=== PATIENT | female | born 1960 | race Caucasian/White ===

== ENCOUNTER 2019-07-09 08:21 | Inpatient (IN) ==
--- NOTE | 2019-07-09 09:32 | XRay Report ---
XR chest 2V routine CLINICAL HISTORY: continued cough/weakness COMPARISON STUDY: Chest radiograph July 02, 2019. FINDINGS: A right subclavian pacer is in place. There are median sternotomy wires. Moderate cardiomeg randy is unchanged. There is no pneumothorax or pleural effusion. Bilateral perihilar opacities have in creased since exam July 02, 2019. IMPRESSION: 1. Increase in bilateral perihilar opacities since chest radiograph of July 02, 2019. This patter n favors alveolar pulmonary edema however bilateral pneumonia could appear similar. Radiographic foll ow-up to ensure resolution is recommended. 2. Moderate cardiomegaly. Electronically signed by: Nick De La Rosa M.D. 07/09/2019 9:31 AM
[2019-07-09 09:54] LABS: Basophils # (auto) 0.14 K/uL (0-0.2); Basophils % (auto) 1.1 %; Eosinophils # (auto) 1.59 K/uL (0-0.5); Eosinophils % (auto) 12.2 %; Hemoglobin 8.5 g/dL (12.0-16.0); Immature Granulocytes # (auto) 0.11 K/uL (0.00-0.02); Immature Granulocytes % (auto) 0.8 %; Lymphocytes # (auto) 1.56 K/uL (1.2-3.4); Mean Corpuscular Hemoglobin 28.1 pg (25-34); Mean Corpuscular Hgb Conc 31.5 g/dL (32-36); Mean Corpuscular Volume 89.1 fL (80-100); Mean Platelet Volume 9.9 fL (7.4-10.4); Monocytes # (auto) 1.12 K/uL (0.11-0.59); Monocytes % (auto) 8.6 %; Neutrophils # (auto) 8.53 K/uL (1.4-6.5); Neutrophils % (auto) 65.3 %; Nucleated RBC # (auto) 0.02 K/uL (0-0); Nucleated RBC % (auto) 0.2 %; Platelet Count 338 K/uL (130-400); RDW Coefficient of Variation 15.7 % (11.5-14.5); RDW Standard Deviation 50.7 fL (36.4-46.3); Red Blood Count 3.03 M/uL (4.2-5.4); White Blood Count 13.05 K/uL (4.8-10.8)
--- NOTE | 2019-07-09 10:03 | Emergency Department Note ---
History of Present Illness General Chief complaint: Shortness of Breath/Dyspnea Stated complaint: SOB,COUGHING UP BLOOD Time Seen by Provider: 07/09/19 08:34 Source: patient and family Mode of arrival: ambulatory Limitations: no limitations History of Present Illness This 58-year-old white female presents with her family, for increasing shortness of breath and coughing up small amounts of blood. Patient has been seen in an ED twice previously in the last 3 weeks. She has also seen her PCP. She states she was initially placed on doxycycline but was not getting better. She was switched to Levaquin last week, and finished her last dose yesterday. She states she is not any better and is in fact feeling worse. She has nightly low- grade fevers that she states run at 100. Frequent sweats. No nausea, vomiting, or diarrhea. No dark stools. She was previously given an inhaler but has not been using it. Occasional productive cough. She denies any other cold symptoms. Her family accompanies her today. She states she does see a formstone fitter in [place], and was told that she likely has CHF. She was also diagnosed with pneumonia here last week. She notes that her INR has been rising. She just had her INR checked on but does not have the results. PCP is Dr. To. Home Medications Home Medications Medication Instructions Recorded Confirmed Type albuterol sulfate [ProAir HFA] 2 puff INHALATION Q6H PRN 07/02/19 07/09/19 History allopurinol 300 mg PO HS 07/02/19 07/09/19 History benzonatate 100 mg PO TID PRN 07/02/19 07/09/19 History calcium carbonate [Calcium 500] 500 mg PO BID 07/02/19 07/09/19 History carvedilol 12.5 mg PO BID 07/02/19 07/09/19 History cholecalciferol (vitamin D3) 5,000 unit PO ARNETT 07/02/19 07/09/19 History [Vitamin D3] cyanocobalamin (vitamin B-12) 1,000 mcg PO HS 07/02/19 07/09/19 History [Vitamin B-12] diclofenac sodium 40 drp TOPICAL QID 07/02/19 07/09/19 History doxycycline monohydrate 100 mg PO BID 07/02/19 07/09/19 History furosemide 40 mg PO QAM 07/02/19 07/09/19 History glucosamine sulfate [Glucosamine] 1,500 mg PO DAILY 07/02/19 07/09/19 History levothyroxine 175 mcg PO TH 07/02/19 07/09/19 History levothyroxine 200 mcg PO SUMOTUWEFRSA 07/02/19 07/09/19 History lisinopril 40 mg PO DAILY 07/02/19 07/09/19 History magnesium oxide 400 mg PO TID 07/02/19 07/09/19 History metformin 500 mg PO BIDM 07/02/19 07/09/19 History montelukast 10 mg PO QAM 07/02/19 07/09/19 History potassium chloride 10 meq PO QAM 07/02/19 07/09/19 History warfarin 2 mg PO TH 07/02/19 07/09/19 History warfarin 10 mg PO SUMOTUWEFRSA 07/02/19 07/09/19 History warfarin 10 mg PO TH 07/02/19 07/09/19 History Allergies Allergy/AdvReac Type Severity Reaction Status Date / Time azithromycin Allergy Intermediate Rash Unverified 07/09/19 09:11 [From Zithromax Z-Jhoan] Sulfa (Sulfonamide Allergy Intermediate Rash Unverified 07/09/19 09:11 Antibiotics) Past Med/Surg History Medical History Hemoptysis (Acute) Gout (Chronic) Anemia (Acute) Vitamin B12 deficiency (Chronic) Neuropathy (Chronic) Diabetes mellitus type 2, controlled (Chronic) Hypothyroidism (Chronic) Atrial fibrillation (Chronic) CHF (congestive heart failure) (Acute) Pneumonia (Acute) Pacemaker (Chronic) Status post tubal ligation (Chronic) Surgical History History of mitral valve replacement with mechanical valve (Chronic) Status post appendectomy (Chronic) Status post colonoscopy (Chronic) Status post placement of cardiac pacemaker (Chronic) Family History Father Heart disease Diabetes Brother Colorectal cancer Brother Heart disease Diabetes Mother Degenerative disease of basal ganglia Other No significant family history Social History (Reviewed 07/09/19 @ 16:22 by MIKE Flores Preferred Language: Korean Communication Ability: Effective Optics Engineer Required: No Beliefs That Will Affect Care: None marital status: Current Living Situation: Spouse and Family current occupational status: employed Other Information That Helps Us Care for You: No Feels Safe at Home: Yes Safety Concerns: Feels Safe At This Time Smoking Status: Former smoker Do You Dip or Chew Tobacco: No ; Second Hand Exposure: No ; Tobacco Cessation Education Requested by Patient: No Hx Alcohol Use: No Hx Substance Use: No Review of Systems A total of 10 systems reviewed and were otherwise negative Physical Exam Vital Signs Vital Signs - 24 hr 07/09/19 08:28 07/09/19 09:15 07/09/19 10:37 Temperature 36.6 C Temperature Source Oral Sepsis Recent Fever Within 48 Hours No Sepsis Action Taken by Nursing No Action Required Pulse Rate 71 Pulse Rate [Finger] 72 Respiratory Rate 20 18 Respiratory Effort / Characteristics Non-Labored Spontaneous Respiratory Depth Normal Normal Respiratory Pattern Regular Blood Pressure 118/57 L Blood Pressure [Right Arm] 125/59 L Blood Pressure Mean 77 Blood Pressure Mean [Right Arm] 81 Pulse Oximetry 92 87 L Oxygen Delivery Method Room Air Room Air Room Air General: Well-developed, well-nourished, middle-aged white female, in no acute distress. She does seem slightly short of breath. Sitting on the bed. Alert and oriented. Skin: Warm and dry with good turgor. No rashes or lesions. No ecchymosis or erythema. The patient is not diaphoretic. No abrasions. HEENT: Normocephalic atraumatic. Eyes PERRLA, EOMI. No conjunctiva or scleral injection. Ears TMs intact bilaterally with good light reflexes. No erythema or bulging. No hemotympanum. Canals are patent. Nares patent bilaterally without turbinate enlargement. No significant drainage. No epistaxis. Oropharynx without erythema or exudate. Uvula midline, oral mucosa moist. No lesions present. Fair dentition. Heart: Heart RRR. 2/6 systolic ejection murmur noted. No gallops or rubs. Peripheral pulses are 2+. Lungs: Lungs are clear to auscultation. No crackles rhonchi or wheezing. Good air movement. Prolonged exhalation. The patient is able to take a deep breath. Abdomen: Abdomen was inspected, auscultated, and palpated. Obese. Bowel sounds present x 4. Soft, nontender to palpation. No hepato-splenomegaly. No masses noted. No rebound. Musculoskeletal: Gross motor function of the upper and lower extremities is intact and unremarkable. Neurologic: Gross sensation is intact across the upper and lower extremities by soft touch. Course Administered Medications Allopurinol (Zyloprim) 300 mg PO HS JENELLE Stop: 08/08/19 20:59 Last Admin: 07/09/19 20:25 Dose: 300 mg Documented by: [id number] Carvedilol (Coreg) 12.5 mg PO BID [facility] Stop: 08/08/19 20:59 Last Admin: 07/10/19 08:26 Dose: 12.5 mg Documented by: [id number] Admin: 07/09/19 20:25 Dose: 12.5 mg Documented by: [id number] Insulin Aspart (Novolog Flexpen) 0 units SC ACHS [facility] Stop: 08/08/19 16:29 Last Admin: 07/10/19 17:15 Dose: 3 units Documented by: [id number] Cosigned by: [id number] Admin: 07/10/19 11:57 Dose: 1 units Documented by: [id number] Cosigned by: [id number] Admin: 07/10/19 08:21 Dose: 3 units Documented by: [id number] Cosigned by: [id number] Admin: 07/09/19 20:27 Dose: Not Given Documented by: [id number] Cosigned by: [id number] Admin: 07/09/19 17:30 Dose: Not Given Documented by: [id number] Cosigned by: [id number] Insulin Glargine (Lantus Solostar Pen) 0 - 15 units SC BID [facility]; Protocol Stop: 08/08/19 20:59 Last Admin: 07/10/19 08:21 Dose: Not Given Documented by: [id number] Cosigned by: [id number] Admin: 07/09/19 20:27 Dose: Not Given Documented by: [id number] Cosigned by: [id number] Levothyroxine Sodium (Synthroid) 200 mcg PO [email or web address] [facility] Stop: 08/08/19 13:29 Last Admin: 07/10/19 06:30 Dose: 200 mcg Documented by: [id number] Admin: 07/09/19 13:15 Dose: Not Given Documented by: [id number] Lisinopril (Zestril) 40 mg PO DAILY JENELLE Stop: 08/09/19 08:59 Last Admin: 07/10/19 08:27 Dose: 40 mg Documented by: [id number] Magnesium Oxide (Mag-Ox) 400 mg PO TID JENELLE Stop: 08/08/19 13:59 Last Admin: 07/10/19 14:30 Dose: 400 mg Documented by: [id number] Admin: 07/10/19 08:27 Dose: 400 mg Documented by: [id number] Admin: 07/09/19 20:26 Dose: 400 mg Documented by: [id number] Admin: 07/09/19 14:07 Dose: 400 mg Documented by: [id number] Montelukast Sodium (Singulair) 10 mg PO QAM JENELLE Stop: 08/09/19 08:59 Last Admin: 07/10/19 08:27 Dose: 10 mg Documented by: [id number] Medical Decision Making Differential Diagnosis Pneumonia, CHF, COPD, PE, pneumonitis, hemoptysis, GI bleed Medical Records Attestation: I reviewed the patient's medical records. Home Medications Current Medication List: was personally reviewed by me Laboratory Data Attestation: I reviewed the patient's lab results. CBC, chemistry panel, PT/INR, and BNP were obtained. CBC shows elevated WBCs at 13.0. Worsening anemia at hemoglobin 8.5 hematocrit 27.0. PT 58.6. INR 6.5. BUN 26 with creatinine 1.11. BNP normal at 178. Old records were reviewed. On June 24 WBCs were 11.5 with hemoglobin of 10.2 and hematocrit 32.1. June 24 INR was 4.0. BNP was 787 at that time. 3 days ago WBCs were 11.1 with an H&H of 9.1 and 29.3. INR at that time was 4.4. Result diagrams: 07/10/19 06:19 07/10/19 06:19 Lab Results 07/09/19 07/09/19 07/09/19 Range/Units 09:40 09:40 09:40 WBC 13.05 H (4.8-10.8) K/uL RBC 3.03 L (4.2-5.4) M/uL Hgb 8.5 L (12.0-16.0) g/dL Hct 27.0 L (37-47) % MCV 89.1 (80-100) fL MCH 28.1 (25-34) pg MCHC 31.5 L (32-36) g/dL RDW Std Deviation 50.7 H (36.4-46.3) fL RDW Coeff of Praveena 15.7 H (11.5-14.5) % Plt Count 338 (130-400) K/uL MPV 9.9 (7.4-10.4) fL Immature Gran % (Auto) 0.8 % Neut % (Auto) 65.3 % Lymph % (Auto) 12.0 % [place] % (Auto) 8.6 % Eos % (Auto) 12.2 % Baso % (Auto) 1.1 % Immature Gran # (Auto) 0.11 H (0.00-0.02) K/uL Neut # (Auto) 8.53 H (1.4-6.5) K/uL Lymph # (Auto) 1.56 (1.2-3.4) K/uL [place] # (Auto) 1.12 H (0.11-0.59) K/uL Eos # (Auto) 1.59 H (0-0.5) K/uL Baso # (Auto) 0.14 (0-0.2) K/uL Absolute Nucleated RBC 0.02 H (0-0) K/uL Nucleated RBC % (auto) 0.2 % PT 58.6 H (9.0-12.0) Seconds INR 6.5 H* (0.9-1.1) Sodium 138 (136-145) mmol/L Potassium 4.3 (3.5-5.1) mmol/L Chloride 107 (98-107) mmol/L Carbon Dioxide 26 (21-32) mmol/L Anion Gap 5.0 (3-11) BUN 26 H (7-18) mg/dl Creatinine 1.11 (0.6-1.2) mg/dl Est Cr Clr Drug Dosing 63.2 ml/min Est GFR ( Amer) 63.4 Est GFR (Non-Af Amer) 54.7 BUN/Creatinine Ratio 23.6 H (10-20) Glucose 103 H (70-99) mg/dl Calcium 9.1 (8.5-10.1) mg/dl Total Bilirubin 1.0 (0.2-1) mg/dl Direct Bilirubin 0.2 (0-0.2) mg/dl AST 23 (15-37) U/L ALT 17 (12-78) U/L Alkaline Phosphatase 96 (45-117) U/L NT-Pro-B Natriuret Pep 178 (0-900) pg/ml Total Protein 7.3 (6.4-8.2) gm/dl Albumin 3.3 L (3.4-5.0) gm/dl Globulin 4.0 (2.5-4.0) gm/dl Albumin/Globulin Ratio 0.8 L (0.9-2) Imaging Data Radiologist's Impression: Chest x-ray obtained today shows increase in bilateral perihilar opacities since chest radiograph of July 02, 2019. This pattern favors alveolar pulmonary edema however bilateral pneumonia could appear s imilar. Radiographic follow-up to ensure resolution is recommended. This was read by radiology and reviewed by me. Blood Pressure Blood Pressure Findings: Normal blood pressure MDM Narrative Patient was evaluated in B3. IV was established. Labs were obtained. She was initially hypoxic at 87% on room air. She was given oxygen 4 L by nasal cannula and saturation improved to mid 90s. Chest x-ray was obtained that suggested worsening pneumonia or pulmonary edema. WBCs are elevated and INR is supratherapeutic at 6.5. She is also anemic. Because of the multitude of her findings, I do think she would be better managed as an inpatient. Discussion was held with the family and they agree. Patient is in agreement. Hospitalist service was consulted. Please see that dictation for final management. Given her recent completion of 2 separate courses of oral antibiotics, no additional IV antibiotics were provided at this time. I will leave that to the hospitalist team. Patient remained stable while in the ED. Patient was seen in conjunction with Dr. Sams, who also evaluated the patient and concurred with today's diagnosis and treatment plan. Impression & Plan Anemia, Hemoptysis, Hypoxia, Abnormal chest xray Discharge Plan Visit Data *Final* Discharge Date/Time: 07/09/19 12:29 Chief Complaint: Shortness of Breath/Dyspnea Stated Complaint: SOB,COUGHING UP BLOOD ED Provider: Dany Sams ED Midlevel Provider: Danyel Elkins Discharge Problem: Anemia, Hemoptysis, Hypoxia, Abnormal chest xray Patient Disposition: Admitted As Inpatient Discharge Instructions Interventions: ED Discharge Assessment Last Done: 07/09/19 12:29
[2019-07-09 10:11] LABS: Albumin Level 3.3 gm/dl (3.4-5.0); BUN Creatinine Ratio 23.6 (10-20); Bilirubin Direct 0.2 mg/dl (0-0.2); Calcium 9.1 mg/dl (8.5-10.1); Creatinine Clr Calc Pharmacy 63.2 ml/min; Est GFR (African American) 63.4; Est GFR (Non-African American) 54.7; Potassium 4.3 mmol/L (3.5-5.1); Prothrombin Time 58.6 Seconds (9.0-12.0)
[2019-07-09 10:14] LABS: Albumin Globulin Ratio 0.8 (0.9-2); Total Protein 7.3 gm/dl (6.4-8.2)
[2019-07-09 10:35] LABS: INR 6.5 (0.9-1.1)
[2019-07-09] MEDS ORDERED: ALBUTEROL HFA 8 GM INHALER INH PRN (12:45)
--- NOTE | 2019-07-09 13:00 | History & Physical Report ---
Date of Service July 09, 2019 Assessment & Plan (1) Hypoxia: Patient presented to ED with progressive dyspnea. O2 saturation as low as 87% on RA. Hypoxia could be secondary to cardiac or pulmonary etiologies as discussed below. Continue supplemental O2. (2) Abnormal chest xray: Chest x-ray suggests pulmonary edema +/- bilat infiltrates. History of valvular heart disease; baseline LVEF not available at this time. Pro-BNP normal, argues against decompensated CHF. Could have noncardiac pulmonary edema. Doubt pulmonary embolism- very unlikely in light of supratherapeutic INR and normal D-dimer last week. Consider infectious etiologies. Consider vasculitis (e.g., GPA). Consider alveolar hemorrhage. Consider occupational exposure (cleaning supplies, pool chemicals). Check CT chest (very low clinical suspicion for PE, so will do without contrast). Check echo. Check procalcitonin, blood cultures, Legionella IgM, Mycoplasma IgM, ESR, c- reactive protein, ANCA screen, UA. Check sputum gram stain, routine culture, AFB. Check nasopharyngeal swab for influenza A/B and MRSA. Has received doxycycline and levofloxacin over past 2 weeks; will not start additional antibiotics unless pending data support need or clinical status changes. Consult Cardiology and Pulmonary Medicine. (3) Hemoptysis: As noted above. (4) Anemia: Hgb today 8.5, compared to 10 on 07/02/19. MCV 89. INR supratherapeutic. History of B12 deficiency on oral replacement. Patient experiencing hemoptysis, but relatively small volumes. She reports dark urine- UA pending. No apparent melena or hematochezia. Check Fe studies, B12, folate. Check stools for OB. Monitor H/H. Type and screen pRBC's. Transfuse as necessary per guidelines. Titrate warfarin to maintain INR in therapeutic range. (5) Atrial fibrillation: Chronic atrial fibrillation. Continue carvedilol and warfarin. (6) History of mitral valve replacement with mechanical valve: S/P MVR 18 years ago with mechanical valve. Details of underlying valvular pathology not available at this time. Continue warfarin. Check echo to assess valve structure / function. (7) Diabetes mellitus type 2, controlled: Well-controlled on metformin. Random glucose in ED 103. Check hemoglobin A1C. Hold metformin during hospital stay. Lantus / NovoLog per protocol. (8) Hypothyroidism: Patient reports that recent TSH was normal. Continue current dose of levothyroxine. (9) Gout: No recent flares. Continue allopurinol. (10) Neuropathy: Attributed to B12 deficiency. (11) Vitamin B12 deficiency: B12 deficiency on oral replacement. Check B12 level to ensure adequate absorption. (12) DVT prophylaxis: On warfarin for AF and mechanical MVR. INR supratherapeutic. Hold warfarin today. Check INR daily and titrate warfarin to maintain INR 2.5 - 3.5. (13) Discharge planning issues: Anticipated discharge to home. Primary care follow-up with Dr. To. Cardiology follow-up with Dr. Gallardo. INCOMPLETE DATA: Cardiology records from Dr. Gallardo's office requested. History of Present Illness Chief Complaint: shortness of breath, cough, hemoptysis Primary Care Provider: Brown To MD 58 YO female followed by Dr. To in [place] for primary care and Dr. Gallardo in [place] for Cardiology. History of congenital AV block since childhood and mitral valve disease. Mitral valve replacement with a mechanical valve and pacemaker performed at [facility] at the age of 40. Other medical problems include diabetes mellitus type 2, hypothyroidism, gout. She was in her usual state of health until about 3 weeks ago when she developed chills, malaise, wheezing, and a cough. Cough was productive of small blood clots. She takes warfarin for mechanical MVR + AF; INR's have recently been therapeutic / supratherapeutic. Seen in ED at [facility] around 06/24. [place] to have pneumonia and was prescribed a course of doxycycline. Came to the ED at [facility] 07/02/19 because of persistent hemoptysis and dyspnea. INR was 4.0. D-dimer was negative. Chest x-ray showed cardiomegaly, mild CHF, perihilar airspace opacities. Antibiotic therapy was changed from doxycycline to levofloxacin. She has not had any recent weight gain or edema. Pt not aware of being diagnosed with CHF in past. Last echo was about 1 year ago. Usually takes furosemide 40 mg daily. Instructed to increase furosemide dose to 80 mg daily for 4 days because of apparent CHF on chest x-ray. She diuresed and lost several pounds, but there was no significant improvement of her SOB. Returned to ED today with progressive malaise, cough, hemoptysis, dyspnea. Possible low grade temp at home. No chest pain. O2 sats in ED were as low as 87%. [place] less dyspneic after administration of O2. 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 Exposed to cleaning agents, but nothing that she identifies as caustic. 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 No travel history. No sick contacts. Allergies Allergy/AdvReac Type Severity Reaction Status Date / Time azithromycin Allergy Intermediate Rash Unverified 07/09/19 09:11 [From Zithromax Z-Jhoan] Sulfa (Sulfonamide Allergy Intermediate Rash Unverified 07/09/19 09:11 Antibiotics) Home Medications Home Medications Medication Instructions Recorded Confirmed Type albuterol sulfate [ProAir HFA] 2 puff INHALATION Q6H PRN 07/02/19 07/09/19 History allopurinol 300 mg PO HS 07/02/19 07/09/19 History benzonatate 100 mg PO TID PRN 07/02/19 07/09/19 History calcium carbonate [Calcium 500] 500 mg PO BID 07/02/19 07/09/19 History carvedilol 12.5 mg PO BID 07/02/19 07/09/19 History cholecalciferol (vitamin D3) 5,000 unit PO ARNETT 07/02/19 07/09/19 History [Vitamin D3] cyanocobalamin (vitamin B-12) 1,000 mcg PO HS 07/02/19 07/09/19 History [Vitamin B-12] diclofenac sodium 40 drp TOPICAL QID 07/02/19 07/09/19 History doxycycline monohydrate 100 mg PO BID 07/02/19 07/09/19 History furosemide 40 mg PO QAM 07/02/19 07/09/19 History glucosamine sulfate [Glucosamine] 1,500 mg PO DAILY 07/02/19 07/09/19 History levothyroxine 175 mcg PO TH 07/02/19 07/09/19 History levothyroxine 200 mcg PO SUMOTUWEFRSA 07/02/19 07/09/19 History lisinopril 40 mg PO DAILY 07/02/19 07/09/19 History magnesium oxide 400 mg PO TID 07/02/19 07/09/19 History metformin 500 mg PO BIDM 07/02/19 07/09/19 History montelukast 10 mg PO QAM 07/02/19 07/09/19 History potassium chloride 10 meq PO QAM 07/02/19 07/09/19 History warfarin 2 mg PO TH 07/02/19 07/09/19 History warfarin 10 mg PO SUMOTUWEFRSA 07/02/19 07/09/19 History warfarin 10 mg PO TH 07/02/19 07/09/19 History Past Med/Surg History Medical History Hemoptysis (Acute) Gout (Chronic) Anemia (Acute) Vitamin B12 deficiency (Chronic) Neuropathy (Chronic) Diabetes mellitus type 2, controlled (Chronic) Hypothyroidism (Chronic) Atrial fibrillation (Chronic) CHF (congestive heart failure) (Acute) Pneumonia (Acute) Pacemaker (Chronic) Status post tubal ligation (Chronic) Surgical History History of mitral valve replacement with mechanical valve (Chronic) Status post appendectomy (Chronic) Status post colonoscopy (Chronic) Status post placement of cardiac pacemaker (Chronic) Family History Father Heart disease Diabetes Brother Colorectal cancer Brother Heart disease Diabetes Mother Degenerative disease of basal ganglia Other No significant family history Social History Preferred Language: Sinhala Communication Ability: Effective Caul Fat Puller Required: No Beliefs That Will Affect Care: None marital status: Current Living Situation: Spouse and Family current occupational status: employed Other Information That Helps Us Care for You: No Feels Safe at Home: Yes Safety Concerns: Feels Safe At This Time Smoking Status: Former smoker Do You Dip or Chew Tobacco: No ; Second Hand Exposure: No ; Tobacco Cessation Education Requested by Patient: No Hx Alcohol Use: No Hx Substance Use: No Review of Systems Constitutional: + fever (? low grade), + malaise and + weight gain (wt fluctuates) Eyes: no diplopia and no worsening vision Ear, Nose, Mouth, Throat: no nasal congestion, no sinus pain/pressure and no sore throat Respiratory: as per Subjective / HPI Cardiovascular: as per Subjective / HPI Gastrointestinal: + diarrhea/loose stools (chronic, intermittent, attributed to magnesium supplement); no nausea, no vomiting, no constipation, no blood in stools and no melena Genitourinary: no dysuria and no hematuria Musculoskeletal: + joint pain Neurologic: no headache(s) neuropathy attributed to B12 deficiency Endocrine: no polydipsia and no polyuria blood sugars well controlled, usually in low-mid 100's Hematologic / Lymphatic: no lymphadenopathy Physical Exam Constitutional: WD/WN, vitals as above no acute distress Eyes: PERRL, conjunctivae normal, anicteric sclerae ENMT: external ear and nose normal, oropharynx normal Neck: trachea midline, no thyromegaly Respiratory: normal respiratory effort, lungs clear to auscultation Cardiovascular: Rate/Rhythm: regular rate Heart Sounds: + murmur (mechanical valve sounds in mitral position with II/ systolic murmur); no gallop and no cardiac rub Vessels: normal peripheral pulses and dorsalis pedis pulses present; no JVD Extremities: normal capillary refill and + edema (trace pretibial); no calf tenderness Gastrointestinal (Abdomen): normal bowel sounds, soft, nontender, no hepatosplenomegaly ((exam limited due to body habitus)) Musculoskeletal: Head/Neck/Chest: neck supple Extremities: strength 5/5 throughout; no cyanosis and no clubbing Skin: no rashes, warm and dry mild pretibial venous stasis changes Neurologic: PERRL, EOMI no facial palsy no dysarthria or aphasia patellar DTR's 1/2 bilat Psychiatric: Orientation: alert and oriented x 3 Affect: euthymic affect Lymphatic: no cervical lymphadenopathy Results & Data Vital Signs (Past 12 Hours) Vital Signs Temp Pulse Pulse Resp BP BP Pulse Ox 07/09/19 12:49 36.6 C 75 18 132/77 96 07/09/19 12:00 73 20 136/70 93 07/09/19 10:37 72 18 125/59 L 87 L 07/09/19 08:28 36.6 C 71 20 118/57 L 92 Laboratory Results Laboratory Results - last 24 hr 07/09/19 07/09/19 07/09/19 09:40 09:40 09:40 WBC 13.05 H RBC 3.03 L Hgb 8.5 L Hct 27.0 L MCV 89.1 MCH 28.1 MCHC 31.5 L RDW Std Deviation 50.7 H RDW Coeff of Praveena 15.7 H Plt Count 338 MPV 9.9 Immature Gran % (Auto) 0.8 Neut % (Auto) 65.3 Lymph % (Auto) 12.0 [place] % (Auto) 8.6 Eos % (Auto) 12.2 Baso % (Auto) 1.1 Immature Gran # (Auto) 0.11 H Neut # (Auto) 8.53 H Lymph # (Auto) 1.56 [place] # (Auto) 1.12 H Eos # (Auto) 1.59 H Baso # (Auto) 0.14 Absolute Nucleated RBC 0.02 H Nucleated RBC % (auto) 0.2 PT 58.6 H INR 6.5 H* Sodium 138 Potassium 4.3 Chloride 107 Carbon Dioxide 26 Anion Gap 5.0 BUN 26 H Creatinine 1.11 Est Cr Clr Drug Dosing 63.2 Est GFR ( Amer) 63.4 Est GFR (Non-Af Amer) 54.7 BUN/Creatinine Ratio 23.6 H Glucose 103 H Calcium 9.1 Total Bilirubin 1.0 Direct Bilirubin 0.2 AST 23 ALT 17 Alkaline Phosphatase 96 NT-Pro-B Natriuret Pep 178 Total Protein 7.3 Albumin 3.3 L Globulin 4.0 Albumin/Globulin Ratio 0.8 L Diagnostic Findings Chest x-ray reviewed by undersigned and formally interpreted by Radiology: FINDINGS: A right subclavian pacer is in place. There are median sternotomy wires. Moderate cardiomegaly is unchanged. There is no pneumothorax or pleural effusion. Bilateral perihilar opacities have increased since exam July 02, 2019. IMPRESSION: 1. Increase in bilateral perihilar opacities since chest radiograph of July 02, 2019. This pattern favors alveolar pulmonary edema however bilateral pneumonia could appear similar. Radiographic follow-up to ensure resolution is recommended. 2. Moderate cardiomegaly. Electronically signed by: Nick De La Rosa M.D. 07/09/2019 9:31 AM ECG Additional Comments: EKG performed 07/02/19 reviewed and demonstrated paced rhythm at 62/min, underlying AF. Code Status & VTE Plan VTE Prophylaxis Plan VTE Prophylaxis will be ordered: Yes
[2019-07-09] MEDS: LEVOTHYROXINE SODIUM 200 MCG TABLET PO SCH (13:15)
[2019-07-09] MEDS ORDERED: PNEUMOCOCCAL ADMINISTRATION CHARGE ONE (13:45)
[2019-07-09] MEDS ORDERED: PNEUMOCOCCAL POLYSACCHARIDES 25 MCG/0.5 ML VIAL/SYR IM ONE (13:45)
--- NOTE | 2019-07-09 13:59 | Cardiology Consultation ---
Date of Consultation July 09, 2019 Assessment & Plan (1) Hemoptysis: (2) Anemia: (3) Diabetes mellitus type 2, controlled: (4) Atrial fibrillation: (5) History of mitral valve replacement with mechanical valve: (6) Pacemaker: (7) Pneumonitis: I do not believe the patient's symptoms are necessarily due to heart failure. She does not examine like she is in heart failure. I believe that we are dealing with a pneumonitis of unknown etiology. Pulmonary consult is planned. I will obtain an echocardiogram to evaluate her mechanical mitral valve as well as systolic function. I would continue with her current medications however, I would hold her warfarin until her INR is more therapeutic. I do not believe any additional diuresis will make a clinical difference. The hemoptysis can certainly be related to the warfarin however, she has been on this medication for almost 20 years without previous bleeding. She is currently anemic most likely from chronic blood loss. We will follow along with you during her hospital stay. We will try to obtain records from [facility]. History of Present Illness Attending Physician: Homero Zarate MD History of Present Illness This is a 58-year-old female who has received the majority of her health care through [facility]. At age 3 she developed rheumatic fever. She also has a history of congenital heart block but required no immediate treatment. Then in 1999 she received a mechanical mitral valve with the surgery being completed at [facility] along with a permanent pacemaker. It is assumed, the surgery was completed due to mitral valve disease from rheumatic fever uncertain if that was mitral stenosis or mitral regurgitation. The patient has done well over the years. 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 This past summer was particularly difficult for her. There were several youth camps through the [facility]. Then in late May she began to develop increasing shortness of breath. She states that this is not necessarily unusual for her, at the end of each summer and into the fall she usually has some increased shortness of breath requiring an inhaler and some extra diuretics. But then on June 24 she developed hemoptysis. She was seen at [facility] and diagnosed with pneumonia. She was started on Biaxin. She continued to have hemoptysis and shortness of breath. When she had no improvement her wind site manager increased her Lasix to 80 mg daily for 3 days. She completed her course of Biaxin. She had no improvement in her symptoms with the increased Lasix. She was then given a course of Levaquin. She continued to have hemoptysis and no improvement in her symptoms of dyspnea. She states that she cannot walk across the room without becoming short of breath. She was to see 1 of our local windows mobile developer as an outpatient but when her symptoms did not improved she presented to the emergency department where she has been admitted. Of note in the emergency department she had an O2 sat of 84% on room air. She also had a chest x-ray which indicates bilateral pulmonary infiltrates either due to pulmonary edema, interstitial pneumonitis or bilateral pneumonia. The chest x-ray also shows cardiomegaly. She stopped smoking many years ago. She does not use either nicotine or cannabis vaporizer. About a year ago she was diagnosed with diabetes. No previous history of kidney disease or strokes. Allergies Allergy/AdvReac Type Severity Reaction Status Date / Time azithromycin Allergy Intermediate Rash Unverified 07/09/19 09:11 [From Zithromax Z-Jhoan] Sulfa (Sulfonamide Allergy Intermediate Rash Unverified 07/09/19 09:11 Antibiotics) Home Medications Home Medications Medication Instructions Recorded Confirmed Type albuterol sulfate [ProAir HFA] 2 puff INHALATION Q6H PRN 07/02/19 07/09/19 History allopurinol 300 mg PO HS 07/02/19 07/09/19 History benzonatate 100 mg PO TID PRN 07/02/19 07/09/19 History calcium carbonate [Calcium 500] 500 mg PO BID 07/02/19 07/09/19 History carvedilol 12.5 mg PO BID 07/02/19 07/09/19 History cholecalciferol (vitamin D3) 5,000 unit PO ARNETT 07/02/19 07/09/19 History [Vitamin D3] cyanocobalamin (vitamin B-12) 1,000 mcg PO HS 07/02/19 07/09/19 History [Vitamin B-12] diclofenac sodium 40 drp TOPICAL QID 07/02/19 07/09/19 History doxycycline monohydrate 100 mg PO BID 07/02/19 07/09/19 History furosemide 40 mg PO QAM 07/02/19 07/09/19 History glucosamine sulfate [Glucosamine] 1,500 mg PO DAILY 07/02/19 07/09/19 History levothyroxine 175 mcg PO TH 07/02/19 07/09/19 History levothyroxine 200 mcg PO SUMOTUWEFRSA 07/02/19 07/09/19 History lisinopril 40 mg PO DAILY 07/02/19 07/09/19 History magnesium oxide 400 mg PO TID 07/02/19 07/09/19 History metformin 500 mg PO BIDM 07/02/19 07/09/19 History montelukast 10 mg PO QAM 07/02/19 07/09/19 History potassium chloride 10 meq PO QAM 07/02/19 07/09/19 History warfarin 2 mg PO TH 07/02/19 07/09/19 History warfarin 10 mg PO SUMOTUWEFRSA 07/02/19 07/09/19 History warfarin 10 mg PO TH 07/02/19 07/09/19 History Patient History Medical History Hemoptysis (Acute) Gout (Chronic) Anemia (Acute) Vitamin B12 deficiency (Chronic) Neuropathy (Chronic) Diabetes mellitus type 2, controlled (Chronic) Hypothyroidism (Chronic) Atrial fibrillation (Chronic) CHF (congestive heart failure) (Acute) Pneumonia (Acute) Pacemaker (Chronic) Status post tubal ligation (Chronic) Surgical History History of mitral valve replacement with mechanical valve (Chronic) Status post appendectomy (Chronic) Status post colonoscopy (Chronic) Status post placement of cardiac pacemaker (Chronic) Family History Father Heart disease Diabetes Brother Colorectal cancer Brother Heart disease Diabetes Mother Degenerative disease of basal ganglia Other No significant family history Social History Preferred Language: Portuguese Communication Ability: Effective Crown Ironer Operator Required: No Beliefs That Will Affect Care: None marital status: Current Living Situation: Spouse and Family current occupational status: employed Other Information That Helps Us Care for You: No Feels Safe at Home: Yes Safety Concerns: Feels Safe At This Time Smoking Status: Former smoker Do You Dip or Chew Tobacco: No ; Second Hand Exposure: No ; Tobacco Cessation Education Requested by Patient: No Hx Alcohol Use: No Hx Substance Use: No Review of Systems Review of Systems: All systems reviewed & are unremarkable except as noted in HPI & below Nothing additional Physical Exam Physical Exam: General: no acute distress and stated age Head: normocephalic, no masses, lesions, tenderness or abnormalities Eyes: conjunctiva are pink and non-injected, sclera clear Neck: supple, no adenopathy, no bruits, normal jugular venous pulse, no hepatojugular reflux Chest: normal shape and normal respiratory effort Lungs: clear to auscultation and percussion Cardiac Exam: - regular rate & rhythm, no murmurs gallops or rubs - normal S1, mechanical S2 Pulses: 2(+) throughout Abdomen: abdomen soft, non-tender, no abnormal masses and no hepatosplenomegaly Musculoskeletal: no gait disturbance, no joint inflammation, no deforming arthritis Extremities: no edema and no cyanosis Neuro: grossly normal exam Results & Data Vital Signs (Past 12 Hours) Vital Signs Temp Pulse Pulse Resp BP BP Pulse Ox 07/09/19 12:49 36.6 C 75 18 132/77 96 07/09/19 12:00 73 20 136/70 93 07/09/19 10:37 72 18 125/59 L 87 L 07/09/19 08:28 36.6 C 71 20 118/57 L 92 Laboratory Results Laboratory Results - last 24 hr 07/09/19 07/09/19 07/09/19 09:40 09:40 09:40 WBC 13.05 H RBC 3.03 L Hgb 8.5 L Hct 27.0 L MCV 89.1 MCH 28.1 MCHC 31.5 L RDW Std Deviation 50.7 H RDW Coeff of Praveena 15.7 H Plt Count 338 MPV 9.9 Immature Gran % (Auto) 0.8 Neut % (Auto) 65.3 Lymph % (Auto) 12.0 [place] % (Auto) 8.6 Eos % (Auto) 12.2 Baso % (Auto) 1.1 Immature Gran # (Auto) 0.11 H Neut # (Auto) 8.53 H Lymph # (Auto) 1.56 [place] # (Auto) 1.12 H Eos # (Auto) 1.59 H Baso # (Auto) 0.14 Absolute Nucleated RBC 0.02 H Nucleated RBC % (auto) 0.2 PT 58.6 H INR 6.5 H* Sodium 138 Potassium 4.3 Chloride 107 Carbon Dioxide 26 Anion Gap 5.0 BUN 26 H Creatinine 1.11 Est Cr Clr Drug Dosing 63.2 Est GFR ( Amer) 63.4 Est GFR (Non-Af Amer) 54.7 BUN/Creatinine Ratio 23.6 H Glucose 103 H Calcium 9.1 Total Bilirubin 1.0 Direct Bilirubin 0.2 AST 23 ALT 17 Alkaline Phosphatase 96 NT-Pro-B Natriuret Pep 178 Total Protein 7.3 Albumin 3.3 L Globulin 4.0 Albumin/Globulin Ratio 0.8 L Nasal Screen MRSA (PCR) Influenza Type A (PCR) Influenza Type B (PCR) 07/09/19 07/09/19 Unknown Unknown WBC RBC Hgb Hct MCV MCH MCHC RDW Std Deviation RDW Coeff of Praveena Plt Count MPV Immature Gran % (Auto) Neut % (Auto) Lymph % (Auto) [place] % (Auto) Eos % (Auto) Baso % (Auto) Immature Gran # (Auto) Neut # (Auto) Lymph # (Auto) [place] # (Auto) Eos # (Auto) Baso # (Auto) Absolute Nucleated RBC Nucleated RBC % (auto) PT INR Sodium Potassium Chloride Carbon Dioxide Anion Gap BUN Creatinine Est Cr Clr Drug Dosing Est GFR ( Amer) Est GFR (Non-Af Amer) BUN/Creatinine Ratio Glucose Calcium Total Bilirubin Direct Bilirubin AST ALT Alkaline Phosphatase NT-Pro-B Natriuret Pep Total Protein Albumin Globulin Albumin/Globulin Ratio Nasal Screen MRSA (PCR) Pending Influenza Type A (PCR) Pending Influenza Type B (PCR) Pending Medications Administered Current Inpatient Medications Acetaminophen (Tylenol) 650 mg PO Q4H PRN PRN Reason: Pain or Fever Stop: 08/08/19 12:44 Albuterol (Ventolin Hfa) 2 puffs INH Q6H PRN PRN Reason: Shortness Of Breath Or Wheezin Allopurinol (Zyloprim) 300 mg PO HS JENELLE Stop: 08/08/19 20:59 Carvedilol (Coreg) 12.5 mg PO BID JENELLE Stop: 08/08/19 20:59 Levothyroxine Sodium (Synthroid) 175 mcg PO Th@0630 JENELLE Stop: 08/12/19 06:29 Levothyroxine Sodium (Synthroid) 200 mcg PO [id number] [facility] Stop: 08/08/19 13:29 Last Admin: 07/09/19 13:15 Dose: Not Given Documented by: Lisinopril (Zestril) 40 mg PO DAILY [facility] Stop: 08/09/19 08:59 Magnesium Oxide (Mag-Ox) 400 mg PO TID [facility] Stop: 08/08/19 13:59 Montelukast Sodium (Singulair) 10 mg PO QAM [facility] Stop: 08/09/19 08:59
[2019-07-09] MEDS: MAGNESIUM OXIDE 400 MG TAB PO SCH ×2 (14:07→20:26)
[2019-07-09 14:31] LABS: Influenza A virus by PCR Neg for Influ A (Neg); Influenza B virus by PCR Neg for Influ B (Neg)
[2019-07-09] MEDS ORDERED: GLUCOSE 40% GEL 15 GM TUBE PO PRN (14:45)
[2019-07-09] MEDS ORDERED: GLUCAGON FOR INJ 1 MG VIAL IM PRN (14:45)
[2019-07-09] MEDS ORDERED: CARBOHYDRATES FOR HYPOGLYCEMIA PO PRN (14:45)
[2019-07-09] MEDS ORDERED: GLUCOSE 10 TABS/TUBE PO PRN (14:45)
[2019-07-09] MEDS ORDERED: DEXTROSE 50% 50 ML SYRINGE IV PRN (14:45)
[2019-07-09 16:09] LABS: Appearance Urine Clear (Clear); Bacteria Urine Automated Negative (Negative); Bilirubin Urine Negative (Negative); Blood Urine 2+ (Negative); Cast Urine Automated 0 /lpf (0-5); Color Urine Yellow; Epithelial Cell Urine Auto 20-30 /lpf (0-5); Glucose Urine UA Negative (Negative); Ketones Urine Negative (Negative); Leukocyte Esterase Urine Negative (Negative); Nitrite Urine Negative (Negative); Protein Urine Negative (Negative); Specific Gravity Urine 1.015 (1.000-1.030); Urobilinogen Urine Negative (Negative); WBC Urine Automated 0 /hpf (0-5)
--- NOTE | 2019-07-09 16:29 | CT Scan Report ---
CT OF THE CHEST WITHOUT IV CONTRAST CLINICAL HISTORY: Abnormal chest radiograph. Shortness of breath. COMPARISON STUDY: Chest radiograph performed earlier today. CT DOSE: 656.39 mGy.cm TECHNIQUE: Axial images of the chest were obtained without IV contrast. Images were reviewed in the axial, sagittal, and coronal planes. IV contrast was not administered for this examination. Automat ed exposure control was utilized for the study. A dose lowering technique was utilized adhering to t he principles of ALARA. FINDINGS: A right subclavian pacer is in place. There are median sternotomy wires. Prosthetic mitral valve is noted. Moderate cardiomegaly is noted. There is no pericardial effusion. Mildly enlarged pr ecarinal and subcarinal lymph nodes are noted. No pneumothorax or pleural effusion is noted. Extensiv e bilateral airspace opacities are noted within the lungs. No cavitation is identified. The central a irways are patent. Moderate dilatation of the main pulmonary artery is noted. Bony thorax is unremark able. Gallstones are noted within the gallbladder. IMPRESSION: 1. Extensive bilateral airspace opacities within the lungs. The appearance is nonspecific and differe ntial considerations include pulmonary edema, pneumonia and pulmonary hemorrhage. 2. Moderate cardiomegaly. Moderate dilatation of the main pulmonary artery which raises the possibili ty of pulmonary arterial hypertension. 3. A few mildly enlarged mediastinal lymph nodes which are probably reactive. 4. Cholelithiasis. Electronically signed by: Nick De La Rosa M.D. 07/09/2019 4:28 PM
[2019-07-09 16:56] LABS: C Reactive Protein 3.07 mg/dl (0-0.29); Magnesium 1.9 mg/dl (1.8-2.4)
--- NOTE | 2019-07-09 17:22 | Pulmonary Consultation ---
Date of Consultation July 09, 2019 Assessment & Plan (1) Acute hypoxemic respiratory failure: Impression: 58-year-old female with history of mitral valve replacement presenting now with diffuse pulmonary infiltrates, hypoxemic respiratory failure, and hemoptysis. Etiologies are diverse and well delineated in the hospitalist service. Alveolar hemorrhage would be highly likely although the etiology of the hemorrhage is unclear but certainly could be attributable just to having a supratherapeutic INR. ANCA have been ordered and are pending. She does have an elevated ESR and CRP raising the possibility of a inflammatory process which could potentially drive and alveolar hemorrhage. Procalcitonin is currently pending but she is completed 2 course of antibiotics without signific ant improvement in her symptoms making infection less likely. Urinalysis does demonstrate microscopic hematuria. Recommendations: 1. We will follow-up with serologies. Will discuss with lab and try to add anti-GBM to her panel. Would hold steroids for now. 2. I think the patient would benefit from bronchoscopy with BAL however we will have to hold until her INR is down below 1.5-1.7. Given her heart valve would not recommend reversal agents at the current time but rather would allow it to drift slowly down. 3. Hold antibiotics pending procalcitonin. If her procalcitonin becomes kirill edly elevated Consideration for antibiotics in the form of Rocephin and azithromycin may be appropriate. 4. Await formal echocardiogram read. Certainly valvular dysfunction may contribute to pulmonary hemorrhage and diffuse pulmonary opacities however her history is not entirely consistent with this diagnosis. Thanks for the opportunity to participate in the care, of this patient. We will continue to follow her with you. (2) Abnormal CT scan of lung: (3) Hemoptysis: History of Present Illness Attending Physician: Homero Zarate MD History of Present Illness Asked by Dr. Zarate to evaluate patient with hemoptysis and an abnormal CT scan. History is obtained from discussion with the referring physician as well as review the electronic medical record and interview the patient at the bedside. The patient is a 58-year-old male who is status post mitral valve replacement with a caged ball valve back in 1999. She is followed by a critical care physician assistant in [place] and gets a yearly echocardiogram. Her last echo was apparently performed in July but those results are not available to review. A repeat echo has been performed and is currently pending. The patient reports that she is chronically anticoagulated with a target INR between 3-1/2 and 4 as she has had TIAs and has a caged ball of mitral valve replacement. She states the end of May she developed an increase in shortness of breath. This is not uncommon for her as she states she typically tends to develop some shortness of breath in the early fall late summer. She does not report wheezing. She does have a history of tobacco abuse but quit smoking over 20 years ago. She has an about a [id number] history. 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 She does not have any occupational or environmental exposures. [place] have horses as well as dogs. She does not participate in the care of these animals. She did have parakeet several years ago but these have been removed from the house for quite a extended period of time. The patient did develop low-grade fevers at the end of May and was seen at an emergency room states that she was diagnosed with either heart failure or pneumonia and treated with a course of antibiotics. The antibiotics did little to improve her symptoms and she continued to have episodic hemoptysis. She describes her hemoptysis as scant and blood-streaked phlegm. Most of the blood is been dark but she has had occasional episodes of a faint amount of bright red blood. Due to the persistence of her symptoms that she sought care in the emergency room. She was evaluated and admitted to the hospitalist service. Cardiology consultation has been obtained. She was placed on oxygen and admitted. Antibiotics were not continued as she completed a course of levofloxacin and doxycycline in the outpatient setting. The admitting hospitalist has ordered Legionella serologies, ESR, ANCA, and urinalysis which are currently pending. She has no history of dc hematuria or purpura or ecchymoses. Allergies Allergy/AdvReac Type Severity Reaction Status Date / Time azithromycin Allergy Intermediate Rash Unverified 07/09/19 09:11 [From Zithromax Z-Jhoan] Sulfa (Sulfonamide Allergy Intermediate Rash Unverified 07/09/19 09:11 Antibiotics) Home Medications Home Medications Medication Instructions Recorded Confirmed Type albuterol sulfate [ProAir HFA] 2 puff INHALATION Q6H PRN 07/02/19 07/09/19 History allopurinol 300 mg PO HS 07/02/19 07/09/19 History benzonatate 100 mg PO TID PRN 07/02/19 07/09/19 History calcium carbonate [Calcium 500] 500 mg PO BID 07/02/19 07/09/19 History carvedilol 12.5 mg PO BID 07/02/19 07/09/19 History cholecalciferol (vitamin D3) 5,000 unit PO ARNETT 07/02/19 07/09/19 History [Vitamin D3] cyanocobalamin (vitamin B-12) 1,000 mcg PO HS 07/02/19 07/09/19 History [Vitamin B-12] diclofenac sodium 40 drp TOPICAL QID 07/02/19 07/09/19 History doxycycline monohydrate 100 mg PO BID 07/02/19 07/09/19 History furosemide 40 mg PO QAM 07/02/19 07/09/19 History glucosamine sulfate [Glucosamine] 1,500 mg PO DAILY 07/02/19 07/09/19 History levothyroxine 175 mcg PO TH 07/02/19 07/09/19 History levothyroxine 200 mcg PO SUMOTUWEFRSA 07/02/19 07/09/19 History lisinopril 40 mg PO DAILY 07/02/19 07/09/19 History magnesium oxide 400 mg PO TID 07/02/19 07/09/19 History metformin 500 mg PO BIDM 07/02/19 07/09/19 History montelukast 10 mg PO QAM 07/02/19 07/09/19 History potassium chloride 10 meq PO QAM 07/02/19 07/09/19 History warfarin 2 mg PO TH 07/02/19 07/09/19 History warfarin 10 mg PO SUMOTUWEFRSA 07/02/19 07/09/19 History warfarin 10 mg PO TH 07/02/19 07/09/19 History Patient History Medical History Hemoptysis (Acute) Gout (Chronic) Anemia (Acute) Vitamin B12 deficiency (Chronic) Neuropathy (Chronic) Diabetes mellitus type 2, controlled (Chronic) Hypothyroidism (Chronic) Atrial fibrillation (Chronic) CHF (congestive heart failure) (Acute) Pneumonia (Acute) Pacemaker (Chronic) Status post tubal ligation (Chronic) Surgical History History of mitral valve replacement with mechanical valve (Chronic) Status post appendectomy (Chronic) Status post colonoscopy (Chronic) Status post placement of cardiac pacemaker (Chronic) Family History Father Heart disease Diabetes Brother Colorectal cancer Brother Heart disease Diabetes Mother Degenerative disease of basal ganglia Other No significant family history Social History Preferred Language: Bengali Communication 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: 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 Beliefs That Will Affect Care: None marital status: Current Living Situation: Spouse and Family current occupational status: employed Other Information That Helps Us Care for You: No Feels Safe at Home: Yes Safety Concerns: Feels Safe At This Time Smoking Status: Former smoker Do You Dip or Chew Tobacco: No ; Second Hand Exposure: No ; Tobacco Cessation Education Requested by Patient: No Hx Alcohol Use: No Hx Substance Use: No Review of Systems Review of Systems: 12 point review of systems is completed with the patient and negative except as noted above in HPI Physical Exam Constitutional: WD/WN, vitals as above Neck: trachea midline, no thyromegaly Respiratory: Bilateral crackles. No wheezing Cardiovascular: S1 and S2 present. Mechanical systolic murmur Gastrointestinal (Abdomen): normal bowel sounds, soft, nontender, no hepatosplenomegaly Skin: no rashes, warm and dry Results & Data Vital Signs (Past 12 Hours) Vital Signs Temp Pulse Pulse Resp BP BP Pulse Ox 07/09/19 15:40 36.9 C 74 18 136/78 97 07/09/19 12:49 36.6 C 75 18 132/77 96 07/09/19 12:00 73 20 136/70 93 07/09/19 10:37 72 18 125/59 L 87 L 07/09/19 08:28 36.6 C 71 20 118/57 L 92 Laboratory Results 07/09/19 09:40 07/09/19 09:40 Diagnostic Findings Imaging studies independently reviewed. Chest x-ray from today demonstrated diffuse bilateral parenchymal opacities. CT of the chest from today independently reviewed. It demonstrated diffuse ihsan undglass opacities with subpleural/peripheral sparing. PG Care Time/CCT Total # of Minutes Spent Total Time Spent: 50 Total Time Spent with Patient: Total time spent is greater than 50% in coordination of care (as documented) at patient's floor/unit and/or counseling patient:
[2019-07-09] MEDS: INSULIN ASPART 100 UNITS/ML 3 ML PEN SC SCH ×2 (17:30→20:27)
[2019-07-09] MEDS: carvediloL 12.5 MG TAB PO SCH (20:25)
[2019-07-09] MEDS: allopurinoL 300 MG TAB PO SCH (20:25)
[2019-07-09] MEDS: INSULIN GLARGINE SOLOSTAR 100 UNITS/ML 3 ML PEN SC SCH (20:27)
[2019-07-10] MEDS: LEVOTHYROXINE SODIUM 200 MCG TABLET PO SCH (06:30)
[2019-07-10 06:34] LABS: Hematocrit (blood only) 26.7 % (37-47); Hemoglobin 8.2 g/dL (12.0-16.0); Mean Corpuscular Hemoglobin 27.2 pg (25-34); Mean Corpuscular Hgb Conc 30.7 g/dL (32-36); Mean Corpuscular Volume 88.4 fL (80-100); Mean Platelet Volume 9.4 fL (7.4-10.4); Platelet Count 318 K/uL (130-400); RDW Coefficient of Variation 15.9 % (11.5-14.5); RDW Standard Deviation 50.8 fL (36.4-46.3); Red Blood Count 3.02 M/uL (4.2-5.4); White Blood Count 10.88 K/uL (4.8-10.8)
[2019-07-10 06:52] LABS: INR 3.7 (0.9-1.1); Prothrombin Time 34.2 Seconds (9.0-12.0)
[2019-07-10 07:02] LABS: BUN Creatinine Ratio 24.2 (10-20); Calcium 8.5 mg/dl (8.5-10.1); Creatinine Clr Calc Pharmacy 73.6 ml/min; Est GFR (African American) 76.5; Potassium 4.2 mmol/L (3.5-5.1)
[2019-07-10 07:07] LABS: Ferritin 305.2 ng/ml (8-388)
--- NOTE | 2019-07-10 07:58 | XRay Report ---
XR chest 1V portable CLINICAL HISTORY: 58 years-old Female presenting with hypoxia. TECHNIQUE: Portable upright AP view of the chest was obtained. COMPARISON: 07/09/2019. FINDINGS: Right subclavian pacer with single lead to the right ventricular apex. An epicardial pacing wire is a lso suggested. Median sternotomy wires remain in place with breakage of several wires. Atherosclerosi s of the aortic arch. Cardiac silhouette moderately enlarged. Redemonstration of dense central predom inant opacities in the lungs, right greater than left. No large effusion or pneumothorax. Osseous str uctures normal. Upper abdomen normal. IMPRESSION: 1. No significant change in bilateral central predominant pulmonary infiltrates, right greater than left. This may represent slight asymmetric edema or multifocal pneumonia. 2. Cardiomegaly. Electronically signed by: Brady Meek M.D. 07/10/2019 7:56 AM
[2019-07-10 08:21] LABS: Estimated Average Glucose 108 mg/dl; Hemoglobin A1C 5.4 % (4.5-5.6)
[2019-07-10] MEDS: INSULIN ASPART 100 UNITS/ML 3 ML PEN SC SCH ×4 (08:21→21:01)
[2019-07-10] MEDS: INSULIN GLARGINE SOLOSTAR 100 UNITS/ML 3 ML PEN SC SCH ×2 (08:21→21:01)
[2019-07-10] MEDS: carvediloL 12.5 MG TAB PO SCH ×2 (08:26→20:01)
[2019-07-10] MEDS: MONTELUKAST SODIUM 10 MG TABLET PO SCH (08:27)
[2019-07-10] MEDS: lisinopriL 40 MG TAB PO SCH (08:27)
[2019-07-10] MEDS: MAGNESIUM OXIDE 400 MG TAB PO SCH ×3 (08:27→20:01)
[2019-07-10 08:37] LABS: Folate (Folic Acid) 13.93 ng/ml (>5.38)
--- NOTE | 2019-07-10 08:39 | Pulmonology Progress Note ---
Date of Service July 10, 2019 Assessment & Plan (1) Acute hypoxemic respiratory failure: Impression: 58-year-old female with history of mitral valve replacement presenting now with diffuse pulmonary infiltrates, hypoxemic respiratory failure, and hemoptysis. Etiologies are diverse and well delineated in the hospitalist note. Alveolar hemorrhage would be highly likely although the etiology of the hemorrhage is unclear but certainly could be attributable just to having a supratherapeutic INR. Multiple serologies pending. She does have an elevated ESR and CRP raising the possibility of a inflammatory process which could potentially drive an alveolar hemorrhage. Procalcitonin is negative and she has completed 2 course of antibiotics without significant improvement in her symptoms making infection less likely. Urinalysis does demonstrate microscopic hematuria. She has improved clinically and radiographically with holding her anticoagulation. Recommendations: 1. Await serologies. Would hold steroids for now. 2. I think the patient would benefit from bronchoscopy with BAL however we will have to hold until her INR is down below 1.5-1.7. Given her heart valve would not recommend reversal agents at the current time but rather would allow it to drift slowly down. If anticoagulation is required once the INR drops below 3, initiation of a heparin drip would be appropriate as long as it can be held for the bronchoscopy. We will make her n.p.o. after midnight in case her INR is acceptable. Will reassess in the morning 3. Hold antibiotics given the negative procalcitonin. 4. Await formal echocardiogram read. Certainly valvular dysfunction may contribute to pulmonary hemorrhage and diffuse pulmonary opacities however her history is not entirely consistent with this diagnosis. Management may be somewhat complicated given the need for long-term anticoagulation with her mitral valve replacement and potential complications associated with supratherapeutic INR We will continue to follow her with you. (2) Abnormal CT scan of lung: (3) Hemoptysis: Subjective Patient seen and examined. She states her hemoptysis is decreasing with holding her Coumadin. She is not really ambulating so cannot comment on shortness of breath. She does not report any subjective fevers or chills. Her x-ray today demonstrates partial clearing of the parenchymal opacities noted yesterday. Her oxygen requirement remains stable. She has not had any changes to her medical history or review of systems since I saw her last Review of Systems Review of Systems: 12 point review of systems is completed with the patient and negative except as noted above in HPI Physical Exam Constitutional: WD/WN, vitals as above Neck: trachea midline, no thyromegaly Respiratory: Few scant bilateral rales auscultated. No wheezing Gastrointestinal (Abdomen): normal bowel sounds, soft, nontender, no hepatosplenomegaly Skin: no rashes, warm and dry Results & Data Vital Signs (Past 12 Hours) Vital Signs Temp Pulse Resp BP Pulse Ox 07/10/19 07:15 36.4 C L 67 16 115/68 93 07/10/19 03:00 36.8 C 81 18 112/68 90 07/09/19 23:34 36.8 C 73 19 106/63 92 PG Care Time/CCT Total # of Minutes Spent Total Time Spent with Patient: Total time spent is greater than 50% in coordination of care (as documented) at patient's floor/unit and/or counseling patient:
--- NOTE | 2019-07-10 08:49 | Cardiology Progress Note ---
Date of Service July 10, 2019 Assessment & Plan (1) Hemoptysis: (2) Anemia: (3) Diabetes mellitus type 2, controlled: (4) Atrial fibrillation: (5) History of mitral valve replacement with mechanical valve: (6) Pacemaker: (7) Pneumonitis: Patient is currently clinically stable. Pulmonary consult appreciated. When the patient's INR is appropriate then bronchoscopy will proceed. I will review the echocardiogram. Subjective The patient had an uneventful night. Pulmonary consult is appreciated. The echocardiogram has been completed and I will review it. Review of Systems Review of Systems: All systems reviewed & are unremarkable except as noted in HPI & below Nothing additional to add. Physical Exam Physical Exam: General: no acute distress and stated age Head: normocephalic, no masses, lesions, tenderness or abnormalities Eyes: conjunctiva are pink and non-injected, sclera clear Neck: supple, no adenopathy, no bruits, normal jugular venous pulse, no hepatojugular reflux Chest: normal shape and normal respiratory effort Lungs: clear to auscultation and percussion Cardiac Exam: - regular rate & rhythm, no murmurs gallops or rubs - normal S1, mechanical S2 S2 Pulses: 2(+) throughout Abdomen: abdomen soft, non-tender, no abnormal masses and no hepatosplenomegaly Musculoskeletal: no gait disturbance, no joint inflammation, no deforming arthritis Extremities: no edema and no cyanosis Neuro: grossly normal exam Results & Data Vital Signs (Past 12 Hours) Vital Signs Temp Pulse Resp BP Pulse Ox 07/10/19 07:15 36.4 C L 67 16 115/68 93 07/10/19 03:00 36.8 C 81 18 112/68 90 07/09/19 23:34 36.8 C 73 19 106/63 92 Laboratory Results Laboratory Results - last 24 hr 07/09/19 07/09/19 07/09/19 09:40 09:40 09:40 WBC 13.05 H RBC 3.03 L Hgb 8.5 L Hct 27.0 L MCV 89.1 MCH 28.1 MCHC 31.5 L RDW Std Deviation 50.7 H RDW Coeff of Praveena 15.7 H Plt Count 338 MPV 9.9 Immature Gran % (Auto) 0.8 Neut % (Auto) 65.3 Lymph % (Auto) 12.0 White % (Auto) 8.6 Eos % (Auto) 12.2 Baso % (Auto) 1.1 Immature Gran # (Auto) 0.11 H Neut # (Auto) 8.53 H Lymph # (Auto) 1.56 White # (Auto) 1.12 H Eos # (Auto) 1.59 H Baso # (Auto) 0.14 Absolute Nucleated RBC 0.02 H Nucleated RBC % (auto) 0.2 ESR PT 58.6 H INR 6.5 H* Sodium 138 Potassium 4.3 Chloride 107 Carbon Dioxide 26 Anion Gap 5.0 BUN 26 H Creatinine 1.11 Est Cr Clr Drug Dosing 63.2 Est GFR ( Amer) 63.4 Est GFR (Non-Af Amer) 54.7 BUN/Creatinine Ratio 23.6 H Glucose 103 H POC Glucose Estimat Average Glucose Hemoglobin A1c Calcium 9.1 Magnesium Iron Transferrin Transferrin % Sat Ferritin Total Bilirubin 1.0 Direct Bilirubin 0.2 AST 23 ALT 17 Alkaline Phosphatase 96 C-Reactive Protein NT-Pro-B Natriuret Pep 178 Total Protein 7.3 Albumin 3.3 L Globulin 4.0 Albumin/Globulin Ratio 0.8 L Vitamin B12 Folate Procalcitonin Urine Color Urine Appearance Urine pH Ur Specific [place] Urine Protein Urine Glucose (UA) Urine Ketones Urine Blood Urine Nitrite Urine Bilirubin Urine Urobilinogen Ur Leukocyte Esterase Urine WBC (Auto) Urine RBC (Auto) U Hyaline Cast (Auto) U Epithel Cells (Auto) Urine Bacteria (Auto) Nasal Screen MRSA (PCR) Stool Occult Bld Scrn Rheumatoid Factor ANJUM Screen Anti-Proteinase 3 Anti-Myeloperoxidase ANCA Glomerular Base Memb Ab Influenza Type A (PCR) Influenza Type B (PCR) L.pneumophila IgM Ab Mycoplasma pneumon IgM Blood Type Antibody Screen 07/09/19 07/09/19 07/09/19 15:43 16:10 16:13 WBC RBC Hgb Hct MCV MCH MCHC RDW Std Deviation RDW Coeff of [place] Plt Count MPV Immature Gran % (Auto) Neut % (Auto) Lymph % (Auto) White % (Auto) Eos % (Auto) Baso % (Auto) Immature Gran # (Auto) Neut # (Auto) Lymph # (Auto) White # (Auto) Eos # (Auto) Baso # (Auto) Absolute Nucleated RBC Nucleated RBC % (auto) ESR PT INR Sodium Potassium Chloride Carbon Dioxide Anion Gap BUN Creatinine Est Cr Clr Drug Dosing Est GFR ( Amer) Est GFR (Non-Af Amer) BUN/Creatinine Ratio Glucose POC Glucose 99 Estimat Average Glucose Hemoglobin A1c Calcium Magnesium 1.9 Iron Transferrin Transferrin % Sat Ferritin Total Bilirubin Direct Bilirubin AST ALT Alkaline Phosphatase C-Reactive Protein 3.07 H NT-Pro-B Natriuret Pep Total Protein Albumin Globulin Albumin/Globulin Ratio Vitamin B12 Folate Procalcitonin Urine Color Yellow Urine Appearance Clear Urine pH 6.0 Ur Specific [place] 1.015 Urine Protein Negative Urine Glucose (UA) Negative Urine Ketones Negative Urine Blood 2+ H Urine Nitrite Negative Urine Bilirubin Negative Urine Urobilinogen Negative Ur Leukocyte Esterase Negative Urine WBC (Auto) 0 Urine RBC (Auto) 10-30 H U Hyaline Cast (Auto) 0 U Epithel Cells (Auto) 20-30 H Urine Bacteria (Auto) Negative Nasal Screen MRSA (PCR) Stool Occult Bld Scrn Rheumatoid Factor ANJUM Screen Anti-Proteinase 3 Anti-Myeloperoxidase ANCA Glomerular Base Memb Ab Influenza Type A (PCR) Influenza Type B (PCR) L.pneumophila IgM Ab Mycoplasma pneumon IgM Blood Type Antibody Screen 07/09/19 07/09/19 07/09/19 16:13 16:13 16:13 WBC RBC Hgb Hct MCV MCH MCHC RDW Std Deviation RDW Coeff of [place] Plt Count MPV Immature Gran % (Auto) Neut % (Auto) Lymph % (Auto) White % (Auto) Eos % (Auto) Baso % (Auto) Immature Gran # (Auto) Neut # (Auto) Lymph # (Auto) White # (Auto) Eos # (Auto) Baso # (Auto) Absolute Nucleated RBC Nucleated RBC % (auto) ESR 45 H PT INR Sodium Potassium Chloride Carbon Dioxide Anion Gap BUN Creatinine Est Cr Clr Drug Dosing Est GFR ( Amer) Est GFR (Non-Af Amer) BUN/Creatinine Ratio Glucose POC Glucose Estimat Average Glucose Hemoglobin A1c Calcium Magnesium Iron Transferrin Transferrin % Sat Ferritin Total Bilirubin Direct Bilirubin AST ALT Alkaline Phosphatase C-Reactive Protein NT-Pro-B Natriuret Pep Total Protein Albumin Globulin Albumin/Globulin Ratio Vitamin B12 Folate Procalcitonin < 0.05 Urine Color Urine Appearance Urine pH Ur Specific [place] Urine Protein Urine Glucose (UA) Urine Ketones Urine Blood Urine Nitrite Urine Bilirubin Urine Urobilinogen Ur Leukocyte Esterase Urine WBC (Auto) Urine RBC (Auto) U Hyaline Cast (Auto) U Epithel Cells (Auto) Urine Bacteria (Auto) Nasal Screen MRSA (PCR) Stool Occult Bld Scrn Rheumatoid Factor ANJUM Screen Anti-Proteinase 3 Anti-Myeloperoxidase ANCA Glomerular Base Memb Ab Influenza Type A (PCR) Influenza Type B (PCR) L.pneumophila IgM Ab Pending Mycoplasma pneumon IgM Pending Blood Type Antibody Screen 07/09/19 07/09/19 07/09/19 16:13 16:13 16:13 WBC RBC Hgb Hct MCV MCH MCHC RDW Std Deviation RDW Coeff of [place] Plt Count MPV Immature Gran % (Auto) Neut % (Auto) Lymph % (Auto) White % (Auto) Eos % (Auto) Baso % (Auto) Immature Gran # (Auto) Neut # (Auto) Lymph # (Auto) White # (Auto) Eos # (Auto) Baso # (Auto) Absolute Nucleated RBC Nucleated RBC % (auto) ESR PT INR Sodium Potassium Chloride Carbon Dioxide Anion Gap BUN Creatinine Est Cr Clr Drug Dosing Est GFR ( Amer) Est GFR (Non-Af Amer) BUN/Creatinine Ratio Glucose POC Glucose Estimat Average Glucose Hemoglobin A1c Calcium Magnesium Iron Transferrin Transferrin % Sat Ferritin Total Bilirubin Direct Bilirubin AST ALT Alkaline Phosphatase C-Reactive Protein NT-Pro-B Natriuret Pep Total Protein Albumin Globulin Albumin/Globulin Ratio Vitamin B12 Folate Procalcitonin Urine Color Urine Appearance Urine pH Ur Specific [place] Urine Protein Urine Glucose (UA) Urine Ketones Urine Blood Urine Nitrite Urine Bilirubin Urine Urobilinogen Ur Leukocyte Esterase Urine WBC (Auto) Urine RBC (Auto) U Hyaline Cast (Auto) U Epithel Cells (Auto) Urine Bacteria (Auto) Nasal Screen MRSA (PCR) Stool Occult Bld Scrn Rheumatoid Factor Pending ANJUM Screen Pending Anti-Proteinase 3 Pending Anti-Myeloperoxidase Pending ANCA Pending Glomerular Base Memb Ab Pending Influenza Type A (PCR) Influenza Type B (PCR) L.pneumophila IgM Ab Mycoplasma pneumon IgM Blood Type O Positive Antibody Screen NEGATIVE 07/09/19 07/09/19 07/09/19 20:11 Unknown Unknown WBC RBC Hgb Hct MCV MCH MCHC RDW Std Deviation RDW Coeff of [place] Plt Count MPV Immature Gran % (Auto) Neut % (Auto) Lymph % (Auto) White % (Auto) Eos % (Auto) Baso % (Auto) Immature Gran # (Auto) Neut # (Auto) Lymph # (Auto) White # (Auto) Eos # (Auto) Baso # (Auto) Absolute Nucleated RBC Nucleated RBC % (auto) ESR PT INR Sodium Potassium Chloride Carbon Dioxide Anion Gap BUN Creatinine Est Cr Clr Drug Dosing Est GFR ( Amer) Est GFR (Non-Af Amer) BUN/Creatinine Ratio Glucose POC Glucose 110 H Estimat Average Glucose Hemoglobin A1c Calcium Magnesium Iron Transferrin Transferrin % Sat Ferritin Total Bilirubin Direct Bilirubin AST ALT Alkaline Phosphatase C-Reactive Protein NT-Pro-B Natriuret Pep Total Protein Albumin Globulin Albumin/Globulin Ratio Vitamin B12 Folate Procalcitonin Urine Color Urine Appearance Urine pH Ur Specific [place] Urine Protein Urine Glucose (UA) Urine Ketones Urine Blood Urine Nitrite Urine Bilirubin Urine Urobilinogen Ur Leukocyte Esterase Urine WBC (Auto) Urine RBC (Auto) U Hyaline Cast (Auto) U Epithel Cells (Auto) Urine Bacteria (Auto) Nasal Screen MRSA (PCR) Negative Stool Occult Bld Scrn Rheumatoid Factor ANJUM Screen Anti-Proteinase 3 Anti-Myeloperoxidase ANCA Glomerular Base Memb Ab Influenza Type A (PCR) Neg for Influ A Influenza Type B (PCR) Neg for Influ B L.pneumophila IgM Ab Mycoplasma pneumon IgM Blood Type Antibody Screen 07/10/19 07/10/19 07/10/19 03:52 06:19 06:19 WBC RBC Hgb Hct MCV MCH MCHC RDW Std Deviation RDW Coeff of [place] Plt Count MPV Immature Gran % (Auto) Neut % (Auto) Lymph % (Auto) White % (Auto) Eos % (Auto) Baso % (Auto) Immature Gran # (Auto) Neut # (Auto) Lymph # (Auto) White # (Auto) Eos # (Auto) Baso # (Auto) Absolute Nucleated RBC Nucleated RBC % (auto) ESR PT INR Sodium Potassium Chloride Carbon Dioxide Anion Gap BUN Creatinine Est Cr Clr Drug Dosing Est GFR ( Amer) Est GFR (Non-Af Amer) BUN/Creatinine Ratio Glucose POC Glucose Estimat Average Glucose 108 Hemoglobin A1c 5.4 Calcium Magnesium Iron Transferrin Transferrin % Sat Ferritin Total Bilirubin Direct Bilirubin AST ALT Alkaline Phosphatase C-Reactive Protein NT-Pro-B Natriuret Pep Total Protein Albumin Globulin Albumin/Globulin Ratio Vitamin B12 1627 H Folate 13.93 Procalcitonin Urine Color Urine Appearance Urine pH Ur Specific [place] Urine Protein Urine Glucose (UA) Urine Ketones Urine Blood Urine Nitrite Urine Bilirubin Urine Urobilinogen Ur Leukocyte Esterase Urine WBC (Auto) Urine RBC (Auto) U Hyaline Cast (Auto) U Epithel Cells (Auto) Urine Bacteria (Auto) Nasal Screen MRSA (PCR) Stool Occult Bld Scrn Negative Rheumatoid Factor ANJUM Screen Anti-Proteinase 3 Anti-Myeloperoxidase ANCA Glomerular Base Memb Ab Influenza Type A (PCR) Influenza Type B (PCR) L.pneumophila IgM Ab Mycoplasma pneumon IgM Blood Type Antibody Screen 07/10/19 07/10/19 07/10/19 06:19 06:19 06:19 WBC 10.88 H RBC 3.02 L Hgb 8.2 L Hct 26.7 L MCV 88.4 MCH 27.2 MCHC 30.7 L RDW Std Deviation 50.8 H RDW Coeff of [place] 15.9 H Plt Count 318 MPV 9.4 Immature Gran % (Auto) Neut % (Auto) Lymph % (Auto) White % (Auto) Eos % (Auto) Baso % (Auto) Immature Gran # (Auto) Neut # (Auto) Lymph # (Auto) White # (Auto) Eos # (Auto) Baso # (Auto) Absolute Nucleated RBC Nucleated RBC % (auto) ESR PT 34.2 H INR 3.7 H Sodium 139 Potassium 4.2 Chloride 106 Carbon Dioxide 29 Anion Gap 4.0 BUN 23 H Creatinine 0.95 Est Cr Clr Drug Dosing 73.6 Est GFR ( Amer) 76.5 Est GFR (Non-Af Amer) 66.0 BUN/Creatinine Ratio 24.2 H Glucose 103 H POC Glucose Estimat Average Glucose Hemoglobin A1c Calcium 8.5 Magnesium Iron 37 Transferrin 264 Transferrin % Sat 10 L Ferritin 305.2 Total Bilirubin Direct Bilirubin AST ALT Alkaline Phosphatase C-Reactive Protein NT-Pro-B Natriuret Pep Total Protein Albumin Globulin Albumin/Globulin Ratio Vitamin B12 Folate Procalcitonin Urine Color Urine Appearance Urine pH Ur Specific [place] Urine Protein Urine Glucose (UA) Urine Ketones Urine Blood Urine Nitrite Urine Bilirubin Urine Urobilinogen Ur Leukocyte Esterase Urine WBC (Auto) Urine RBC (Auto) U Hyaline Cast (Auto) U Epithel Cells (Auto) Urine Bacteria (Auto) Nasal Screen MRSA (PCR) Stool Occult Bld Scrn Rheumatoid Factor ANJUM Screen Anti-Proteinase 3 Anti-Myeloperoxidase ANCA Glomerular Base Memb Ab Influenza Type A (PCR) Influenza Type B (PCR) L.pneumophila IgM Ab Mycoplasma pneumon IgM Blood Type Antibody Screen 07/10/19 07:33 WBC RBC Hgb Hct MCV MCH MCHC RDW Std Deviation RDW Coeff of [place] Plt Count MPV Immature Gran % (Auto) Neut % (Auto) Lymph % (Auto) White % (Auto) Eos % (Auto) Baso % (Auto) Immature Gran # (Auto) Neut # (Auto) Lymph # (Auto) White # (Auto) Eos # (Auto) Baso # (Auto) Absolute Nucleated RBC Nucleated RBC % (auto) ESR PT INR Sodium Potassium Chloride Carbon Dioxide Anion Gap BUN Creatinine Est Cr Clr Drug Dosing Est GFR ( Amer) Est GFR (Non-Af Amer) BUN/Creatinine Ratio Glucose POC Glucose 102 H Estimat Average Glucose Hemoglobin A1c Calcium Magnesium Iron Transferrin Transferrin % Sat Ferritin Total Bilirubin Direct Bilirubin AST ALT Alkaline Phosphatase C-Reactive Protein NT-Pro-B Natriuret Pep Total Protein Albumin Globulin Albumin/Globulin Ratio Vitamin B12 Folate Procalcitonin Urine Color Urine Appearance Urine pH Ur Specific [place] Urine Protein Urine Glucose (UA) Urine Ketones Urine Blood Urine Nitrite Urine Bilirubin Urine Urobilinogen Ur Leukocyte Esterase Urine WBC (Auto) Urine RBC (Auto) U Hyaline Cast (Auto) U Epithel Cells (Auto) Urine Bacteria (Auto) Nasal Screen MRSA (PCR) Stool Occult Bld Scrn Rheumatoid Factor ANJUM Screen Anti-Proteinase 3 Anti-Myeloperoxidase ANCA Glomerular Base Memb Ab Influenza Type A (PCR) Influenza Type B (PCR) L.pneumophila IgM Ab Mycoplasma pneumon IgM Blood Type Antibody Screen Medications Administered Laboratory Results - last 24 hr 07/09/19 07/09/19 07/09/19 09:40 09:40 09:40 WBC 13.05 H RBC 3.03 L Hgb 8.5 L Hct 27.0 L MCV 89.1 MCH 28.1 MCHC 31.5 L RDW Std Deviation 50.7 H RDW Coeff of [place] 15.7 H Plt Count 338 MPV 9.9 Immature Gran % (Auto) 0.8 Neut % (Auto) 65.3 Lymph % (Auto) 12.0 White % (Auto) 8.6 Eos % (Auto) 12.2 Baso % (Auto) 1.1 Immature Gran # (Auto) 0.11 H Neut # (Auto) 8.53 H Lymph # (Auto) 1.56 White # (Auto) 1.12 H Eos # (Auto) 1.59 H Baso # (Auto) 0.14 Absolute Nucleated RBC 0.02 H Nucleated RBC % (auto) 0.2 ESR PT 58.6 H INR 6.5 H* Sodium 138 Potassium 4.3 Chloride 107 Carbon Dioxide 26 Anion Gap 5.0 BUN 26 H Creatinine 1.11 Est Cr Clr Drug Dosing 63.2 Est GFR ( Amer) 63.4 Est GFR (Non-Af Amer) 54.7 BUN/Creatinine Ratio 23.6 H Glucose 103 H POC Glucose Estimat Average Glucose Hemoglobin A1c Calcium 9.1 Magnesium Iron Transferrin Transferrin % Sat Ferritin Total Bilirubin 1.0 Direct Bilirubin 0.2 AST 23 ALT 17 Alkaline Phosphatase 96 C-Reactive Protein NT-Pro-B Natriuret Pep 178 Total Protein 7.3 Albumin 3.3 L Globulin 4.0 Albumin/Globulin Ratio 0.8 L Vitamin B12 Folate Procalcitonin Urine Color Urine Appearance Urine pH Ur Specific [place] Urine Protein Urine Glucose (UA) Urine Ketones Urine Blood Urine Nitrite Urine Bilirubin Urine Urobilinogen Ur Leukocyte Esterase Urine WBC (Auto) Urine RBC (Auto) U Hyaline Cast (Auto) U Epithel Cells (Auto) Urine Bacteria (Auto) Nasal Screen MRSA (PCR) Stool Occult Bld Scrn Rheumatoid Factor ANJUM Screen Anti-Proteinase 3 Anti-Myeloperoxidase ANCA Glomerular Base Memb Ab Influenza Type A (PCR) Influenza Type B (PCR) L.pneumophila IgM Ab Mycoplasma pneumon IgM Blood Type Antibody Screen 07/09/19 07/09/19 07/09/19 15:43 16:10 16:13 WBC RBC Hgb Hct MCV MCH MCHC RDW Std Deviation RDW Coeff of [place] Plt Count MPV Immature Gran % (Auto) Neut % (Auto) Lymph % (Auto) White % (Auto) Eos % (Auto) Baso % (Auto) Immature Gran # (Auto) Neut # (Auto) Lymph # (Auto) White # (Auto) Eos # (Auto) Baso # (Auto) Absolute Nucleated RBC Nucleated RBC % (auto) ESR PT INR Sodium Potassium Chloride Carbon Dioxide Anion Gap BUN Creatinine Est Cr Clr Drug Dosing Est GFR ( Amer) Est GFR (Non-Af Amer) BUN/Creatinine Ratio Glucose POC Glucose 99 Estimat Average Glucose Hemoglobin A1c Calcium Magnesium 1.9 Iron Transferrin Transferrin % Sat Ferritin Total Bilirubin Direct Bilirubin AST ALT Alkaline Phosphatase C-Reactive Protein 3.07 H NT-Pro-B Natriuret Pep Total Protein Albumin Globulin Albumin/Globulin Ratio Vitamin B12 Folate Procalcitonin Urine Color Yellow Urine Appearance Clear Urine pH 6.0 Ur Specific [place] 1.015 Urine Protein Negative Urine Glucose (UA) Negative Urine Ketones Negative Urine Blood 2+ H Urine Nitrite Negative Urine Bilirubin Negative Urine Urobilinogen Negative Ur Leukocyte Esterase Negative Urine WBC (Auto) 0 Urine RBC (Auto) 10-30 H U Hyaline Cast (Auto) 0 U Epithel Cells (Auto) 20-30 H Urine Bacteria (Auto) Negative Nasal Screen MRSA (PCR) Stool Occult Bld Scrn Rheumatoid Factor ANJUM Screen Anti-Proteinase 3 Anti-Myeloperoxidase ANCA Glomerular Base Memb Ab Influenza Type A (PCR) Influenza Type B (PCR) L.pneumophila IgM Ab Mycoplasma pneumon IgM Blood Type Antibody Screen 07/09/19 07/09/19 07/09/19 16:13 16:13 16:13 WBC RBC Hgb Hct MCV MCH MCHC RDW Std Deviation RDW Coeff of [place] Plt Count MPV Immature Gran % (Auto) Neut % (Auto) Lymph % (Auto) White % (Auto) Eos % (Auto) Baso % (Auto) Immature Gran # (Auto) Neut # (Auto) Lymph # (Auto) White # (Auto) Eos # (Auto) Baso # (Auto) Absolute Nucleated RBC Nucleated RBC % (auto) ESR 45 H PT INR Sodium Potassium Chloride Carbon Dioxide Anion Gap BUN Creatinine Est Cr Clr Drug Dosing Est GFR ( Amer) Est GFR (Non-Af Amer) BUN/Creatinine Ratio Glucose POC Glucose Estimat Average Glucose Hemoglobin A1c Calcium Magnesium Iron Transferrin Transferrin % Sat Ferritin Total Bilirubin Direct Bilirubin AST ALT Alkaline Phosphatase C-Reactive Protein NT-Pro-B Natriuret Pep Total Protein Albumin Globulin Albumin/Globulin Ratio Vitamin B12 Folate Procalcitonin < 0.05 Urine Color Urine Appearance Urine pH Ur Specific [place] Urine Protein Urine Glucose (UA) Urine Ketones Urine Blood Urine Nitrite Urine Bilirubin Urine Urobilinogen Ur Leukocyte Esterase Urine WBC (Auto) Urine RBC (Auto) U Hyaline Cast (Auto) U Epithel Cells (Auto) Urine Bacteria (Auto) Nasal Screen MRSA (PCR) Stool Occult Bld Scrn Rheumatoid Factor ANJUM Screen Anti-Proteinase 3 Anti-Myeloperoxidase ANCA Glomerular Base Memb Ab Influenza Type A (PCR) Influenza Type B (PCR) L.pneumophila IgM Ab Pending Mycoplasma pneumon IgM Pending Blood Type Antibody Screen 07/09/19 07/09/19 07/09/19 16:13 16:13 16:13 WBC RBC Hgb Hct MCV MCH MCHC RDW Std Deviation RDW Coeff of [place] Plt Count MPV Immature Gran % (Auto) Neut % (Auto) Lymph % (Auto) White % (Auto) Eos % (Auto) Baso % (Auto) Immature Gran # (Auto) Neut # (Auto) Lymph # (Auto) White # (Auto) Eos # (Auto) Baso # (Auto) Absolute Nucleated RBC Nucleated RBC % (auto) ESR PT INR Sodium Potassium Chloride Carbon Dioxide Anion Gap BUN Creatinine Est Cr Clr Drug Dosing Est GFR ( Amer) Est GFR (Non-Af Amer) BUN/Creatinine Ratio Glucose POC Glucose Estimat Average Glucose Hemoglobin A1c Calcium Magnesium Iron Transferrin Transferrin % Sat Ferritin Total Bilirubin Direct Bilirubin AST ALT Alkaline Phosphatase C-Reactive Protein NT-Pro-B Natriuret Pep Total Protein Albumin Globulin Albumin/Globulin Ratio Vitamin B12 Folate Procalcitonin Urine Color Urine Appearance Urine pH Ur Specific [place] Urine Protein Urine Glucose (UA) Urine Ketones Urine Blood Urine Nitrite Urine Bilirubin Urine Urobilinogen Ur Leukocyte Esterase Urine WBC (Auto) Urine RBC (Auto) U Hyaline Cast (Auto) U Epithel Cells (Auto) Urine Bacteria (Auto) Nasal Screen MRSA (PCR) Stool Occult Bld Scrn Rheumatoid Factor Pending ANJUM Screen Pending Anti-Proteinase 3 Pending Anti-Myeloperoxidase Pending ANCA Pending Glomerular Base Memb Ab Pending Influenza Type A (PCR) Influenza Type B (PCR) L.pneumophila IgM Ab Mycoplasma pneumon IgM Blood Type O Positive Antibody Screen NEGATIVE 07/09/19 07/09/19 07/09/19 20:11 Unknown Unknown WBC RBC Hgb Hct MCV MCH MCHC RDW Std Deviation RDW Coeff of [place] Plt Count MPV Immature Gran % (Auto) Neut % (Auto) Lymph % (Auto) White % (Auto) Eos % (Auto) Baso % (Auto) Immature Gran # (Auto) Neut # (Auto) Lymph # (Auto) White # (Auto) Eos # (Auto) Baso # (Auto) Absolute Nucleated RBC Nucleated RBC % (auto) ESR PT INR Sodium Potassium Chloride Carbon Dioxide Anion Gap BUN Creatinine Est Cr Clr Drug Dosing Est GFR ( Amer) Est GFR (Non-Af Amer) BUN/Creatinine Ratio Glucose POC Glucose 110 H Estimat Average Glucose Hemoglobin A1c Calcium Magnesium Iron Transferrin Transferrin % Sat Ferritin Total Bilirubin Direct Bilirubin AST ALT Alkaline Phosphatase C-Reactive Protein NT-Pro-B Natriuret Pep Total Protein Albumin Globulin Albumin/Globulin Ratio Vitamin B12 Folate Procalcitonin Urine Color Urine Appearance Urine pH Ur Specific [place] Urine Protein Urine Glucose (UA) Urine Ketones Urine Blood Urine Nitrite Urine Bilirubin Urine Urobilinogen Ur Leukocyte Esterase Urine WBC (Auto) Urine RBC (Auto) U Hyaline Cast (Auto) U Epithel Cells (Auto) Urine Bacteria (Auto) Nasal Screen MRSA (PCR) Negative Stool Occult Bld Scrn Rheumatoid Factor ANJUM Screen Anti-Proteinase 3 Anti-Myeloperoxidase ANCA Glomerular Base Memb Ab Influenza Type A (PCR) Neg for Influ A Influenza Type B (PCR) Neg for Influ B L.pneumophila IgM Ab Mycoplasma pneumon IgM Blood Type Antibody Screen 07/10/19 07/10/19 07/10/19 03:52 06:19 06:19 WBC RBC Hgb Hct MCV MCH MCHC RDW Std Deviation RDW Coeff of [place] Plt Count MPV Immature Gran % (Auto) Neut % (Auto) Lymph % (Auto) White % (Auto) Eos % (Auto) Baso % (Auto) Immature Gran # (Auto) Neut # (Auto) Lymph # (Auto) White # (Auto) Eos # (Auto) Baso # (Auto) Absolute Nucleated RBC Nucleated RBC % (auto) ESR PT INR Sodium Potassium Chloride Carbon Dioxide Anion Gap BUN Creatinine Est Cr Clr Drug Dosing Est GFR ( Amer) Est GFR (Non-Af Amer) BUN/Creatinine Ratio Glucose POC Glucose Estimat Average Glucose 108 Hemoglobin A1c 5.4 Calcium Magnesium Iron Transferrin Transferrin % Sat Ferritin Total Bilirubin Direct Bilirubin AST ALT Alkaline Phosphatase C-Reactive Protein NT-Pro-B Natriuret Pep Total Protein Albumin Globulin Albumin/Globulin Ratio Vitamin B12 1627 H Folate 13.93 Procalcitonin Urine Color Urine Appearance Urine pH Ur Specific [place] Urine Protein Urine Glucose (UA) Urine Ketones Urine Blood Urine Nitrite Urine Bilirubin Urine Urobilinogen Ur Leukocyte Esterase Urine WBC (Auto) Urine RBC (Auto) U Hyaline Cast (Auto) U Epithel Cells (Auto) Urine Bacteria (Auto) Nasal Screen MRSA (PCR) Stool Occult Bld Scrn Negative Rheumatoid Factor ANJUM Screen Anti-Proteinase 3 Anti-Myeloperoxidase ANCA Glomerular Base Memb Ab Influenza Type A (PCR) Influenza Type B (PCR) L.pneumophila IgM Ab Mycoplasma pneumon IgM Blood Type Antibody Screen 07/10/19 07/10/19 07/10/19 06:19 06:19 06:19 WBC 10.88 H RBC 3.02 L Hgb 8.2 L Hct 26.7 L MCV 88.4 MCH 27.2 MCHC 30.7 L RDW Std Deviation 50.8 H RDW Coeff of [place] 15.9 H Plt Count 318 MPV 9.4 Immature Gran % (Auto) Neut % (Auto) Lymph % (Auto) White % (Auto) Eos % (Auto) Baso % (Auto) Immature Gran # (Auto) Neut # (Auto) Lymph # (Auto) White # (Auto) Eos # (Auto) Baso # (Auto) Absolute Nucleated RBC Nucleated RBC % (auto) ESR PT 34.2 H INR 3.7 H Sodium 139 Potassium 4.2 Chloride 106 Carbon Dioxide 29 Anion Gap 4.0 BUN 23 H Creatinine 0.95 Est Cr Clr Drug Dosing 73.6 Est GFR ( Amer) 76.5 Est GFR (Non-Af Amer) 66.0 BUN/Creatinine Ratio 24.2 H Glucose 103 H POC Glucose Estimat Average Glucose Hemoglobin A1c Calcium 8.5 Magnesium Iron 37 Transferrin 264 Transferrin % Sat 10 L Ferritin 305.2 Total Bilirubin Direct Bilirubin AST ALT Alkaline Phosphatase C-Reactive Protein NT-Pro-B Natriuret Pep Total Protein Albumin Globulin Albumin/Globulin Ratio Vitamin B12 Folate Procalcitonin Urine Color Urine Appearance Urine pH Ur Specific [place] Urine Protein Urine Glucose (UA) Urine Ketones Urine Blood Urine Nitrite Urine Bilirubin Urine Urobilinogen Ur Leukocyte Esterase Urine WBC (Auto) Urine RBC (Auto) U Hyaline Cast (Auto) U Epithel Cells (Auto) Urine Bacteria (Auto) Nasal Screen MRSA (PCR) Stool Occult Bld Scrn Rheumatoid Factor ANJUM Screen Anti-Proteinase 3 Anti-Myeloperoxidase ANCA Glomerular Base Memb Ab Influenza Type A (PCR) Influenza Type B (PCR) L.pneumophila IgM Ab Mycoplasma pneumon IgM Blood Type Antibody Screen 07/10/19 07:33 WBC RBC Hgb Hct MCV MCH MCHC RDW Std Deviation RDW Coeff of Praveena Plt Count MPV Immature Gran % (Auto) Neut % (Auto) Lymph % (Auto) White % (Auto) Eos % (Auto) Baso % (Auto) Immature Gran # (Auto) Neut # (Auto) Lymph # (Auto) White # (Auto) Eos # (Auto) Baso # (Auto) Absolute Nucleated RBC Nucleated RBC % (auto) ESR PT INR Sodium Potassium Chloride Carbon Dioxide Anion Gap BUN Creatinine Est Cr Clr Drug Dosing Est GFR ( Amer) Est GFR (Non-Af Amer) BUN/Creatinine Ratio Glucose POC Glucose 102 H Estimat Average Glucose Hemoglobin A1c Calcium Magnesium Iron Transferrin Transferrin % Sat Ferritin Total Bilirubin Direct Bilirubin AST ALT Alkaline Phosphatase C-Reactive Protein NT-Pro-B Natriuret Pep Total Protein Albumin Globulin Albumin/Globulin Ratio Vitamin B12 Folate Procalcitonin Urine Color Urine Appearance Urine pH Ur Specific [place] Urine Protein Urine Glucose (UA) Urine Ketones Urine Blood Urine Nitrite Urine Bilirubin Urine Urobilinogen Ur Leukocyte Esterase Urine WBC (Auto) Urine RBC (Auto) U Hyaline Cast (Auto) U Epithel Cells (Auto) Urine Bacteria (Auto) Nasal Screen MRSA (PCR) Stool Occult Bld Scrn Rheumatoid Factor ANJUM Screen Anti-Proteinase 3 Anti-Myeloperoxidase ANCA Glomerular Base Memb Ab Influenza Type A (PCR) Influenza Type B (PCR) L.pneumophila IgM Ab Mycoplasma pneumon IgM Blood Type Antibody Screen Current Inpatient Medications Acetaminophen (Tylenol) 650 mg PO Q4H PRN PRN Reason: Pain or Fever Stop: 08/08/19 12:44 Albuterol (Ventolin Hfa) 2 puffs INH Q6H PRN PRN Reason: Shortness Of Breath Or Wheezin Allopurinol (Zyloprim) 300 mg PO HS JENELLE Stop: 08/08/19 20:59 Last Admin: 07/09/19 20:25 Dose: 300 mg Documented by: Carvedilol (Coreg) 12.5 mg PO BID JENELLE Stop: 08/08/19 20:59 Last Admin: 07/10/19 08:26 Dose: 12.5 mg Documented by: Dextrose (Dextrose 50%) 25 - 50 ml IV UD PRN; Protocol PRN Reason: Hypoglycemia Protocol Stop: 08/08/19 14:44 Glucagon (Glucagen) 1 mg IM UD PRN; Protocol PRN Reason: Hypoglycemia Protocol Stop: 08/08/19 14:44 Glucose (Glucose 40%) 15 - 30 gm PO UD PRN; Protocol PRN Reason: Hypoglycemia Protocol Stop: 08/08/19 14:44 Glucose (Dex4 Glucose) 4 - 8 tabs PO UD PRN; Protocol PRN Reason: Hypoglycemia Protocol Stop: 08/08/19 14:44 Insulin Aspart (Novolog Flexpen) 0 units SC ACHS JENELLE Stop: 08/08/19 16:29 Last Admin: 07/10/19 08:21 Dose: 3 units Documented by: Insulin Glargine (Lantus Solostar Pen) 0 - 15 units SC BID [facility]; Protocol Stop: 08/08/19 20:59 Last Admin: 07/10/19 08:21 Dose: Not Given Documented by: Levothyroxine Sodium (Synthroid) 175 mcg PO Th@0630 [facility] Stop: 08/12/19 06:29 Levothyroxine Sodium (Synthroid) 200 mcg PO SuMoTuWeFrSa@0630 [facility] Stop: 08/08/19 13:29 Last Admin: 07/10/19 06:30 Dose: 200 mcg Documented by: Lisinopril (Zestril) 40 mg PO DAILY [facility] Stop: 08/09/19 08:59 Last Admin: 07/10/19 08:27 Dose: 40 mg Documented by: Magnesium Oxide (Mag-Ox) 400 mg PO TID [facility] Stop: 08/08/19 13:59 Last Admin: 07/10/19 08:27 Dose: 400 mg Documented by: Miscellaneous (Carbohydrates For Hypoglycemia) 15 - 30 gm PO UD PRN PRN Reason: Hypoglycemia Treatment Stop: 08/08/19 14:44 Montelukast Sodium (Singulair) 10 mg PO QAM [facility] Stop: 08/09/19 08:59 Last Admin: 07/10/19 08:27 Dose: 10 mg Documented by:
--- NOTE | 2019-07-10 15:10 | Hospitalist Progress Note ---
Date of Service July 10, 2019 Assessment & Plan (1) Hypoxia: Presented on admission with worsening SOB with O2 saturation as low as 87% on RA. CT chest showed extensive bilateral airspace opacities within the lungs. CXR showed no significant change in bilateral central predominant pulmonary infiltrates, right greater than left. ProBNP and procalcitonin, Influenza PCR negative ECHO done showed no wall motion abnormality. EF 55 to 60 % Cardiology on board does not think that this is cardiac related Continue oxygen supplement (2) Abnormal chest xray: Chest x-ray suggests pulmonary edema +/- bilat infiltrates. No sign of fluid overload Elevated ESR and C-reactive Inflammatory marker pending (ANCA, RF..) Will hold on any additional course of abx since pt completed 2 course of abx recently Pulmonary on board Plan to bronch once INR below 1.5-1.7 (3) Hemoptysis: On Coumadin with INR on admission above 6 No Vit K given due to her history of mechanical valve Clinically improves significantly (4) Anemia: Hgb on 07/02 was 10 Hgb on admission 8.5, slightly dropped to 8.2 today Negative FOBT Continue monitor H/H, will transfuse if Hgb drops below 8 Continue to hold heparin (5) Atrial fibrillation: Rate control Continue carvedilol and warfarin. Coumadin on hold due to elevated INR and hemmoptysis Will monitor INR (6) History of mitral valve replacement with mechanical valve: S/P MVR 18 years ago with mechanical valve. Coumadin on hold for now, INR 3.7 today Will start on heparin drip if INR drops below 3 Monitor PT/INR (7) Diabetes mellitus type 2, controlled: Hba1c 5.4 Metformin on hold during hospital stay Continue Lantus and insulin sliding scale Monitor BS (8) Hypothyroidism: Continue current dose of levothyroxine. TSH normal (9) Gout: No recent flares. Continue allopurinol. (10) Vitamin B12 deficiency: B12 elevated On B12 supplement (11) DVT prophylaxis: Coumadin on hold due to INR supratherapeutic INR goal 2.5 - 3.5. (12) Discharge planning issues: Primary care follow-up with Dr. To. Cardiology follow-up with Dr. Gallardo. Subjective Pt was seen and examined. Lying in bed with no distress Pt said that her cough seems to improves because she has not coughed any blood She said that she does have SOB with little exertion Denies any chest pain, palpitation, dizziness and fever Physical Exam Physical Exam: General- No acute distress Head- atraumatic Eyes- PERRL, EOMI, ENT- oropharynx clear Neck- supple, no JVD Lungs- clear to auscultation Heart- regular rhythm; +murmur Abdomen- normal bowel sounds, soft, nontender Extremities- no calf tenderness Neuro- alert, oriented x 3; PERRL, EOMI; no facial palsy; no dysarthria Skin- warm & dry Results & Data Vital Signs (Past 12 Hours) Vital Signs Temp Pulse Pulse Resp BP Pulse Ox 07/10/19 11:35 36.8 C 66 18 102/58 L 90 07/10/19 07:35 62 07/10/19 07:15 36.4 C L 67 16 115/68 93 07/10/19 03:00 36.8 C 81 18 112/68 90
[2019-07-10] MEDS: allopurinoL 300 MG TAB PO SCH (20:01)
[2019-07-11] MEDS: LEVOTHYROXINE SODIUM 200 MCG TABLET PO SCH (06:20)
[2019-07-11] MEDS: INSULIN GLARGINE SOLOSTAR 100 UNITS/ML 3 ML PEN SC SCH ×2 (07:39→20:10)
[2019-07-11] MEDS: INSULIN ASPART 100 UNITS/ML 3 ML PEN SC SCH ×4 (07:39→20:11)
[2019-07-11] MEDS: carvediloL 12.5 MG TAB PO SCH ×2 (08:22→21:03)
[2019-07-11] MEDS: MAGNESIUM OXIDE 400 MG TAB PO SCH ×3 (08:22→21:03)
[2019-07-11] MEDS: MONTELUKAST SODIUM 10 MG TABLET PO SCH (08:23)
[2019-07-11] MEDS: lisinopriL 40 MG TAB PO SCH (08:23)
--- NOTE | 2019-07-11 11:10 | Cardiology Progress Note ---
Date of Service July 11, 2019 Assessment & Plan (1) Hemoptysis: (2) Anemia: (3) Diabetes mellitus type 2, controlled: (4) Atrial fibrillation: (5) History of mitral valve replacement with mechanical valve: (6) Pacemaker: (7) Pneumonitis: Echocardiogram results on chart. No additional recommendations at this time except that when her INR is less than 2 then she can be started on IV heparin without a bolus. Bronchoscopy is pending. The patient is currently hemodynamically stable. Subjective The patient had an uneventful night. No additional hemoptysis. Waiting for her bronchoscopy when ever her INR has declined. Review of Systems Review of Systems: All systems reviewed & are unremarkable except as noted in HPI & below Nothing additional to add. Physical Exam Physical Exam: General: no acute distress and stated age Head: normocephalic, no masses, lesions, tenderness or abnormalities Eyes: conjunctiva are pink and non-injected, sclera clear Neck: supple, no adenopathy, no bruits, normal jugular venous pulse, no hepatojugular reflux Chest: normal shape and normal respiratory effort Lungs: clear to auscultation and percussion Cardiac Exam: - regular rate & rhythm, no murmurs gallops or rubs -mechanical S1, normal S2 Pulses: 2(+) throughout Abdomen: abdomen soft, non-tender, no abnormal masses and no hepatosplenomegaly Musculoskeletal: no gait disturbance, no joint inflammation, no deforming arthritis Extremities: no edema and no cyanosis Neuro: grossly normal exam Results & Data Vital Signs (Past 12 Hours) Vital Signs Temp Pulse Pulse Resp BP Pulse Ox 07/11/19 08:21 84 116/73 07/11/19 07:15 68 07/11/19 07:02 36.5 C 61 18 99/60 L 92 07/11/19 04:24 36.6 C 69 22 146/81 H 90 07/11/19 00:02 36.5 C 65 20 105/65 92 Laboratory Results Laboratory Results - last 24 hr 07/10/19 07/10/19 07/10/19 11:33 16:14 20:31 PT INR POC Glucose 85 109 H 115 H 07/11/19 07/11/19 06:34 06:40 PT Pending INR Pending POC Glucose 107 H Medications Administered Current Inpatient Medications Acetaminophen (Tylenol) 650 mg PO Q4H PRN PRN Reason: Pain or Fever Stop: 08/08/19 12:44 Albuterol (Ventolin Hfa) 2 puffs INH Q6H PRN PRN Reason: Shortness Of Breath Or Wheezin Allopurinol (Zyloprim) 300 mg PO HS [facility] Stop: 08/08/19 20:59 Last Admin: 07/10/19 20:01 Dose: 300 mg Documented by: Carvedilol (Coreg) 12.5 mg PO BID [facility] Stop: 08/08/19 20:59 Last Admin: 07/11/19 08:22 Dose: 12.5 mg Documented by: Dextrose (Dextrose 50%) 25 - 50 ml IV UD PRN; Protocol PRN Reason: Hypoglycemia Protocol Stop: 08/08/19 14:44 Glucagon (Glucagen) 1 mg IM UD PRN; Protocol PRN Reason: Hypoglycemia Protocol Stop: 08/08/19 14:44 Glucose (Glucose 40%) 15 - 30 gm PO UD PRN; Protocol PRN Reason: Hypoglycemia Protocol Stop: 08/08/19 14:44 Glucose (Dex4 Glucose) 4 - 8 tabs PO UD PRN; Protocol PRN Reason: Hypoglycemia Protocol Stop: 08/08/19 14:44 Insulin Aspart (Novolog Flexpen) 0 units SC ACHS [facility] Stop: 08/08/19 16:29 Last Admin: 07/11/19 07:39 Dose: Not Given Documented by: Insulin Glargine (Lantus Solostar Pen) 0 - 15 units SC BID [facility]; Protocol Stop: 08/08/19 20:59 Last Admin: 07/11/19 07:39 Dose: Not Given Documented by: Levothyroxine Sodium (Synthroid) 175 mcg PO Th@0630 [facility] Stop: 08/12/19 06:29 Levothyroxine Sodium (Synthroid) 200 mcg PO [id number]@0630 [facility] Stop: 08/08/19 13:29 Last Admin: 07/11/19 06:20 Dose: 200 mcg Documented by: Lisinopril (Zestril) 40 mg PO DAILY [facility] Stop: 08/09/19 08:59 Last Admin: 07/11/19 08:23 Dose: 40 mg Documented by: Magnesium Oxide (Mag-Ox) 400 mg PO TID [facility] Stop: 08/08/19 13:59 Last Admin: 07/11/19 08:22 Dose: 400 mg Documented by: Miscellaneous (Carbohydrates For Hypoglycemia) 15 - 30 gm PO UD PRN PRN Reason: Hypoglycemia Treatment Stop: 08/08/19 14:44 Montelukast Sodium ([facility]ulair) [facility] [place] Stop: 08/09/19 08:59 Last Admin: 07/11/19 08:23 Dose: 10 mg Documented by: (1) Anemia Anemia type: unspecified type Qualified Code(s): D64.9 - Anemia, unspecified
[2019-07-11 11:44] LABS: INR 1.8 (0.9-1.1); Prothrombin Time 17.5 Seconds (9.0-12.0)
[2019-07-11] MEDS ORDERED: HEPARIN SODIUM/DEXTROSE 25,000 UNITS/500 ML BAG IV SCH (12:15)
[2019-07-11 12:39] LABS: Partial Thromboplastin Ratio 1.6; Partial Thromboplastin Time 42.6 Seconds (21.0-31.0)
[2019-07-11 13:04] LABS: Basophils # (auto) 0.14 K/uL (0-0.2); Basophils % (auto) 1.2 %; Eosinophils # (auto) 1.52 K/uL (0-0.5); Eosinophils % (auto) 12.7 %; Hematocrit (blood only) 25.7 % (37-47); Hemoglobin 8.1 g/dL (12.0-16.0); Immature Granulocytes # (auto) 0.11 K/uL (0.00-0.02); Immature Granulocytes % (auto) 0.9 %; Lymphocytes % (auto) 14.2 %; Mean Corpuscular Volume 88.9 fL (80-100); Mean Platelet Volume 10.5 fL (7.4-10.4); Monocytes # (auto) 1.03 K/uL (0.11-0.59); Monocytes % (auto) 8.6 %; Neutrophils # (auto) 7.43 K/uL (1.4-6.5); Neutrophils % (auto) 62.4 %; Nucleated RBC # (auto) 0.02 K/uL (0-0); Nucleated RBC % (auto) 0.1 %; Platelet Count 354 K/uL (130-400); RDW Coefficient of Variation 15.9 % (11.5-14.5); RDW Standard Deviation 51.1 fL (36.4-46.3); Red Blood Count 2.89 M/uL (4.2-5.4); White Blood Count 11.93 K/uL (4.8-10.8)
[2019-07-11 13:06] LABS: Mean Corpuscular Hgb Conc 31.5 g/dL (32-36)
[2019-07-11] MEDS: Heparin IV Standard *NO* Bolus IV SCH (13:12)
[2019-07-11] MEDS ORDERED: Heparin Adult STANDARD Wt-Based Dextrose 5% 25,000 units/500 mL IV SCH (13:15)
--- NOTE | 2019-07-11 15:32 | Pulmonology Progress Note ---
Date of Service July 11, 2019 Assessment & Plan (1) Acute hypoxemic respiratory failure: Elevated ESR and CRP suggestive of possible inflammatory process Hypoxia could be secondary to significant hemoptysis Now on room air with no significant hemoptysis Patient completed 2 courses of antibiotics. Procalcitonin is negative Echocardiogram completed yesterday and shows ejection fraction 55 to 60%. There is no evidence of pulmonary hypertension. Significant mitral regurg is absent. No significant aortic stenosis or regurgitation Patient tolerating use of home CPAP: 13 cm/H2O Influenza type A and type B are negative Other serologies pending Immunology studies including RF, ANJUM, anti-proteinase, ANCA, GBM, anti- myeloperoxidase are pending (2) Hemoptysis: Unclear etiology Anticipated bronchoscopy to evaluate for alveolar hemorrhage Supratherapeutic on warfarin with elevated INR * INR now 1.8 * Check repeat INR in the morning As INR is improved patient now only has blood-streaked sputum occasionally Will discuss utility of bronchoscopy with Dr. Mckee Thank you for including us in the care of this patient. We will continue to follow along with you. Please refer to Dr. Mckee's addendum for further recommendations. Supervising Physician Co-Signing Physician Notes Anupam Duran PA-C. I agree with his assessment and plan except for any additions or exceptions that I have noted: Will go ahead and perform a bronchoscopy with sequential aliquots tomorrow. We will send the BAL fluid for cultures as well. Likely her presentation is con sistent with a bland diffuse alveolar hemorrhage related to her recent pneumonia and an elevated INR. Hold her heparin starting at 4 AM tomorrow. Continue to hold her Coumadin. N.p.o. after midnight. Autoimmune studies are pending. ESR and CRP are elevated but are very nonspecific. Subjective Attending: Dr. Mckee Is a 58-year-old female admitted for hypoxemic respiratory failure and hemoptysis. She has mitral valve replacement and is on warfarin with elevated INR. She describes hemoptysis as being severe over the first several days with large clots every time she coughed. INR is now 1.8 and patient reports that she just has some minimal streaking in her sputum. She denies any chest pain or tightness. She has no pleuritic type pain. She has no hypoxia. She has no other acute complaints. Review of Systems Review of Systems: All systems reviewed & are unremarkable except as noted in HPI & below Physical Exam Physical Exam: GENERAL : No acute distress EYES: No icterus, gaze conjugate NOSE: No evidence of epistaxis MOUTH: No lesions or candidiasis NECK: Supple LUNGS: CTA B/L, no wheezes, rales or rhonchi HEART: Regular, rate controlled ABDOMEN: Soft, NT, ND, BS Present EXTREMITIES: No LE edema, pedal pulses intact NEURO: A&OX3 Results & Data Vital Signs (Past 12 Hours) Vital Signs Temp Pulse Pulse Resp BP Pulse Ox 07/11/19 11:15 36.5 C 70 18 104/66 93 07/11/19 08:21 84 116/73 07/11/19 07:15 68 07/11/19 07:02 36.5 C 61 18 99/60 L 92 07/11/19 04:24 36.6 C 69 22 146/81 H 90 Laboratory Results 07/11/19 06:45 07/10/19 06:19 Laboratory Tests 07/09/19 07/10/19 07/11/19 09:40 06:19 06:40 INR 6.5 H* 3.7 H 1.8 H Diagnostic Findings XR chest 1V portable CLINICAL HISTORY: 58 years-old Female presenting with hypoxia. TECHNIQUE: Portable upright AP view of the chest was obtained. COMPARISON: 07/09/2019. FINDINGS: Right subclavian pacer with single lead to the right ventricular apex. An epicardial pacing wire is also suggested. Median sternotomy wires remain in place with breakage of several wires. Atherosclerosis of the aortic arch. Cardiac silhouette moderately enlarged. Redemonstration of dense central predominant opacities in the lungs, right greater than left. No large effusion or pneumothorax. Osseous structures normal. Upper abdomen normal. IMPRESSION: 1. No significant change in bilateral central predominant pulmonary infiltrates, right greater than left. This may represent slight asymmetric edema or multifocal pneumonia. 2. Cardiomegaly. Electronically signed by: Brady Meek M.D. 07/10/2019 7:56 AM PG Care Time/CCT Total # of Minutes Spent Total Time Spent with Patient: Total time spent is greater than 50% in coordination of care (as documented) at patient's floor/unit and/or counseling patient:
[2019-07-11] MEDS ORDERED: Nursing to Pharmacy Communication ONE (15:52)
--- NOTE | 2019-07-11 19:24 | Hospitalist Progress Note ---
Date of Service July 11, 2019 Assessment & Plan (1) Hypoxia: Presented on admission with worsening SOB with O2 saturation as low as 87% on RA. CT chest showed extensive bilateral airspace opacities within the lungs. CXR showed no significant change in bilateral central predominant pulmonary infiltrates, right greater than left. ProBNP and procalcitonin, Influenza PCR negative ECHO done showed no wall motion abnormality. EF 55 to 60 % Cardiology on board does not think that this is cardiac related Continue oxygen supplement (2) Abnormal chest xray: Chest x-ray suggests pulmonary edema +/- bilat infiltrates. No sign of fluid overload Elevated ESR and C-reactive Immunology studies including RF, ANJUM, anti-proteinase, ANCA, GBM, anti- myeloperoxidase are pending Will hold on any additional course of abx since pt completed 2 course of abx recently Pulmonary on board Plan to bronch tomorrow if INR below 1.5-1.7 (3) Hemoptysis: On Coumadin with INR on admission above 6 No Vit K given due to her history of mechanical valve Clinically improves significantly Will monitor closely while on heparin drip since INR 1.8 with hx of Afib and mechaniccal valve (4) Anemia: Hgb on 07/02 was 10 Hgb on admission 8.5, slightly dropped to 8.1 today Negative FOBT Continue monitor H/H, will transfuse if Hgb drops below 8 Monitor H/H while on heparin drip (5) Atrial fibrillation: Rate control Continue carvedilol and warfarin. Coumadin on hold due hemoptysis Starting on heparin drip Will hold heparin drip in am for Bronch Check PT/INR (6) History of mitral valve replacement with mechanical valve: S/P MVR 18 years ago with mechanical valve. Coumadin on hold for now, INR 3.7 today Starting on heparin drip since INR 1.8 today Continue to hold coumadin Monitor PT/INR (7) Diabetes mellitus type 2, controlled: Hba1c 5.4 Metformin on hold during hospital stay Continue Lantus and insulin sliding scale Monitor BS (8) Hypothyroidism: Continue current dose of levothyroxine. TSH normal (9) Gout: No recent flares. Continue allopurinol. (10) Vitamin B12 deficiency: B12 elevated On B12 supplement (11) DVT prophylaxis: Coumadin on hold due to INR On Heparin drip (12) Discharge planning issues: Primary care follow-up with Dr. To. Cardiology follow-up with Dr. Gallardo. Subjective Pt was seen and examined Lying in bed with no distress Pt said that her cough improves She said that she feels a little better Denies any chest pain, palpitation, dizziness and SOB Physical Exam Physical Exam: General- No acute distress Head- atraumatic Eyes- PERRL, EOMI, ENT- oropharynx clear Neck- supple, no JVD Lungs- clear to auscultation Heart- regular rhythm; +murmur Abdomen- normal bowel sounds, soft, nontender Extremities- no calf tenderness Neuro- alert, oriented x 3; PERRL, EOMI; no facial palsy; no dysarthria Skin- warm & dry Results & Data Vital Signs (Past 12 Hours) Vital Signs Temp Pulse Pulse Resp BP Pulse Ox 07/11/19 15:42 36.5 C 65 19 93/59 L 94 07/11/19 14:20 69 07/11/19 11:15 36.5 C 70 18 104/66 93 07/11/19 08:21 84 116/73 (1) Anemia Anemia type: unspecified type Qualified Code(s): D64.9 - Anemia, unspecified
--- NOTE | 2019-07-11 20:31 | Communication Note ---
Date of Service: July 11, 2019 Bronchoscopy anticipated Thursday 07/12. Pulmonary Medicine requested that IV heparin be held at 04:00 for the procedure. Order to stop heparin entered. IV heparin should be resumed after bronchoscopy if possible and continued until INR in target range.
[2019-07-11 20:45] LABS: Partial Thromboplastin Ratio 2.2
[2019-07-11 20:53] LABS: Partial Thromboplastin Time 59.8 Seconds (21.0-31.0)
[2019-07-11] MEDS: allopurinoL 300 MG TAB PO SCH (21:05)
[2019-07-12] MEDS: LEVOTHYROXINE SODIUM 200 MCG TABLET PO SCH (05:48)
[2019-07-12] MEDS: OXYMETAZOLINE 0.05% 30 ML BTL NAE SCH (05:48)
[2019-07-12 06:50] LABS: Hematocrit (blood only) 22.1 % (37-47); Hemoglobin 6.8 g/dL (12.0-16.0); Mean Corpuscular Hemoglobin 27.1 pg (25-34); Mean Corpuscular Hgb Conc 30.8 g/dL (32-36); Mean Platelet Volume 9.1 fL (7.4-10.4); Platelet Count 286 K/uL (130-400); RDW Coefficient of Variation 15.9 % (11.5-14.5); RDW Standard Deviation 50.7 fL (36.4-46.3); Red Blood Count 2.51 M/uL (4.2-5.4); White Blood Count 10.14 K/uL (4.8-10.8)
[2019-07-12 06:55] LABS: INR 1.5 (0.9-1.1); Prothrombin Time 15.3 Seconds (9.0-12.0)
[2019-07-12] MEDS ORDERED: SODIUM CHLORIDE 0.9% 250 ML IV PRN (07:10)
[2019-07-12] MEDS: INSULIN ASPART 100 UNITS/ML 3 ML PEN SC SCH ×4 (07:48→21:22)
[2019-07-12] MEDS: INSULIN GLARGINE SOLOSTAR 100 UNITS/ML 3 ML PEN SC SCH ×2 (07:49→21:22)
[2019-07-12 08:01] LABS: BUN Creatinine Ratio 34.4 (10-20); Calcium 8.4 mg/dl (8.5-10.1); Creatinine Clr Calc Pharmacy 73.7 ml/min; Est GFR (African American) 76.5; Potassium 4.3 mmol/L (3.5-5.1)
[2019-07-12 08:03] LABS: Hematocrit (blood only) 23.9 % (37-47); Hemoglobin 7.4 g/dL (12.0-16.0)
[2019-07-12 08:10] LABS: Partial Thromboplastin Ratio 1.3; Partial Thromboplastin Time 35.4 Seconds (21.0-31.0)
--- NOTE | 2019-07-12 08:28 | History & Physical Bridge Note ---
Date of Service July 12, 2019 History & Physical Bridge Note I have examined the patient, reviewed the History & Physical and in the interval since the performance of the History & Physical I have noted the following changes of clinical significance: no changes noted
--- NOTE | 2019-07-12 08:29 | Pre Anesthesia Assessment ---
Date of Service July 12, 2019 Pre Sedation Assessment Vital Signs Temp Pulse Pulse Pulse Resp BP BP 07/12/19 07:37 97.5 F L 60 18 98/61 L 07/12/19 07:15 61 07/12/19 03:07 97.9 F 64 18 98/62 L 07/11/19 23:17 98.2 F 62 18 88/50 L 07/11/19 19:20 98.6 F 73 18 96/58 L 07/11/19 15:42 97.7 F 65 19 93/59 L 07/11/19 14:20 69 07/11/19 11:15 97.7 F 70 18 104/66 Pulse Ox 07/12/19 07:37 95 07/12/19 07:15 07/12/19 03:07 91 07/11/19 23:17 94 07/11/19 19:20 91 07/11/19 15:42 94 07/11/19 14:20 07/11/19 11:15 93 Pre-Sedation Airway Assessment Smoking Status: Former smoker Notes The planned sedation has been discussed with the patient. Informed Consent was obtained. I have identified the patient, determined the appropriateness of sedation and have assessed the patient immediately prior to the procedure. All medicine(s) and interventions are by my order.
[2019-07-12] MEDS: SODIUM CHLORIDE 0.9% 1000ML 500 ML IV ONE ×2 (09:15→14:06)
--- NOTE | 2019-07-12 09:17 | Procedure Note ---
Procedure Note Date of Service July 12, 2019 PREOPERATIVE DIAGNOSIS: Alveolar hemorrhage POSTOPERATIVE DIAGNOSIS: Alveolar hemorrhage PROCEDURE PERFORMED: Flexible fiberoptic bronchoscopy with BAL from the right middle lobe COMPLICATIONS: None. INDICATION: Rule out alveolar hemorrhage and other etiologies. PROCEDURE: After obtaining an informed consent, the patient was brought to the Bronchoscopy Suite. The patient had appropriate oxygen, blood pressure, heart rate, and respiratory rate monitoring applied and monitored continuously throughout the procedure. Supplemental oxygen via nasal cannula as per nursing records was applied to the nasopharynx with adequate saturations achieved. Topical anesthesia with nebulized 1% lidocaine was achieved. Subsequent to this, the patient was premedicated with 3 mg of midazolam and 75 Mcg of fentanyl. The oropharynx and larynx were well visualized and no abnormalities were seen. There was normal vocal cord motion without masses or lesions. Additional topical anesthesia with 1% lidocaine was applied to the trachea and marilu. The trachea appeared normal but there was appearance of bloody secretions throughout the trachea.The bronchoscope was then advanced through the marilu, which was sharp. The scope was then advanced into the right main stem and each segment, subsegem ent in the right upper lobe, right middle lobe and right lower lobe was visualized. There was small amounts of bloody secretions noted. There were no other findings including evidence or anatomic distortion. The bronchoscope was subsequently withdrawn and advanced into the left mainstem. Again, each segment and subsegment was well visualized. No specific masses or other lesions were identified throughout the tracheobronchial tree on the left. There was a small amounts of bloody secretions noted. The bronchoscope was then wedged in the right middle lobe and bronchoalveolar lavage samples were obtained. 120 ml of saline was instilled and 54 ml of fluid was aspirated back.The bronchoscope was withdrawn and the area was suctioned clear. The bronchoscope was then withdrawn. The patient tolerated the procedure well without evidence of desaturation or complications. Bronchoalveolar lavage samples were sent for cell count, Gram stain and bacterial culture, AFB culture and smear, fungal culture and smear, [ and cytology. Recommendations: 4 sequential aliquots were performed of the right middle lobe. There was evidence of worsening bloody secretions aspirated on each aliquot. This is co nsistent with an alveolar hemorrhage. Follow-up serologies to work-up autoimmune causes. I think likely this is just a bland hemorrhage from supratherapeutic INR. Coding CPT Codes Sedation/Anesthesia - Sedation/Anesthesia: Mod Sedation by the same physician;Init15 Min Child Age 5 & Up ([id number]) Sedation/Anesthesia - Sedation/Anesthesia: Mod Sedation by the same physician;Init15 Min Child Age 5 & Up ([id number]) Pulmonary/Thoracic - Pulmonary and Thoracic: Dx bronchoscopy/BAL ([id number])
[2019-07-12] MEDS ORDERED: fentaNYL citrate 100 MCG/2 ML VIAL IV ONE (09:18)
[2019-07-12] MEDS ORDERED: LIDOCAINE HCL VISCOUS SOLN 2% 15 ML UDC TOP ONE (09:18)
[2019-07-12] MEDS ORDERED: LIDOCAINE 4% INH SOLN 4 ML BTL NAE ONE (09:18)
[2019-07-12] MEDS ORDERED: LIDOCAINE HCL 2% (LOCAL) INJ 50 ML VIAL INSTIL ONE (09:18)
[2019-07-12] MEDS ORDERED: OXYMETAZOLINE 0.05% 30 ML BTL ONE (09:18)
[2019-07-12] MEDS ORDERED: MIDAZOLAM HCL 1 MG/ML 2ML VIAL IV ONE (09:21)
--- NOTE | 2019-07-12 09:43 | Post Anesthesia Assessment ---
Date of Service July 12, 2019 Post Sedation Assessment Vital Signs Temp Pulse Pulse Pulse Resp BP BP 07/12/19 09:25 61 22 92/50 L 07/12/19 09:20 61 22 98/52 L 07/12/19 09:15 61 22 101/53 L 07/12/19 09:10 60 22 98/48 L 07/12/19 09:05 60 14 104/60 07/12/19 09:00 60 16 124/60 07/12/19 08:55 62 18 106/46 L 07/12/19 08:50 62 18 122/54 L 07/12/19 08:35 62 18 110/58 L 07/12/19 07:37 97.5 F L 60 18 98/61 L 07/12/19 07:15 61 07/12/19 03:07 97.9 F 64 18 98/62 L 07/11/19 23:17 98.2 F 62 18 88/50 L 07/11/19 19:20 98.6 F 73 18 96/58 L 07/11/19 15:42 97.7 F 65 19 93/59 L 07/11/19 14:20 69 07/11/19 11:15 97.7 F 70 18 104/66 Pulse Ox 07/12/19 09:25 93 07/12/19 09:20 93 07/12/19 09:15 95 07/12/19 09:10 95 07/12/19 09:05 93 07/12/19 09:00 94 07/12/19 08:55 94 07/12/19 08:50 94 07/12/19 08:35 94 07/12/19 07:37 95 07/12/19 07:15 07/12/19 03:07 91 07/11/19 23:17 94 07/11/19 19:20 91 07/11/19 15:42 94 07/11/19 14:20 07/11/19 11:15 93 Recovery Score Activity: Moves 4 extremities Respiration: Deep Breath/Cough Circulation: +/-20% PreAnes Value Consciousness: Fully Awake Oxygen Saturation: O2 needed for >90% Post Anesthesia Score: 9 Post Sedation Plan On clinical assessment, the patient appears to have tolerated the sedation without complications. Patient is recovering as anticipated. Patient will continue to be monitored by nursing and may be discharged when sedation discharge criteria are met per below protocol. Upon Completions of procedure and additional 15 minutes continue every 5 minute vital signs and the P.A.R. score; then discharge to a Phase I or Fast Track to Phase II per the following guidelines: * Discharge Patient to appropriate Phase II area if PAR is 8 or greater or return to pre- procedure baseline. The post - procedure orders will be as directed. * If PAR score is less than 8 or not return to pre-procedure baseline then patient will follow Phase I monitoring till PAR is reached for Phase II. The Phase I may be done in procedure room or may call to secure a Phase I area. * If naloxone or flumazenil are used for reversal, hold in Phase I for continued monitoring from when last reversal dose was given for a minimum of 60 minutes or longer pending the nurse and/or physician discretion of patient condition before discharge to Phase II. Please call the Sedation Physician to re-evaluate and complete post-note for discharge to Phase II area. Do NOT discharge from procedure sedation or Phase 1 until post- sedation evaluation note is complete by procedure /sedation MD Sedation Discharge Instructions to be given to the patient at discharge to home.
--- NOTE | 2019-07-12 10:38 | Cardiology Progress Note ---
Date of Service July 12, 2019 Assessment & Plan (1) Hemoptysis: (2) Anemia: (3) Diabetes mellitus type 2, controlled: (4) Atrial fibrillation: (5) History of mitral valve replacement with mechanical valve: (6) Pacemaker: (7) Pneumonitis: The patient is clinically stable. Lab as well as results of the bronchoscopy are still pending. For now we will continue to hold warfarin. Subjective The patient just had her bronchoscopy completed. She is still lethargic but clinically stable. Review of Systems Review of Systems: All systems reviewed & are unremarkable except as noted in HPI & below Nothing additional to add. Physical Exam Physical Exam: General: no acute distress and stated age Head: normocephalic, no masses, lesions, tenderness or abnormalities Eyes: conjunctiva are pink and non-injected, sclera clear Neck: supple, no adenopathy, no bruits, normal jugular venous pulse, no hepatojugular reflux Chest: normal shape and normal respiratory effort Lungs: clear to auscultation and percussion Cardiac Exam: - regular rate & rhythm, no murmurs gallops or rubs -mechanical S1, normal S2 Pulses: 2(+) throughout Abdomen: abdomen soft, non-tender, no abnormal masses and no hepatosplenomegaly Musculoskeletal: no gait disturbance, no joint inflammation, no deforming arthritis Extremities: no edema and no cyanosis Neuro: grossly normal exam Results & Data Vital Signs (Past 12 Hours) Vital Signs Temp Pulse Pulse Pulse Resp BP BP 07/12/19 10:33 77 18 92/56 L 07/12/19 09:47 70 20 101/65 07/12/19 09:25 61 22 92/50 L 07/12/19 09:20 61 22 98/52 L 07/12/19 09:15 61 22 101/53 L 07/12/19 09:10 60 22 98/48 L 07/12/19 09:05 60 14 104/60 07/12/19 09:00 60 16 124/60 07/12/19 08:55 62 18 106/46 L 07/12/19 08:50 62 18 122/54 L 07/12/19 08:35 62 18 110/58 L 07/12/19 07:37 36.4 C L 60 18 98/61 L 07/12/19 07:15 61 07/12/19 03:07 36.6 C 64 18 98/62 L 07/11/19 23:17 36.8 C 62 18 88/50 L Pulse Ox 07/12/19 10:33 97 07/12/19 09:47 92 07/12/19 09:25 93 07/12/19 09:20 93 07/12/19 09:15 95 07/12/19 09:10 95 07/12/19 09:05 93 07/12/19 09:00 94 07/12/19 08:55 94 07/12/19 08:50 94 07/12/19 08:35 94 07/12/19 07:37 95 07/12/19 07:15 07/12/19 03:07 91 07/11/19 23:17 94 Laboratory Results Laboratory Results - last 24 hr 07/11/19 07/11/19 07/11/19 06:40 06:40 06:45 WBC 11.93 H RBC 2.89 L Hgb 8.1 L Hct 25.7 L MCV 88.9 MCH 28.0 MCHC 31.5 L RDW Std Deviation 51.1 H RDW Coeff of Praveena 15.9 H Plt Count 354 MPV 10.5 H Immature Gran % (Auto) 0.9 Neut % (Auto) 62.4 Lymph % (Auto) 14.2 [place] % (Auto) 8.6 Eos % (Auto) 12.7 Baso % (Auto) 1.2 Immature Gran # (Auto) 0.11 H Neut # (Auto) 7.43 H Lymph # (Auto) 1.70 [place] # (Auto) 1.03 H Eos # (Auto) 1.52 H Baso # (Auto) 0.14 Absolute Nucleated RBC 0.02 H Nucleated RBC % (auto) 0.1 PT 17.5 H INR 1.8 H APTT 42.6 H PTT Ratio 1.6 Sodium Potassium Chloride Carbon Dioxide Anion Gap BUN Creatinine Est Cr Clr Drug Dosing Est GFR ( Amer) Est GFR (Non-Af Amer) BUN/Creatinine Ratio Glucose POC Glucose Calcium Fluid Neutrophils % Fluid Lymphocytes % Fl Monocyt/Macrophag % CMV Specimen Source CMV Qnt PCR IU/mL CMV Qnt PCR log IU/mL Herpes Virus Source HSV I DNA PCR HSV II DNA PCR Blood Type Antibody Screen Crossmatch 07/11/19 07/11/19 07/11/19 11:20 16:27 20:08 WBC RBC Hgb Hct MCV MCH MCHC RDW Std Deviation RDW Coeff of Praveena Plt Count MPV Immature Gran % (Auto) Neut % (Auto) Lymph % (Auto) [place] % (Auto) Eos % (Auto) Baso % (Auto) Immature Gran # (Auto) Neut # (Auto) Lymph # (Auto) [place] # (Auto) Eos # (Auto) Baso # (Auto) Absolute Nucleated RBC Nucleated RBC % (auto) PT INR APTT PTT Ratio Sodium Potassium Chloride Carbon Dioxide Anion Gap BUN Creatinine Est Cr Clr Drug Dosing Est GFR ( Amer) Est GFR (Non-Af Amer) BUN/Creatinine Ratio Glucose POC Glucose 104 H 139 H 117 H Calcium Fluid Neutrophils % Fluid Lymphocytes % Fl Monocyt/Macrophag % CMV Specimen Source CMV Qnt PCR IU/mL CMV Qnt PCR log IU/mL Herpes Virus Source HSV I DNA PCR HSV II DNA PCR Blood Type Antibody Screen Crossmatch 07/11/19 07/12/19 07/12/19 20:09 06:33 06:33 WBC 10.14 RBC 2.51 L Hgb 6.8 L* Hct 22.1 L MCV 88.0 MCH 27.1 MCHC 30.8 L RDW Std Deviation 50.7 H RDW Coeff of Praveena 15.9 H Plt Count 286 MPV 9.1 Immature Gran % (Auto) Neut % (Auto) Lymph % (Auto) [place] % (Auto) Eos % (Auto) Baso % (Auto) Immature Gran # (Auto) Neut # (Auto) Lymph # (Auto) [place] # (Auto) Eos # (Auto) Baso # (Auto) Absolute Nucleated RBC Nucleated RBC % (auto) PT 15.3 H INR 1.5 H APTT 59.8 H* PTT Ratio 2.2 Sodium Potassium Chloride Carbon Dioxide Anion Gap BUN Creatinine Est Cr Clr Drug Dosing Est GFR ( Amer) Est GFR (Non-Af Amer) BUN/Creatinine Ratio Glucose POC Glucose Calcium Fluid Neutrophils % Fluid Lymphocytes % Fl Monocyt/Macrophag % CMV Specimen Source CMV Qnt PCR IU/mL CMV Qnt PCR log IU/mL Herpes Virus Source HSV I DNA PCR HSV II DNA PCR Blood Type Antibody Screen Crossmatch 07/12/19 07/12/19 07/12/19 06:33 06:36 07:29 WBC RBC Hgb Hct MCV MCH MCHC RDW Std Deviation RDW Coeff of Praveena Plt Count MPV Immature Gran % (Auto) Neut % (Auto) Lymph % (Auto) [place] % (Auto) Eos % (Auto) Baso % (Auto) Immature Gran # (Auto) Neut # (Auto) Lymph # (Auto) [place] # (Auto) Eos # (Auto) Baso # (Auto) Absolute Nucleated RBC Nucleated RBC % (auto) PT INR APTT 35.4 H PTT Ratio 1.3 Sodium 139 Potassium 4.3 Chloride 108 H Carbon Dioxide 25 Anion Gap 6.0 BUN 33 H Creatinine 0.95 Est Cr Clr Drug Dosing 73.7 Est GFR ( Amer) 76.5 Est GFR (Non-Af Amer) 66.0 BUN/Creatinine Ratio 34.4 H Glucose 101 H POC Glucose Calcium 8.4 L Fluid Neutrophils % Fluid Lymphocytes % Fl Monocyt/Macrophag % CMV Specimen Source CMV Qnt PCR IU/mL CMV Qnt PCR log IU/mL Herpes Virus Source HSV I DNA PCR HSV II DNA PCR Blood Type O Positive Antibody Screen NEGATIVE Crossmatch See Detail 07/12/19 07/12/19 07/12/19 07:36 07:53 Unknown WBC RBC Hgb 7.4 L Hct 23.9 L MCV MCH MCHC RDW Std Deviation RDW Coeff of Praveena Plt Count MPV Immature Gran % (Auto) Neut % (Auto) Lymph % (Auto) [place] % (Auto) Eos % (Auto) Baso % (Auto) Immature Gran # (Auto) Neut # (Auto) Lymph # (Auto) [place] # (Auto) Eos # (Auto) Baso # (Auto) Absolute Nucleated RBC Nucleated RBC % (auto) PT INR APTT PTT Ratio Sodium Potassium Chloride Carbon Dioxide Anion Gap BUN Creatinine Est Cr Clr Drug Dosing Est GFR ( Amer) Est GFR (Non-Af Amer) BUN/Creatinine Ratio Glucose POC Glucose 120 H Calcium Fluid Neutrophils % Pending Fluid Lymphocytes % Pending Fl Monocyt/Macrophag % Pending CMV Specimen Source CMV Qnt PCR IU/mL CMV Qnt PCR log IU/mL Herpes Virus Source HSV I DNA PCR HSV II DNA PCR Blood Type Antibody Screen Crossmatch 07/12/19 07/12/19 Unknown Unknown WBC RBC Hgb Hct MCV MCH MCHC RDW Std Deviation RDW Coeff of Praveena Plt Count MPV Immature Gran % (Auto) Neut % (Auto) Lymph % (Auto) [place] % (Auto) Eos % (Auto) Baso % (Auto) Immature Gran # (Auto) Neut # (Auto) Lymph # (Auto) [place] # (Auto) Eos # (Auto) Baso # (Auto) Absolute Nucleated RBC Nucleated RBC % (auto) PT INR APTT PTT Ratio Sodium Potassium Chloride Carbon Dioxide Anion Gap BUN Creatinine Est Cr Clr Drug Dosing Est GFR ( Amer) Est GFR (Non-Af Amer) BUN/Creatinine Ratio Glucose POC Glucose Calcium Fluid Neutrophils % Fluid Lymphocytes % Fl Monocyt/Macrophag % CMV Specimen Source Pending CMV Qnt PCR IU/mL Pending CMV Qnt PCR log IU/mL Pending Herpes Virus Source Pending HSV I DNA PCR Pending HSV II DNA PCR Pending Blood Type Antibody Screen Crossmatch Medications Administered Current Inpatient Medications Acetaminophen (Tylenol) 650 mg PO Q4H PRN PRN Reason: Pain or Fever Stop: 08/08/19 12:44 Albuterol (Ventolin Hfa) 2 puffs INH Q6H PRN PRN Reason: Shortness Of Breath Or Wheezin Allopurinol (Zyloprim) 300 mg PO HS JENELLE Stop: 08/08/19 20:59 Last Admin: 07/11/19 21:05 Dose: 300 mg Documented by: Carvedilol (Coreg) 12.5 mg PO BID JENELLE Stop: 08/08/19 20:59 Last Admin: 07/11/19 21:03 Dose: 12.5 mg Documented by: Dextrose (Dextrose 50%) 25 - 50 ml IV UD PRN; Protocol PRN Reason: Hypoglycemia Protocol Stop: 08/08/19 14:44 Glucagon (Glucagen) 1 mg IM UD PRN; Protocol PRN Reason: Hypoglycemia Protocol Stop: 08/08/19 14:44 Glucose (Glucose 40%) 15 - 30 gm PO UD PRN; Protocol PRN Reason: Hypoglycemia Protocol Stop: 08/08/19 14:44 Glucose (Dex4 Glucose) 4 - 8 tabs PO UD PRN; Protocol PRN Reason: Hypoglycemia Protocol Stop: 08/08/19 14:44 Sodium Chloride (Nss) 250 mls @ 15 mls/hr IV .[id number] PRN PRN Reason: For Transfusion Stop: 07/12/19 23:59 Insulin Aspart (Novolog Flexpen) 0 units SC ACHS JENELLE Stop: 08/08/19 16:29 Last Admin: 07/12/19 07:48 Dose: Not Given Documented by: Insulin Glargine (Lantus Solostar Pen) 0 - 15 units SC BID [facility]; Protocol Stop: 08/08/19 20:59 Last Admin: 07/12/19 07:49 Dose: Not Given Documented by: Levothyroxine Sodium (Synthroid) 175 mcg PO Th@0630 [facility] Stop: 08/12/19 06:29 Levothyroxine Sodium (Synthroid) 200 mcg PO SuMoTuWeFrSa@0630 [facility] Stop: 08/08/19 13:29 Last Admin: 07/12/19 05:48 Dose: 200 mcg Documented by: Lisinopril (Zestril) 40 mg PO DAILY [facility] Stop: 08/09/19 08:59 Last Admin: 07/11/19 08:23 Dose: 40 mg Documented by: Magnesium Oxide (Mag-Ox) 400 mg PO TID [facility] Stop: 08/08/19 13:59 Last Admin: 07/11/19 21:03 Dose: 400 mg Documented by: Miscellaneous (Carbohydrates For Hypoglycemia) 15 - 30 gm PO UD PRN PRN Reason: Hypoglycemia Treatment Stop: 08/08/19 14:44 Montelukast Sodium (Singulair) 10 mg PO QAM [facility] Stop: 08/09/19 08:59 Last Admin: 07/11/19 08:23 Dose: 10 mg Documented by: Oxymetazoline HCl (Afrin 0.05%) 2 sprays CALVIN PREOP [facility] Last Admin: 07/12/19 05:48 Dose: 2 sprays Documented by: (1) Anemia Anemia type: unspecified type Qualified Code(s): D64.9 - Anemia, unspecified
[2019-07-12] MEDS ORDERED: Heparin IV Standard *NO* Bolus IV ONE (10:39)
[2019-07-12] MEDS: carvediloL 12.5 MG TAB PO SCH ×2 (11:24→20:57)
[2019-07-12 11:28] LABS: Eosinophil Body Fluid Man 5 %; Fluid Mono/Macrophage 70 %; Lymphocyte Body Fluid Man 7 %; Neutrophil Body Fluid Man 18 %
[2019-07-12] MEDS: HEPARIN SODIUM/DEXTROSE 25,000 UNITS/500 ML BAG IV SCH (11:32)
[2019-07-12] MEDS: MAGNESIUM OXIDE 400 MG TAB PO SCH ×3 (11:41→20:57)
[2019-07-12] MEDS: MONTELUKAST SODIUM 10 MG TABLET PO SCH (11:42)
[2019-07-12] MEDS: lisinopriL 40 MG TAB PO SCH (11:42)
--- NOTE | 2019-07-12 13:35 | Pulmonology Progress Note ---
Date of Service July 12, 2019 Assessment & Plan (1) Acute hypoxemic respiratory failure: Elevated ESR and CRP suggestive of possible inflammatory process Hypoxia could be secondary to significant hemoptysis Now on room air with no significant hemoptysis Patient completed 2 courses of antibiotics. Procalcitonin is negative Echocardiogram completed with ejection fraction 55 to 60%. There is no evidence of pulmonary hypertension. Significant mitral regurgitation is absent. No sig nificant aortic stenosis or regurgitation Patient tolerating use of home CPAP: 13 cm/H2O Influenza type A and type B are negative Other serologies pending Immunology studies including RF, AJNUM, anti-proteinase, ANCA, GBM, anti- myeloperoxidase are pending (2) Hemoptysis: Unclear etiology Anticipated bronchoscopy to evaluate for alveolar hemorrhage Supratherapeutic on warfarin with elevated INR * INR now 1.[address] Mckee this morning (3) Anemia: Patient had a hemoglobin this morning of 6.8. She has been running in the low eights as rule. She denies any melena, hematochezia, bright red blood per rectum, hematemesis, or other active bleeding. Repeat labs were performed and hemoglobin was 7.4. MCV is low normal at 88 The patient has remained relatively hemodynamically stable. She has no abdominal pain. Patient is currently scheduled for bronchoscopy to evaluate for hemoptysis Follow serial labs Thank you for including us in the care of this patient. We will continue to follow along with you. Please refer to Dr. Mceke's addendum for further recommendations. Anemia type: unspecified type Qualified Code(s): D64.9 - Anemia, unspecified Supervising Physician Co-Signing Physician Notes Patient seen and examined with Anupam Duran PA-C. I agree with note signed for any additions/exceptions noted: There is clear evidence of alveolar hemorrhage on the bronchoscopy. There is no clearing of the BAL fluid on sequential aliquots. We have sent this for cultures and cytology. I think this is likely a bland hemorrhage related to her elevated INR. Recommend reduced INR goals if feasible. There is no specific intervention for a bland diffuse alveolar hemorrhage other than allowing for the blood to reabsorb on its own and minimizing anticoagulant usage. Subjective Attending: Dr. Mckee Patient reports that she had a good night last night. Cough seems to be improved. There is no further significant hemoptysis. Very scant bloody streaks in sputum. No chest pain or tightness tightness. No pleuritic pain. No shortness of breath. Patient did have a drop in hemoglobin of 1.4 g as reflected in morning labs. H&H was repeated. Patient denies any melena hematochezia or bright red blood per rectum. She denies any hematemesis. She has no abdominal pain or flank pain. She has no abdominal distention. She has no rectal pain or tenesmus. Review of Systems Review of Systems: All systems reviewed & are unremarkable except as noted in HPI & below Physical Exam Physical Exam: GENERAL : No acute distress EYES: No icterus, gaze conjugate NOSE: No evidence of epistaxis MOUTH: No lesions or candidiasis NECK: Supple LUNGS: CTA B/L, no wheezes, rales or rhonchi HEART: Regular, rate controlled ABDOMEN: Soft, NT, ND, BS Present EXTREMITIES: No LE edema, pedal pulses intact NEURO: A&OX3 Results & Data Vital Signs (Past 12 Hours) Vital Signs Temp Pulse Pulse Pulse Resp BP BP 07/12/19 11:13 36.7 C 68 20 94/61 L 07/12/19 10:33 77 18 92/56 L 07/12/19 09:47 70 20 101/65 07/12/19 09:25 61 22 92/50 L 07/12/19 09:20 61 22 98/52 L 07/12/19 09:15 61 22 101/53 L 07/12/19 09:10 60 22 98/48 L 07/12/19 09:05 60 14 104/60 07/12/19 09:00 60 16 124/60 07/12/19 08:55 62 18 106/46 L 07/12/19 08:50 62 18 122/54 L 07/12/19 08:35 62 18 110/58 L 07/12/19 07:37 36.4 C L 60 18 98/61 L 07/12/19 07:15 61 07/12/19 03:07 36.6 C 64 18 98/62 L Pulse Ox 07/12/19 11:13 96 07/12/19 10:33 97 07/12/19 09:47 92 07/12/19 09:25 93 07/12/19 09:20 93 07/12/19 09:15 95 07/12/19 09:10 95 07/12/19 09:05 93 07/12/19 09:00 94 07/12/19 08:55 94 07/12/19 08:50 94 07/12/19 08:35 94 07/12/19 07:37 95 07/12/19 07:15 07/12/19 03:07 91 Laboratory Results 07/12/19 07:53 07/12/19 06:36 Laboratory Tests 07/09/19 07/10/19 07/11/19 09:40 06:19 06:40 INR 6.5 H* 3.7 H 1.8 H 07/12/19 06:33 INR 1.5 H Diagnostic Findings No further diagnostic imaging since 07/10/19 PG Care Time/CCT Total # of Minutes Spent Total Time Spent with Patient: Total time spent is greater than 50% in coordination of care (as documented) at patient's floor/unit and/or counseling patient: 30
[2019-07-12] MEDS ORDERED: BENZONATATE 100 MG CAPSULE PO PRN (14:07)
[2019-07-12] MEDS ORDERED: GLUCOSAMINE SULFATE 1500 MG PO SCH (14:15)
--- NOTE | 2019-07-12 15:31 | Hospitalist Progress Note ---
Date of Service July 12, 2019 Assessment & Plan (1) Hypoxia: Presented on admission with worsening SOB with O2 saturation as low as 87% on RA. Secondary to extensive bilateral airspace opacities :CT chest showed extensive bilateral airspace opacities within the lungs. CXR showed no significant change in bilateral central predominant pulmonary infiltrates, right greater than left. ProBNP and procalcitonin, Influenza PCR negative ECHO done showed no wall motion abnormality. EF 55 to 60 % Clinically better this morning (2) Abnormal chest xray: As above Chest x-ray suggests pulmonary edema +/- bilat infiltrates. No sign of fluid overload Elevated ESR and C-reactive Immunology studies including RF, ANJUM, anti-proteinase, ANCA, GBM, anti- myeloperoxidase are pending To rule out any hematological condition causing this inflammatory lung disease Appreciate pulmonary input and recommendation Status post bronchoscopy today 07/12 (3) Hemoptysis: On Coumadin with INR on admission above 6 No Vit K given due to her history of mechanical valve Pulmonary consult INR went down to 1.5 today and she has had bronchoscopy Did show possible alveolar hemorrhage with normal bronchial tree as well as the endoscope allowed No more hemoptysis since last Heparin and Coumadin has been restarted (4) Anemia: Hgb on 07/02 was 10 Hemoglobin dropped to 6.8 today and repeat check showed 7.4 Likely has chronic anemia and is complicated by episode of alveolar hemorrhage Iron studies is suggestive of iron, vitamin B12 and folate level and TSH within normal range Has been started on oral iron (5) Atrial fibrillation: Rate control Continue carvedilol and warfarin. Coumadin on hold due hemoptysis Starting on heparin drip Will hold heparin drip in am for Bronch Check PT/INR Heparin and Coumadin the study (6) History of mitral valve replacement with mechanical valve: S/P MVR 18 years ago with mechanical valve. Heparin and Coumadin have been restarted (7) Diabetes mellitus type 2, controlled: Hba1c 5.4 Metformin on hold during hospital stay Continue Lantus and insulin sliding scale Monitor BS (8) Hypothyroidism: Continue current dose of levothyroxine. TSH normal (9) Gout: No recent flares. Continue allopurinol. (10) Vitamin B12 deficiency: B12 elevated On B12 supplement (11) DVT prophylaxis: Coumadin on hold due to INR On Heparin drip (12) Discharge planning issues: Primary care follow-up with Dr. Minor. Cardiology follow-up with Dr. Gallardo. Subjective 07/12 The patient was seen and examined in telemetry unit He is a status post bronchoscopy Has been feeling much better following bronchoscopic evaluation Denies any hemoptysis since last night Denies any chest pain and/or palpitation or any shortness of breath Review of Systems Review of Systems: All systems reviewed and unremarkable except as noted below Respiratory: + cough; no dyspnea Cardiovascular: no chest pain Neurologic: + generalized weakness Physical Exam Physical Exam: Sitting at the bed without any acute symptoms Constitutional: well developed, well nourished and + obese; no acute distress and not ill appearing Eyes: PERRL, conjunctivae normal, anicteric sclerae ENMT: external ear and nose normal, oropharynx normal Neck: trachea midline, no thyromegaly Respiratory: normal respiratory effort; no respiratory distress Auscultation: + diminished lung sounds and + crackles (Minimal crackles bilaterally) Cardiovascular: Rate/Rhythm: regular rate Heart Sounds: + murmur (mechanical valve sounds in mitral position with II/ systolic murmur); no gallop and no cardiac rub Vessels: normal peripheral pulses and dorsalis pedis pulses present; no JVD Extremities: normal capillary refill and + edema (trace pretibial); no calf tenderness Gastrointestinal (Abdomen): Inspection/Auscultation: abdomen normal to inspection and normal bowel sounds Percussion/Palpation: abdomen soft Musculoskeletal: Head/Neck/Chest: neck supple Extremities: strength 5/5 throughout; no cyanosis and no clubbing Skin: no rashes, warm and dry Neurologic: moves all extremities; no focal motor deficits Psychiatric: Orientation: alert and oriented x 3 Affect: euthymic affect Lymphatic: no cervical lymphadenopathy Results & Data Vital Signs (Past 12 Hours) Vital Signs Temp Pulse Pulse Resp BP BP Pulse Ox 07/12/19 11:13 36.7 C 68 20 94/61 L 96 07/12/19 10:33 77 18 92/56 L 97 07/12/19 09:47 70 20 101/65 92 07/12/19 09:25 61 22 92/50 L 93 07/12/19 09:20 61 22 98/52 L 93 07/12/19 09:15 61 22 101/53 L 95 07/12/19 09:10 60 22 98/48 L 95 07/12/19 09:05 60 14 104/60 93 07/12/19 09:00 60 16 124/60 94 07/12/19 08:55 62 18 106/46 L 94 07/12/19 08:50 62 18 122/54 L 94 07/12/19 08:35 62 18 110/58 L 94 07/12/19 07:37 36.4 C L 60 18 98/61 L 95 07/12/19 07:15 61 Laboratory Results Short CBC 07/12/19 07/12/19 Range/Units 06:33 07:53 WBC 10.14 (4.8-10.8) K/uL Hgb 6.8 L* 7.4 L (12.0-16.0) g/dL Hct 22.1 L 23.9 L (37-47) % Plt Count 286 (130-400) K/uL BMP 07/12/19 06:36 Sodium 139 Potassium 4.3 Chloride 108 H Carbon Dioxide 25 BUN 33 H Creatinine 0.95 Glucose 101 H Calcium 8.4 L Medications Administered Current Inpatient Medications Acetaminophen (Tylenol) 650 mg PO Q4H PRN PRN Reason: Pain or Fever Stop: 08/08/19 12:44 Albuterol (Ventolin Hfa) 2 puffs INH Q6H PRN PRN Reason: Shortness Of Breath Or Wheezin Allopurinol (Zyloprim) 300 mg PO HS JENELLE Stop: 08/08/19 20:59 Last Admin: 07/11/19 21:05 Dose: 300 mg Documented by: Benzonatate (Tessalon Perle) 100 mg PO TID PRN PRN Reason: Cough Stop: 08/11/19 14:06 Calcium Carbonate (Os-Patrice 500) 500 mg PO BID JENELLE Stop: 08/11/19 20:59 Carvedilol (Coreg) 12.5 mg PO BID JENELLE Stop: 08/08/19 20:59 Last Admin: 07/12/19 11:24 Dose: Not Given Documented by: Cyanocobalamin (Vitamin B-12) 1,000 mcg PO HS JENELLE Stop: 08/11/19 20:59 Dextrose (Dextrose 50%) 25 - 50 ml IV UD PRN; Protocol PRN Reason: Hypoglycemia Protocol Stop: 08/08/19 14:44 Ferrous Sulfate (Feosol) 325 mg PO TIDM JENELLE Stop: 08/11/19 16:59 Furosemide (Lasix) 40 mg PO QAM [facility] Stop: 08/11/19 14:14 Glucagon (Glucagen) 1 mg IM UD PRN; Protocol PRN Reason: Hypoglycemia Protocol Stop: 08/08/19 14:44 Glucose (Glucose 40%) 15 - 30 gm PO UD PRN; Protocol PRN Reason: Hypoglycemia Protocol Stop: 08/08/19 14:44 Glucose (Dex4 Glucose) 4 - 8 tabs PO UD PRN; Protocol PRN Reason: Hypoglycemia Protocol Stop: 08/08/19 14:44 Sodium Chloride (Nss) 250 mls @ 15 mls/hr IV .[id number] PRN PRN Reason: For Transfusion Stop: 07/12/19 23:59 Heparin Sodium/Dextrose (Heparin Sodium/Dextrose) 25,000 units in 500 mls @ 26 mls/hr IV .[id number] JENELLE; Protocol Stop: 08/11/19 10:44 Last Titration: 07/12/19 15:15 Dose: 1,300 units/hr, 26 mls/hr Documented by: Insulin Aspart (Novolog Flexpen) 0 units SC ACHS [facility] Stop: 08/08/19 16:29 Last Admin: 07/12/19 12:31 Dose: Not Given Documented by: Insulin Glargine (Lantus Solostar Pen) 0 - 15 units SC BID [facility]; Protocol Stop: 08/08/19 20:59 Last Admin: 07/12/19 07:49 Dose: Not Given Documented by: Levothyroxine Sodium (Synthroid) 175 mcg PO Th@0630 [facility] Stop: 08/12/19 06:29 Levothyroxine Sodium (Synthroid) 200 mcg PO SuMoTuWeFrSa@0630 [facility] Stop: 08/08/19 13:29 Last Admin: 07/12/19 05:48 Dose: 200 mcg Documented by: Lisinopril (Zestril) 40 mg PO DAILY [facility] Stop: 08/09/19 08:59 Last Admin: 07/12/19 11:42 Dose: 40 mg Documented by: Magnesium Oxide (Mag-Ox) 400 mg PO TID [facility] Stop: 08/08/19 13:59 Last Admin: 07/12/19 14:16 Dose: 400 mg Documented by: Miscellaneous (Carbohydrates For Hypoglycemia) 15 - 30 gm PO UD PRN PRN Reason: Hypoglycemia Treatment Stop: 08/08/19 14:44 Miscellaneous (Order Awaiting Action) 1 ea N/A QS [facility] Stop: 08/11/19 15:59 Montelukast Sodium (Singulair) 10 mg PO QAM [facility] Stop: 08/09/19 08:59 Last Admin: 07/12/19 11:42 Dose: 10 mg Documented by: Oxymetazoline HCl (Afrin 0.05%) 2 sprays CALVIN PREOP [facility] Last Admin: 07/12/19 05:48 Dose: 2 sprays Documented by: Potassium Chloride (Klor-Con M10) 10 meq PO QAM [facility] Stop: 08/12/19 08:59 Vitamin D (Vitamin D3) 5,000 units PO Hernandes@0900 [facility] Stop: 08/15/19 08:59 Warfarin Sodium (Coumadin) 2 mg PO Th@1600 [facility] Stop: 08/12/19 15:59 Warfarin Sodium (Coumadin) 10 mg PO SuMoTuWeFrSa@1600 JENELLE Stop: 08/11/19 15:59 Warfarin Sodium (Coumadin) 10 mg PO Th@1600 [facility] Stop: 08/12/19 15:59 (1) Anemia Anemia type: unspecified type Qualified Code(s): D64.9 - Anemia, unspecified
[2019-07-12] MEDS: WARFARIN SOD 10 MG TAB PO SCH (17:16)
[2019-07-12] MEDS: FUROSEMIDE 40 MG TAB PO SCH (17:18)
[2019-07-12] MEDS: FERROUS SULFATE 325 MG TAB PO SCH (17:19)
[2019-07-12 18:26] LABS: Hematocrit (blood only) 23.4 % (37-47); Hemoglobin 7.3 g/dL (12.0-16.0)
[2019-07-12 19:06] LABS: Partial Thromboplastin Time 53.5 Seconds (21.0-31.0)
[2019-07-12] MEDS: CALCIUM CARBONATE 1250MG TAB PO SCH (20:55)
[2019-07-12] MEDS: CYANOCOBALAMIN 500 MCG TABLET (VITAMIN B-12) PO SCH (20:56)
[2019-07-12] MEDS: allopurinoL 300 MG TAB PO SCH (20:58)
[2019-07-13] MEDS: OXYMETAZOLINE 0.05% 30 ML BTL NAE SCH (04:45)
[2019-07-13] MEDS: HEPARIN SODIUM/DEXTROSE 25,000 UNITS/500 ML BAG IV SCH (06:08)
[2019-07-13 06:12] LABS: INR 1.4 (0.9-1.1); Prothrombin Time 13.9 Seconds (9.0-12.0)
[2019-07-13 06:18] LABS: Hematocrit (blood only) 21.8 % (37-47); Hemoglobin 6.8 g/dL (12.0-16.0); Mean Corpuscular Hemoglobin 27.6 pg (25-34); Mean Corpuscular Hgb Conc 31.2 g/dL (32-36); Mean Corpuscular Volume 88.6 fL (80-100); Mean Platelet Volume 9.2 fL (7.4-10.4); Platelet Count 278 K/uL (130-400); RDW Coefficient of Variation 16.1 % (11.5-14.5); RDW Standard Deviation 51.8 fL (36.4-46.3); Red Blood Count 2.46 M/uL (4.2-5.4); White Blood Count 9.51 K/uL (4.8-10.8)
[2019-07-13 06:23] LABS: Basophils % (auto) 1.1 %; Eosinophils # (auto) 1.23 K/uL (0-0.5); Eosinophils % (auto) 12.9 %; Immature Granulocytes # (auto) 0.09 K/uL (0.00-0.02); Immature Granulocytes % (auto) 0.9 %; Monocytes # (auto) 0.79 K/uL (0.11-0.59); Monocytes % (auto) 8.3 %; Neutrophils % (auto) 56.8 %; Polychromasia 1+
[2019-07-13 06:28] LABS: BUN Creatinine Ratio 33.2 (10-20); Calcium 8.4 mg/dl (8.5-10.1); Creatinine Clr Calc Pharmacy 80.2 ml/min; Est GFR (African American) 85.1; Est GFR (Non-African American) 73.4; Potassium 4.2 mmol/L (3.5-5.1)
[2019-07-13] MEDS ORDERED: LEVOTHYROXINE SODIUM 175 MCG TABLET PO SCH (06:30)
[2019-07-13 07:08] LABS: Partial Thromboplastin Ratio 2.3
[2019-07-13 07:26] LABS: Partial Thromboplastin Time 62.6 Seconds (21.0-31.0)
[2019-07-13] MEDS: MONTELUKAST SODIUM 10 MG TABLET PO SCH (08:20)
[2019-07-13] MEDS: POTASSIUM CHLORIDE 10 MEQ TABCR PO SCH (08:20)
[2019-07-13] MEDS: MAGNESIUM OXIDE 400 MG TAB PO SCH ×3 (08:21→21:47)
[2019-07-13] MEDS: CALCIUM CARBONATE 1250MG TAB PO SCH ×2 (08:21→22:30)
[2019-07-13] MEDS: FERROUS SULFATE 325 MG TAB PO SCH ×3 (08:21→18:08)
[2019-07-13] MEDS: lisinopriL 40 MG TAB PO SCH (08:21)
[2019-07-13] MEDS: INSULIN ASPART 100 UNITS/ML 3 ML PEN SC SCH ×4 (08:23→21:51)
[2019-07-13] MEDS: INSULIN GLARGINE SOLOSTAR 100 UNITS/ML 3 ML PEN SC SCH ×2 (08:25→21:51)
[2019-07-13] MEDS: carvediloL 12.5 MG TAB PO SCH ×2 (08:26→21:49)
[2019-07-13] MEDS: FUROSEMIDE 40 MG TAB PO SCH (10:50)
--- NOTE | 2019-07-13 10:52 | Pulmonology Progress Note ---
Date of Service July 13, 2019 Assessment & Plan (1) Acute hypoxemic respiratory failure: Elevated ESR and CRP suggestive of possible inflammatory process Hypoxia could be secondary to significant hemoptysis Now on room air with no significant hemoptysis Patient completed 2 courses of antibiotics. Procalcitonin is negative No clear utility for steroids Echocardiogram completed with ejection fraction 55 to 60%. There is no evidence of pulmonary hypertension. No significant aortic stenosis or regurgitation Patient tolerating use of home CPAP: 13 cm/H2O Influenza type A and type B are negative Other serologies pending Immunology studies including RF, ANJUM, anti-proteinase, ANCA, GBM, anti- myeloperoxidase are pending (2) Hemoptysis: Bronchoscopy with Dr. Mckee 07/12/19 - POD#1 Findings with bland alveolar hemorrhage No clear source of bleeding * There is no specific intervention other than allowing lower INR * Targeted the INR as an outpatient has been 2.5-3.5 * We will have patient discuss with cardiology regarding treatment plan regarding anticoagulation Labs are currently pending from the bronchoscopy Please refer to Dr. Mckee's procedure note for further information (3) Anemia: Patient had a hemoglobin again this morning of 6.8. No melena, hematochezia, bright red blood per rectum, hematemesis, or other ac tive bleeding. MCV is low normal at 88 The patient has remained relatively hemodynamically stable. She has no abdominal pain. Patient is receiving 1 unit of packed red blood cells at the time of my ev aluation For the management of anemia per primary team Thank you for including us in the care of this patient. We will sign off at this time. Please feel free to reconsult as needed. Please refer to Dr. Mckee's addendum for further recommendations. Anemia type: unspecified type Qualified Code(s): D64.9 - Anemia, unspecified Subjective Attending: Dr. Mckee Patient seen and examined at bedside. She has minimal increase in hemoptysis status post bronchoscopy yesterday. Findings revealed alveolar hemorrhage most likely secondary to elevated INR. Patient denies any chest pain or tightness. She is on supplemental O2 at 2 to 3 L via nasal cannula but is saturating 96 to 97%. She denies any significant shortness of breath but feels as though she is more confident with small amounts of supplemental O2. Patient does have a history of epistaxis and is aware that supplemental O2 may exacerbate drying of mucosa resulting in nosebleed. The patient has no new acute complaints. She denies fever chills. No nausea or vomiting. No sore throat or hoarseness. The patient has no other acute complaints. Review of Systems Review of Systems: All systems reviewed & are unremarkable except as noted in HPI & below Physical Exam Physical Exam: GENERAL : No acute distress. Seen in bedside chair EYES: No icterus, gaze conjugate NOSE: No evidence of epistaxis MOUTH: No lesions or candidiasis. No evidence of bleeding in the posterior oropharynx. Mucosa is moist. NECK: Supple LUNGS: CTA B/L, no wheezes, rales or rhonchi. HEART: Regular, rate controlled ABDOMEN: Soft, NT, ND, BS Present EXTREMITIES: No LE edema, pedal pulses intact. Bilateral chronic venous change NEURO: A&OX3 Results & Data Vital Signs (Past 12 Hours) Vital Signs Temp Pulse Pulse Pulse Pulse Resp BP 07/13/19 10:14 36.7 C 66 66 18 99/55 L 07/13/19 09:14 36.3 C L 61 18 87/56 L 07/13/19 08:44 36.5 C 62 18 88/55 L 07/13/19 08:29 36.9 C 64 18 86/52 L 07/13/19 08:12 36.7 C 62 18 89/47 L 07/13/19 06:44 36.7 C 84 20 07/13/19 04:45 36.7 C 72 20 07/13/19 00:00 60 07/12/19 23:24 37.1 C 65 BP Pulse Ox 07/13/19 10:14 92/55 L 96 07/13/19 09:14 97 07/13/19 08:44 97 07/13/19 08:29 95 07/13/19 08:12 98 07/13/19 06:44 99/64 L 90 07/13/19 04:45 112/69 94 07/13/19 00:00 07/12/19 23:24 82/47 L 89 L Laboratory Results 07/13/19 05:48 07/13/19 05:48 Laboratory Tests 07/02/19 07/09/19 07/10/19 11:35 09:40 06:19 Hgb 10.0 L 8.5 L 8.2 L 07/11/19 07/12/1919 06:45 06:33 07:53 Hgb 8.1 L 6.8 L* 7.4 L 07/12/19 07/13/19 18:05 05:48 Hgb 7.3 L 6.8 L* Diagnostic Findings No new diagnostic imaging since 07/10/2019 PG Care Time/CCT Total # of Minutes Spent Total Time Spent with Patient: Total time spent is greater than 50% in coordination of care (as documented) at patient's floor/unit and/or counseling patient: 30
--- NOTE | 2019-07-13 13:51 | Hospitalist Progress Note ---
Date of Service July 13, 2019 Assessment & Plan (1) Hypoxia: Presented on admission with worsening SOB with O2 saturation as low as 87% on RA. Secondary to extensive bilateral airspace opacities :CT chest showed extensive bilateral airspace opacities within the lungs. CXR showed no significant change in bilateral central predominant pulmonary infiltrates, right greater than left. ProBNP and procalcitonin, Influenza PCR negative ECHO done showed no wall motion abnormality. EF 55 to 60 % Clinically better this morning Remains minimal shortness of breath at rest Will give 2 units of blood transfusion for low hemoglobin to see the effect (2) Abnormal chest xray: As above Chest x-ray suggests pulmonary edema +/- bilat infiltrates. No sign of fluid overload Elevated ESR and C-reactive Immunology studies including RF, ANJUM, anti-proteinase, ANCA, GBM, anti- myeloperoxidase are pending To rule out any hematological condition causing this inflammatory lung disease Appreciate pulmonary input and recommendation Status post bronchoscopy today 07/12-showed alveolar hemorrhage but no acute endobronchial hemorrhage (3) Hemoptysis: On Coumadin with INR on admission above 6 No Vit K given due to her history of mechanical valve Pulmonary consult INR went down to 1.5 today and she has had bronchoscopy Did show possible alveolar hemorrhage with normal bronchial tree as well as the endoscope allowed No more hemoptysis since last Continues to have minimal hemoptysis Discussed with etl data architect and will hold off any anticoagulation at this time (4) Anemia: Hgb on 07/02 was 10 Hemoglobin dropped to 6.8 today and repeat check showed 7.4 Likely has chronic anemia and is complicated by episode of alveolar hemorrhage Iron studies is suggestive of iron, vitamin B12 and folate level and TSH within normal range Has been started on oral iron Hemoglobin dropped to 6.8 and she will receive 2 units of blood transfusion today (5) Atrial fibrillation: Rate control Continue carvedilol and warfarin. Coumadin on hold due hemoptysis Starting on heparin drip Will hold heparin drip in am for Bronch Check PT/INR We will hold off anticoagulation for a day or 2 (6) History of mitral valve replacement with mechanical valve: S/P MVR 18 years ago with mechanical valve. Heparin and Coumadin have been restarted Risk of clotting is high without anticoagulation She is aware about it but she does not want to go for any further surgery on the heart (7) Diabetes mellitus type 2, controlled: Hba1c 5.4 Metformin on hold during hospital stay Continue Lantus and insulin sliding scale Monitor BS (8) Hypothyroidism: Continue current dose of levothyroxine. TSH normal (9) Gout: No recent flares. Continue allopurinol. (10) Vitamin B12 deficiency: B12 elevated On B12 supplement (11) DVT prophylaxis: Coumadin on hold due to INR On Heparin drip (12) Discharge planning issues: Primary care follow-up with Dr. To. Cardiology follow-up with Dr. Gallardo. Subjective 07/12 The patient was seen and examined in telemetry unit He is a status post bronchoscopy Has been feeling much better following bronchoscopic evaluation Denies any hemoptysis since last night Denies any chest pain and/or palpitation or any shortness of breath 07/13 Patient was seen and examined in telemetry unit She has had hemoptysis again this morning Otherwise she has been feeling a lot better since admission Her hemoglobin went down to 6.8 Remains shortness of breath minimally at rest and worse with exertion Review of Systems Review of Systems: All systems reviewed and unremarkable except as noted below Constitutional: + fever (? low grade), + malaise and + weight gain (wt fluctuates) Respiratory: + cough, + dyspnea and + dyspnea on exertion Cardiovascular: no chest pain Gastrointestinal: + diarrhea/loose stools (chronic, intermittent, attributed to magnesium supplement); no nausea, no vomiting, no constipation, no blood in stools and no melena Musculoskeletal: + joint pain Neurologic: + generalized weakness Endocrine: blood sugars well controlled, usually in low-mid 100's Physical Exam Physical Exam: Sitting on a chair with anxiety and some shortness of Constitutional: well developed, well nourished and + obese; no acute distress and not ill appearing Eyes: PERRL, conjunctivae normal, anicteric sclerae ENMT: external ear and nose normal, oropharynx normal Neck: trachea midline, no thyromegaly Respiratory: normal respiratory effort and + cough; no respiratory distress Auscultation: + diminished lung sounds and + crackles (Minimal crackles bilaterally) Cardiovascular: Rate/Rhythm: regular rate Heart Sounds: + murmur (mechanical valve sounds in mitral position with II/ systolic murmur); no gallop and no cardiac rub Vessels: normal peripheral pulses and dorsalis pedis pulses present; no JVD Extremities: normal capillary refill and + edema (trace pretibial); no calf tenderness Gastrointestinal (Abdomen): Inspection/Auscultation: abdomen normal to i nspection and normal bowel sounds Percussion/Palpation: abdomen soft Musculoskeletal: Head/Neck/Chest: neck supple Extremities: strength 5/5 throughout; no cyanosis and no clubbing Skin: no rashes, warm and dry Neurologic: moves all extremities; no focal motor deficits Psychiatric: Orientation: alert and oriented x 3 Affect: euthymic affect Lymphatic: no cervical lymphadenopathy Results & Data Vital Signs (Past 12 Hours) Vital Signs Temp Pulse Pulse Pulse Resp BP BP 07/13/19 12:44 36.5 C 72 20 95/58 L 07/13/19 12:15 36.5 C 72 18 107/70 07/13/19 12:00 36.6 C 62 18 97/56 L 07/13/19 11:42 36.9 C 62 18 88/54 L 07/13/19 10:58 36.7 C 65 18 85/55 L 07/13/19 10:14 36.7 C 66 66 18 99/55 L 92/55 L 07/13/19 09:14 36.3 C L 61 18 87/56 L 07/13/19 08:44 36.5 C 62 18 88/55 L 07/13/19 08:29 36.9 C 64 18 86/52 L 07/13/19 08:12 36.7 C 62 18 89/47 L 07/13/19 06:44 36.7 C 84 20 99/64 L 07/13/19 04:45 36.7 C 72 20 112/69 Pulse Ox 07/13/19 12:44 96 07/13/19 12:15 95 07/13/19 12:00 93 07/13/19 11:42 97 07/13/19 10:58 96 07/13/19 10:14 96 07/13/19 09:14 97 07/13/19 08:44 97 07/13/19 08:29 95 07/13/19 08:12 98 07/13/19 06:44 90 07/13/19 04:45 94 Laboratory Results Short CBC 07/12/19 07/13/19 Range/Units 18:05 05:48 WBC 9.51 (4.8-10.8) K/uL Hgb 7.3 L 6.8 L* (12.0-16.0) g/dL Hct 23.4 L 21.8 L (37-47) % Plt Count 278 (130-400) K/uL BMP 07/13/19 05:48 Sodium 141 Potassium 4.2 Chloride 108 H Carbon Dioxide 26 BUN 29 H Creatinine 0.87 Glucose 103 H Calcium 8.4 L Medications Administered Current Inpatient Medications Acetaminophen (Tylenol) 650 mg PO Q4H PRN PRN Reason: Pain or Fever Stop: 08/08/19 12:44 Albuterol (Ventolin Hfa) 2 puffs INH Q6H PRN PRN Reason: Shortness Of Breath Or Wheezin Allopurinol (Zyloprim) 300 mg PO HS JENELLE Stop: 08/08/19 20:59 Last Admin: 07/12/19 20:58 Dose: 300 mg Documented by: Benzonatate (Tessalon Perle) 100 mg PO TID PRN PRN Reason: Cough Stop: 08/11/19 14:06 Calcium Carbonate (Os-Patrice 500) 500 mg PO BID JENELLE Stop: 08/11/19 20:59 Last Admin: 07/13/19 08:21 Dose: 500 mg Documented by: Carvedilol (Coreg) 12.5 mg PO BID JENELLE Stop: 08/08/19 20:59 Last Admin: 07/13/19 08:26 Dose: Not Given Documented by: Cyanocobalamin (Vitamin B-12) 1,000 mcg PO HS JENELLE Stop: 08/11/19 20:59 Last Admin: 07/12/19 20:56 Dose: 1,000 mcg Documented by: Dextrose (Dextrose 50%) 25 - 50 ml IV UD PRN; Protocol PRN Reason: Hypoglycemia Protocol Stop: 08/08/19 14:44 Ferrous Sulfate (Feosol) 325 mg PO TIDM JENELLE Stop: 08/11/19 16:59 Last Admin: 07/13/19 11:47 Dose: 325 mg Documented by: Furosemide (Lasix) 40 mg PO QAM JENELLE Stop: 08/11/19 14:14 Last Admin: 07/13/19 10:50 Dose: Not Given Documented by: Glucagon (Glucagen) 1 mg IM UD PRN; Protocol PRN Reason: Hypoglycemia Protocol Stop: 08/08/19 14:44 Glucose (Glucose 40%) 15 - 30 gm PO UD PRN; Protocol PRN Reason: Hypoglycemia Protocol Stop: 08/08/19 14:44 Glucose (Dex4 Glucose) 4 - 8 tabs PO UD PRN; Protocol PRN Reason: Hypoglycemia Protocol Stop: 08/08/19 14:44 Insulin Aspart (Novolog Flexpen) 0 units SC ACHS [facility] Stop: 08/08/19 16:29 Last Admin: 07/13/19 08:23 Dose: 2 units Documented by: Insulin Glargine (Lantus Solostar Pen) 0 - 15 units SC BID [facility]; Protocol Stop: 08/08/19 20:59 Last Admin: 07/13/19 08:25 Dose: Not Given Documented by: Levothyroxine Sodium (Synthroid) 175 mcg PO Th@0630 [facility] Stop: 08/12/19 06:29 Last Admin: 07/13/19 06:08 Dose: 175 mcg Documented by: Levothyroxine Sodium (Synthroid) 200 mcg PO SuMoTuWeFrSa@0630 [facility] Stop: 08/08/19 13:29 Last Admin: 07/12/19 05:48 Dose: 200 mcg Documented by: Lisinopril (Zestril) 40 mg PO DAILY [facility] Stop: 08/09/19 08:59 Last Admin: 07/13/19 08:21 Dose: Not Given Documented by: Magnesium Oxide (Mag-Ox) 400 mg PO TID [facility] Stop: 08/08/19 13:59 Last Admin: 07/13/19 08:21 Dose: 400 mg Documented by: Miscellaneous (Carbohydrates For Hypoglycemia) 15 - 30 gm PO UD PRN PRN Reason: Hypoglycemia Treatment Stop: 08/08/19 14:44 Miscellaneous (Order Awaiting Action) 1 ea N/A QS [facility] Stop: 08/11/19 15:59 Last Admin: 07/13/19 08:22 Dose: Not Given Documented by: Montelukast Sodium (Singulair) 10 mg PO QAM [facility] Stop: 08/09/19 08:59 Last Admin: 07/13/19 08:20 Dose: 10 mg Documented by: Oxymetazoline HCl (Afrin 0.05%) 2 sprays CALVIN PREOP [facility] Last Admin: 07/13/19 04:45 Dose: Not Given Documented by: Potassium Chloride (Klor-Con M10) 10 meq PO QAM [facility] Stop: 08/12/19 08:59 Last Admin: 07/13/19 08:20 Dose: 10 meq Documented by: Vitamin D (Vitamin D3) 5,000 units PO Hernandes@0900 [facility] Stop: 08/15/19 08:59 Warfarin Sodium (Coumadin) 10 mg PO SuMoTuWeFrSa@1600 [facility] Stop: 08/11/19 15:59 Last Admin: 07/12/19 17:16 Dose: 10 mg Documented by: (1) Anemia Anemia type: unspecified type Qualified Code(s): D64.9 - Anemia, unspecified
--- NOTE | 2019-07-13 15:05 | Cardiology Progress Note ---
Date of Service July 13, 2019 Assessment & Plan (1) Hemoptysis: (2) Anemia: (3) Diabetes mellitus type 2, controlled: (4) Atrial fibrillation: (5) History of mitral valve replacement with mechanical valve: (6) Pacemaker: (7) Pneumonitis: It is always a risk versus benefit when to restart anticoagulation in this situation. The patient is still having small amounts of hemoptysis which occurred earlier this morning. She is profoundly anemic due to blood loss and requiring blood transfusions. At this point I would recommend holding off on anticoagulation and reassessing tomorrow and on a day by day basis. Subjective The patient had a small amount of hemoptysis this morning. Her hemoglobin is 6.8 and she is receiving blood transfusions. Otherwise she is stable and has no new complaints. Review of Systems Review of Systems: All systems reviewed & are unremarkable except as noted in HPI & below Nothing additional. Physical Exam Physical Exam: General: no acute distress and stated age Head: normocephalic, no masses, lesions, tenderness or abnormalities Eyes: conjunctiva are pink and non-injected, sclera clear Neck: supple, no adenopathy, no bruits, normal jugular venous pulse, no hepatojugular reflux Chest: normal shape and normal respiratory effort Lungs: clear to auscultation and percussion Cardiac Exam: - regular rate & rhythm, no murmurs gallops or rubs -mechanical S1, normal S2 Pulses: 2(+) throughout Abdomen: abdomen soft, non-tender, no abnormal masses and no hepatosplenomegaly Musculoskeletal: no gait disturbance, no joint inflammation, no deforming arthritis Extremities: no edema and no cyanosis Neuro: grossly normal exam Results & Data Vital Signs (Past 12 Hours) Vital Signs Temp Pulse Pulse Pulse Resp BP BP 07/13/19 14:42 36.6 C 82 18 114/70 07/13/19 13:44 36.8 C 63 18 101/62 07/13/19 12:44 36.5 C 72 20 95/58 L 07/13/19 12:15 36.5 C 72 18 107/70 07/13/19 12:00 36.6 C 62 18 97/56 L 07/13/19 11:42 36.9 C 62 18 88/54 L 07/13/19 10:58 36.7 C 65 18 85/55 L 07/13/19 10:14 36.7 C 66 66 18 99/55 L 92/55 L 07/13/19 09:14 36.3 C L 61 18 87/56 L 07/13/19 08:44 36.5 C 62 18 88/55 L 07/13/19 08:29 36.9 C 64 18 86/52 L 07/13/19 08:12 36.7 C 62 18 89/47 L 07/13/19 06:44 36.7 C 84 20 99/64 L 07/13/19 04:45 36.7 C 72 20 112/69 Pulse Ox 07/13/19 14:42 94 07/13/19 13:44 95 07/13/19 12:44 96 07/13/19 12:15 95 07/13/19 12:00 93 07/13/19 11:42 97 07/13/19 10:58 96 07/13/19 10:14 96 07/13/19 09:14 97 07/13/19 08:44 97 07/13/19 08:29 95 07/13/19 08:12 98 07/13/19 06:44 90 07/13/19 04:45 94 Laboratory Results Laboratory Results - last 24 hr 07/12/19 07/12/19 07/12/19 07:29 16:08 18:05 WBC RBC Hgb 7.3 L Hct 23.4 L MCV MCH MCHC RDW Std Deviation RDW Coeff of Praveena Plt Count MPV Immature Gran % (Auto) Neut % (Auto) Lymph % (Auto) [place] % (Auto) Eos % (Auto) Baso % (Auto) Immature Gran # (Auto) Neut # (Auto) Lymph # (Auto) [place] # (Auto) Eos # (Auto) Baso # (Auto) Polychromasia PT INR APTT PTT Ratio Sodium Potassium Chloride Carbon Dioxide Anion Gap BUN Creatinine Est Cr Clr Drug Dosing Est GFR ( Amer) Est GFR (Non-Af Amer) BUN/Creatinine Ratio Glucose POC Glucose 97 Calcium Magnesium Blood Type O Positive Antibody Screen NEGATIVE Crossmatch See Detail 07/12/19 07/12/19 07/13/19 18:05 20:30 05:48 WBC RBC Hgb Hct MCV MCH MCHC RDW Std Deviation RDW Coeff of Praveena Plt Count MPV Immature Gran % (Auto) Neut % (Auto) Lymph % (Auto) [place] % (Auto) Eos % (Auto) Baso % (Auto) Immature Gran # (Auto) Neut # (Auto) Lymph # (Auto) [place] # (Auto) Eos # (Auto) Baso # (Auto) Polychromasia PT 13.9 H INR 1.4 H APTT 53.5 H* PTT Ratio 2.0 Sodium Potassium Chloride Carbon Dioxide Anion Gap BUN Creatinine Est Cr Clr Drug Dosing Est GFR ( Amer) Est GFR (Non-Af Amer) BUN/Creatinine Ratio Glucose POC Glucose 117 H Calcium Magnesium Blood Type Antibody Screen Crossmatch 07/13/19 07/13/19 07/13/19 05:48 05:48 05:48 WBC 9.51 RBC 2.46 L Hgb 6.8 L* Hct 21.8 L MCV 88.6 MCH 27.6 MCHC 31.2 L RDW Std Deviation 51.8 H RDW Coeff of Praveena 16.1 H Plt Count 278 MPV 9.2 Immature Gran % (Auto) 0.9 Neut % (Auto) 56.8 Lymph % (Auto) 20.0 [place] % (Auto) 8.3 Eos % (Auto) 12.9 Baso % (Auto) 1.1 Immature Gran # (Auto) 0.09 H Neut # (Auto) 5.40 Lymph # (Auto) 1.90 [place] # (Auto) 0.79 H Eos # (Auto) 1.23 H Baso # (Auto) 0.10 Polychromasia 1+ PT INR APTT 62.6 H* PTT Ratio 2.3 Sodium 141 Potassium 4.2 Chloride 108 H Carbon Dioxide 26 Anion Gap 7.0 BUN 29 H Creatinine 0.87 Est Cr Clr Drug Dosing 80.2 Est GFR ( Amer) 85.1 Est GFR (Non-Af Amer) 73.4 BUN/Creatinine Ratio 33.2 H Glucose 103 H POC Glucose Calcium 8.4 L Magnesium 2.0 Blood Type Antibody Screen Crossmatch 07/13/19 07/13/19 07:24 11:20 WBC RBC Hgb Hct MCV MCH MCHC RDW Std Deviation RDW Coeff of Praveena Plt Count MPV Immature Gran % (Auto) Neut % (Auto) Lymph % (Auto) [place] % (Auto) Eos % (Auto) Baso % (Auto) Immature Gran # (Auto) Neut # (Auto) Lymph # (Auto) [place] # (Auto) Eos # (Auto) Baso # (Auto) Polychromasia PT INR APTT PTT Ratio Sodium Potassium Chloride Carbon Dioxide Anion Gap BUN Creatinine Est Cr Clr Drug Dosing Est GFR ( Amer) Est GFR (Non-Af Amer) BUN/Creatinine Ratio Glucose POC Glucose 118 H 114 H Calcium Magnesium Blood Type Antibody Screen Crossmatch Medications Administered Current Inpatient Medications Acetaminophen (Tylenol) 650 mg PO Q4H PRN PRN Reason: Pain or Fever Stop: 08/08/19 12:44 Albuterol (Ventolin Hfa) 2 puffs INH Q6H PRN PRN Reason: Shortness Of Breath Or Wheezin Allopurinol (Zyloprim) 300 mg PO HS JENELLE Stop: 08/08/19 20:59 Last Admin: 07/12/19 20:58 Dose: 300 mg Documented by: Benzonatate (Tessalon Perle) 100 mg PO TID PRN PRN Reason: Cough Stop: 08/11/19 14:06 Calcium Carbonate (Os-Patrice 500) 500 mg PO BID JENELLE Stop: 08/11/19 20:59 Last Admin: 07/13/19 08:21 Dose: 500 mg Documented by: Carvedilol (Coreg) 12.5 mg PO BID JENELLE Stop: 08/08/19 20:59 Last Admin: 07/13/19 08:26 Dose: Not Given Documented by: Cyanocobalamin (Vitamin B-12) 1,000 mcg PO HS JENELLE Stop: 08/11/19 20:59 Last Admin: 07/12/19 20:56 Dose: 1,000 mcg Documented by: Dextrose (Dextrose 50%) 25 - 50 ml IV UD PRN; Protocol PRN Reason: Hypoglycemia Protocol Stop: 08/08/19 14:44 Ferrous Sulfate (Feosol) 325 mg PO TIDM JENEL[facility] Stop: 08/11/19 16:59 Last Admin: 07/13/19 11:47 Dose: 325 mg Documented by: Furosemide (Lasix) 40 mg PO QAM [facility] Stop: 08/11/19 14:14 Last Admin: 07/13/19 10:50 Dose: Not Given Documented by: Glucagon (Glucagen) 1 mg IM UD PRN; Protocol PRN Reason: Hypoglycemia Protocol Stop: 08/08/19 14:44 Glucose (Glucose 40%) 15 - 30 gm PO UD PRN; Protocol PRN Reason: Hypoglycemia Protocol Stop: 08/08/19 14:44 Glucose (Dex4 Glucose) 4 - 8 tabs PO UD PRN; Protocol PRN Reason: Hypoglycemia Protocol Stop: 08/08/19 14:44 Insulin Aspart (Novolog Flexpen) 0 units SC ACHS [facility] Stop: 08/08/19 16:29 Last Admin: 07/13/19 14:33 Dose: 2 units Documented by: Insulin Glargine (Lantus Solostar Pen) 0 - 15 units SC BID [facility]; Protocol Stop: 08/08/19 20:59 Last Admin: 07/13/19 08:25 Dose: Not Given Documented by: Levothyroxine Sodium (Synthroid) 175 mcg PO Th@0630 [facility] Stop: 08/12/19 06:29 Last Admin: 07/13/19 06:08 Dose: 175 mcg Documented by: Levothyroxine Sodium (Synthroid) 200 mcg PO SuMoTuWeFrSa@0630 [facility] Stop: 08/08/19 13:29 Last Admin: 07/12/19 05:48 Dose: 200 mcg Documented by: Lisinopril (Zestril) 40 mg PO DAILY [facility] Stop: 08/09/19 08:59 Last Admin: 07/13/19 08:21 Dose: Not Given Documented by: Magnesium Oxide (Mag-Ox) 400 mg PO TID [facility] Stop: 08/08/19 13:59 Last Admin: 07/13/19 14:35 Dose: 400 mg Documented by: Miscellaneous (Carbohydrates For Hypoglycemia) 15 - 30 gm PO UD PRN PRN Reason: Hypoglycemia Treatment Stop: 08/08/19 14:44 Miscellaneous (Order Awaiting Action) 1 ea N/A QS [facility] Stop: 08/11/19 15:59 Last Admin: 07/13/19 08:22 Dose: Not Given Documented by: Montelukast Sodium (Singulair) 10 mg PO QAM [facility] Stop: 08/09/19 08:59 Last Admin: 07/13/19 08:20 Dose: 10 mg Documented by: Oxymetazoline HCl (Afrin 0.05%) 2 sprays CALVIN PREOP [facility] Last Admin: 07/13/19 04:45 Dose: Not Given Documented by: Potassium Chloride (Klor-Con M10) 10 meq PO QAM [facility] Stop: 08/12/19 08:59 Last Admin: 07/13/19 08:20 Dose: 10 meq Documented by: Vitamin D (Vitamin D3) 5,000 units PO Hernadnes@0900 [facility] Stop: 08/15/19 08:59 Warfarin Sodium (Coumadin) 10 mg PO SuMoTuWeFrSa@1600 [facility] Stop: 08/11/19 15:59 Last Admin: 07/12/19 17:16 Dose: 10 mg Documented by: (1) Anemia Anemia type: unspecified type Qualified Code(s): D64.9 - Anemia, unspecified
[2019-07-13] MEDS ORDERED: WARFARIN SOD 2 MG TAB PO SCH (16:00)
[2019-07-13] MEDS ORDERED: WARFARIN SOD 10 MG TAB PO SCH (16:00)
[2019-07-13 20:29] LABS: Legionella pneumoph IgM, IFA <1:256 TITER; Mycoplasma pneumoniae Ab, IgM 939 U/mL (<770)
[2019-07-13] MEDS: allopurinoL 300 MG TAB PO SCH (21:47)
[2019-07-13] MEDS: CYANOCOBALAMIN 500 MCG TABLET (VITAMIN B-12) PO SCH (21:50)
[2019-07-14 04:05] LABS: Basophils % (auto) 1.1 %; Eosinophils # (auto) 1.22 K/uL (0-0.5); Hematocrit (blood only) 27.1 % (37-47); Hemoglobin 8.7 g/dL (12.0-16.0); Immature Granulocytes % (auto) 1.1 %; Lymphocytes # (auto) 1.53 K/uL (1.2-3.4); Lymphocytes % (auto) 16.3 %; Mean Corpuscular Hemoglobin 27.5 pg (25-34); Mean Corpuscular Hgb Conc 32.1 g/dL (32-36); Mean Corpuscular Volume 85.8 fL (80-100); Mean Platelet Volume 9.5 fL (7.4-10.4); Monocytes # (auto) 0.73 K/uL (0.11-0.59); Monocytes % (auto) 7.8 %; Neutrophils # (auto) 5.68 K/uL (1.4-6.5); Neutrophils % (auto) 60.7 %; Platelet Count 268 K/uL (130-400); RDW Standard Deviation 49.8 fL (36.4-46.3); Red Blood Count 3.16 M/uL (4.2-5.4); White Blood Count 9.36 K/uL (4.8-10.8)
[2019-07-14 04:17] LABS: INR 1.3 (0.9-1.1); Partial Thromboplastin Ratio 1.2; Partial Thromboplastin Time 32.5 Seconds (21.0-31.0); Prothrombin Time 13.5 Seconds (9.0-12.0)
[2019-07-14 04:21] LABS: BUN Creatinine Ratio 27.7 (10-20); Calcium 8.3 mg/dl (8.5-10.1); Creatinine Clr Calc Pharmacy 85.1 ml/min; Est GFR (African American) 91.4; Est GFR (Non-African American) 78.9; Potassium 4.2 mmol/L (3.5-5.1)
[2019-07-14] MEDS: LEVOTHYROXINE SODIUM 200 MCG TABLET PO SCH (05:36)
[2019-07-14] MEDS: OXYMETAZOLINE 0.05% 30 ML BTL NAE SCH (07:39)
[2019-07-14] MEDS: CALCIUM CARBONATE 1250MG TAB PO SCH ×2 (08:35→20:39)
[2019-07-14] MEDS: carvediloL 12.5 MG TAB PO SCH ×2 (08:35→20:39)
[2019-07-14] MEDS: POTASSIUM CHLORIDE 10 MEQ TABCR PO SCH (08:35)
[2019-07-14] MEDS: MONTELUKAST SODIUM 10 MG TABLET PO SCH (08:36)
[2019-07-14] MEDS: FUROSEMIDE 40 MG TAB PO SCH (08:36)
[2019-07-14] MEDS: MAGNESIUM OXIDE 400 MG TAB PO SCH ×3 (08:36→20:40)
[2019-07-14] MEDS: FERROUS SULFATE 325 MG TAB PO SCH ×3 (08:36→17:46)
[2019-07-14] MEDS: lisinopriL 40 MG TAB PO SCH (08:36)
[2019-07-14] MEDS: INSULIN GLARGINE SOLOSTAR 100 UNITS/ML 3 ML PEN SC SCH ×2 (08:37→20:43)
[2019-07-14] MEDS: INSULIN ASPART 100 UNITS/ML 3 ML PEN SC SCH ×4 (08:38→20:42)
[2019-07-14] MEDS ORDERED: Heparin IV Standard *NO* Bolus IV ONE (09:59)
--- NOTE | 2019-07-14 10:08 | Cardiology Progress Note ---
Date of Service July 14, 2019 Assessment & Plan (1) Hemoptysis: (2) Anemia: (3) Diabetes mellitus type 2, controlled: (4) Atrial fibrillation: (5) History of mitral valve replacement with mechanical valve: (6) Pacemaker: (7) Pneumonitis: The plan today is to start heparin without a bolus. Also the patient can resume her warfarin. Subjective The patient had an uneventful night. No additional hemoptysis since early yesterday morning. Review of Systems Review of Systems: All systems reviewed & are unremarkable except as noted in HPI & below Nothing additional. Physical Exam Physical Exam: General: no acute distress and stated age Head: normocephalic, no masses, lesions, tenderness or abnormalities Eyes: conjunctiva are pink and non-injected, sclera clear Neck: supple, no adenopathy, no bruits, normal jugular venous pulse, no hep atojugular reflux Chest: normal shape and normal respiratory effort Lungs: clear to auscultation and percussion Cardiac Exam: - regular rate & rhythm, no murmurs gallops or rubs -mechanical S1, normal S2 Pulses: 2(+) throughout Abdomen: abdomen soft, non-tender, no abnormal masses and no hepatosplenomegaly Musculoskeletal: no gait disturbance, no joint inflammation, no deforming arthritis Extremities: no edema and no cyanosis Neuro: grossly normal exam Results & Data Vital Signs (Past 12 Hours) Vital Signs Temp Pulse Resp BP BP Pulse Ox 07/14/19 06:44 36.7 C 68 22 113/72 94 07/14/19 03:33 94 07/14/19 03:03 36.8 C 66 20 114/57 L 07/13/19 23:52 36.7 C 63 20 112/63 91 Laboratory Results Laboratory Results - last 24 hr 07/09/19 07/09/19 07/12/19 16:13 16:13 07:29 WBC RBC Hgb Hct MCV MCH MCHC RDW Std Deviation RDW Coeff of Praveena Plt Count MPV Immature Gran % (Auto) Neut % (Auto) Lymph % (Auto) [place] % (Auto) Eos % (Auto) Baso % (Auto) Immature Gran # (Auto) Neut # (Auto) Lymph # (Auto) [place] # (Auto) Eos # (Auto) Baso # (Auto) PT INR APTT PTT Ratio Sodium Potassium Chloride Carbon Dioxide Anion Gap BUN Creatinine Est Cr Clr Drug Dosing Est GFR ( Amer) Est GFR (Non-Af Amer) BUN/Creatinine Ratio Glucose POC Glucose Calcium Glomerular Base Memb Ab <1.0 L.pneumophila IgM Ab <1:256 Mycoplasma pneumon IgM 939 H Blood Type O Positive Antibody Screen NEGATIVE Crossmatch See Detail 07/13/19 07/13/19 07/13/19 11:20 16:37 20:36 WBC RBC Hgb Hct MCV MCH MCHC RDW Std Deviation RDW Coeff of Praveena Plt Count MPV Immature Gran % (Auto) Neut % (Auto) Lymph % (Auto) [place] % (Auto) Eos % (Auto) Baso % (Auto) Immature Gran # (Auto) Neut # (Auto) Lymph # (Auto) [place] # (Auto) Eos # (Auto) Baso # (Auto) PT INR APTT PTT Ratio Sodium Potassium Chloride Carbon Dioxide Anion Gap BUN Creatinine Est Cr Clr Drug Dosing Est GFR ( Amer) Est GFR (Non-Af Amer) BUN/Creatinine Ratio Glucose POC Glucose 114 H 91 118 H Calcium Glomerular Base Memb Ab L.pneumophila IgM Ab Mycoplasma pneumon IgM Blood Type Antibody Screen Crossmatch 07/14/19 07/14/19 07/14/19 03:49 03:49 03:49 WBC 9.36 RBC 3.16 L Hgb 8.7 L Hct 27.1 L MCV 85.8 MCH 27.5 MCHC 32.1 RDW Std Deviation 49.8 H RDW Coeff of Praveena 16.0 H Plt Count 268 MPV 9.5 Immature Gran % (Auto) 1.1 Neut % (Auto) 60.7 Lymph % (Auto) 16.3 [place] % (Auto) 7.8 Eos % (Auto) 13.0 Baso % (Auto) 1.1 Immature Gran # (Auto) 0.10 H Neut # (Auto) 5.68 Lymph # (Auto) 1.53 [place] # (Auto) 0.73 H Eos # (Auto) 1.22 H Baso # (Auto) 0.10 PT 13.5 H INR 1.3 H APTT 32.5 H PTT Ratio 1.2 Sodium 139 Potassium 4.2 Chloride 109 H Carbon Dioxide 26 Anion Gap 4.0 BUN 23 H Creatinine 0.82 Est Cr Clr Drug Dosing 85.1 Est GFR ( Amer) 91.4 Est GFR (Non-Af Amer) 78.9 BUN/Creatinine Ratio 27.7 H Glucose 95 POC Glucose Calcium 8.3 L Glomerular Base Memb Ab L.pneumophila IgM Ab Mycoplasma pneumon IgM Blood Type Antibody Screen Crossmatch 07/14/19 07:20 WBC RBC Hgb Hct MCV MCH MCHC RDW Std Deviation RDW Coeff of Praveena Plt Count MPV Immature Gran % (Auto) Neut % (Auto) Lymph % (Auto) [place] % (Auto) Eos % (Auto) Baso % (Auto) Immature Gran # (Auto) Neut # (Auto) Lymph # (Auto) [place] # (Auto) Eos # (Auto) Baso # (Auto) PT INR APTT PTT Ratio Sodium Potassium Chloride Carbon Dioxide Anion Gap BUN Creatinine Est Cr Clr Drug Dosing Est GFR ( Amer) Est GFR (Non-Af Amer) BUN/Creatinine Ratio Glucose POC Glucose 112 H Calcium Glomerular Base Memb Ab L.pneumophila IgM Ab Mycoplasma pneumon IgM Blood Type Antibody Screen Crossmatch Medications Administered Current Inpatient Medications Acetaminophen (Tylenol) 650 mg PO Q4H PRN PRN Reason: Pain or Fever Stop: 08/08/19 12:44 Albuterol (Ventolin Hfa) 2 puffs INH Q6H PRN PRN Reason: Shortness Of Breath Or Wheezin Allopurinol (Zyloprim) 300 mg PO HS JENELLE Stop: 08/08/19 20:59 Last Admin: 07/13/19 21:47 Dose: 300 mg Documented by: Benzonatate (Tessalon Perle) 100 mg PO TID PRN PRN Reason: Cough Stop: 08/11/19 14:06 Calcium Carbonate (Os-Patrice 500) 1,250 mg PO BID JENELLE Stop: 08/11/19 20:59 Last Admin: 07/14/19 08:35 Dose: 1,250 mg Documented by: Carvedilol (Coreg) 12.5 mg PO BID JENEL[facility] Stop: 08/08/19 20:59 Last Admin: 07/14/19 08:35 Dose: 12.5 mg Documented by: Cyanocobalamin (Vitamin B-12) 1,000 mcg PO HS JENELLE Stop: 08/11/19 20:59 Last Admin: 07/13/19 21:50 Dose: 1,000 mcg Documented by: Dextrose (Dextrose 50%) 25 - 50 ml IV UD PRN; Protocol PRN Reason: Hypoglycemia Protocol Stop: 08/08/19 14:44 Ferrous Sulfate (Feosol) 325 mg PO TIDM [facility] Stop: 08/11/19 16:59 Last Admin: 07/14/19 08:36 Dose: 325 mg Documented by: Furosemide (Lasix) 40 mg PO QAM [facility] Stop: 08/11/19 14:14 Last Admin: 07/14/19 08:36 Dose: 40 mg Documented by: Glucagon (Glucagen) 1 mg IM UD PRN; Protocol PRN Reason: Hypoglycemia Protocol Stop: 08/08/19 14:44 Glucose (Glucose 40%) 15 - 30 gm PO UD PRN; Protocol PRN Reason: Hypoglycemia Protocol Stop: 08/08/19 14:44 Glucose (Dex4 Glucose) 4 - 8 tabs PO UD PRN; Protocol PRN Reason: Hypoglycemia Protocol Stop: 08/08/19 14:44 Heparin Sodium/Dextrose (Heparin Sodium/Dextrose) 25,000 units in 500 mls @ 26 mls/hr IV .[id number] [facility]; Protocol Stop: 08/13/19 10:14 Insulin Aspart (Novolog Flexpen) 0 units SC ACHS [facility] Stop: 08/08/19 16:29 Last Admin: 07/14/19 08:38 Dose: 2 units Documented by: Insulin Glargine (Lantus Solostar Pen) 0 - 15 units SC BID [facility]; Protocol Stop: 08/08/19 20:59 Last Admin: 07/14/19 08:37 Dose: Not Given Documented by: Levothyroxine Sodium (Synthroid) 175 mcg PO Th@0630 [facility] Stop: 08/12/19 06:29 Last Admin: 07/13/19 06:08 Dose: 175 mcg Documented by: Levothyroxine Sodium (Synthroid) 200 mcg PO SuMoTuWeFrSa@0630 [facility] Stop: 08/08/19 13:29 Last Admin: 07/14/19 05:36 Dose: 200 mcg Documented by: Lisinopril (Zestril) 40 mg PO DAILY [facility] Stop: 08/09/19 08:59 Last Admin: 07/14/19 08:36 Dose: 40 mg Documented by: Magnesium Oxide (Mag-Ox) 400 mg PO TID [facility] Stop: 08/08/19 13:59 Last Admin: 07/14/19 08:36 Dose: 400 mg Documented by: Miscellaneous (Carbohydrates For Hypoglycemia) 15 - 30 gm PO UD PRN PRN Reason: Hypoglycemia Treatment Stop: 08/08/19 14:44 Miscellaneous (Order Awaiting Action) 1 ea N/A QS [facility] Stop: 08/11/19 15:59 Last Admin: 07/14/19 08:39 Dose: Not Given Documented by: Montelukast [facility]odium ([facility]ul[facility]) [facility] [place] Stop: 08/09/19 08:59 Last Admin: 07/14/19 08:36 Dose: 10 mg Documented by: Oxymetazoline HCl (Afrin 0.05%) 2 sprays CALVIN PREOP [facility] Last Admin: 07/14/19 07:39 Dose: Not Given Documented by: Potassium Chloride (Klor-Con M10) [facility]q [facility] [place] Stop: 08/12/19 08:59 Last Admin: 07/14/19 08:35 Dose: 10 meq Documented by: Vitamin D (Vitamin D3) 5,000 units PO Hernandes@0900 [facility] Stop: 08/15/19 08:59 Warfarin Sodium (Coumadin) 10 mg PO SuMoTuWeFrSa@1600 [facility] Stop: 08/11/19 15:59 Last Admin: 07/12/19 17:16 Dose: 10 mg Documented by: (1) Anemia Anemia type: unspecified type Qualified Code(s): D64.9 - Anemia, unspecified
[2019-07-14] MEDS: HEPARIN SODIUM/DEXTROSE 25,000 UNITS/500 ML BAG IV SCH (11:24)
--- NOTE | 2019-07-14 11:35 | Hospitalist Progress Note ---
Date of Service July 14, 2019 Assessment & Plan (1) Hypoxia: Presented on admission with worsening SOB with O2 saturation as low as 87% on RA. Secondary to extensive bilateral airspace opacities :CT chest showed extensive bilateral airspace opacities within the lungs. CXR showed no significant change in bilateral central predominant pulmonary infiltrates, right greater than left. ProBNP and procalcitonin, Influenza PCR negative ECHO done showed no wall motion abnormality. EF 55 to 60% Received 2 units of PRBC on 07/12 She has been feeling not better following blood transfusion We will get a nocturnal pulse oximetry and to a step O2 saturation before discharge (2) Abnormal chest xray: As above Chest x-ray suggests pulmonary edema +/- bilat infiltrates. No sign of fluid overload Elevated ESR and C-reactive Immunology studies including RF, ANJUM, anti-proteinase, ANCA, GBM, anti- myeloperoxidase are pending To rule out any hematological condition causing this inflammatory lung disease Appreciate pulmonary input and recommendation Status post bronchoscopy today 07/12-showed alveolar hemorrhage but no acute endobronchial hemorrhage (3) Hemoptysis: On Coumadin with INR on admission above 6 No Vit K given due to her history of mechanical valve Pulmonary consult INR went down to 1.5 today and she has had bronchoscopy Did show possible alveolar hemorrhage with normal bronchial tree as well as the endoscope allowed No more hemoptysis since last Continues to have minimal hemoptysis Discussed with freight dispatcher and will hold off any anticoagulation at this time No more hemoptysis and she has been feeling a lot better Heparin without bolus and Coumadin will be started today No benefit of using steroid for alveolar hemorrhage (4) Anemia: Acute blood loss anemia secondary to alveolar hemorrhage and hemoptysis Hgb on 07/02 was 10 Hemoglobin dropped to 6.8 today and repeat check showed 7.4 Likely has chronic anemia and is complicated by episode of alveolar hemorrhage Iron studies is suggestive of iron, vitamin B12 and folate level and TSH within normal range Has been started on oral iron Hemoglobin dropped to 6.8 and she will receive 2 units of blood transfusion today Hemoglobin 8.7 this morning (5) Atrial fibrillation: Rate control Continue carvedilol and warfarin. Coumadin on hold due hemoptysis Starting on heparin drip Will hold heparin drip in am for Bronch Check PT/INR We will hold off anticoagulation for a day or 2 (6) History of mitral valve replacement with mechanical valve: S/P MVR 18 years ago with mechanical valve. Heparin and Coumadin have been restarted Risk of clotting is high without anticoagulation She is aware about it but she does not want to go for any further surgery on the heart Will start heparin without bolus and Coumadin (7) Diabetes mellitus type 2, controlled: Hba1c 5.4 Metformin on hold during hospital stay Continue Lantus and insulin sliding scale Monitor BS (8) Hypothyroidism: Continue current dose of levothyroxine. TSH normal (9) Gout: No recent flares. Continue allopurinol. (10) Vitamin B12 deficiency: B12 elevated On B12 supplement (11) DVT prophylaxis: Coumadin on hold due to INR On Heparin drip (12) Discharge planning issues: Primary care follow-up with Dr. To. Cardiology follow-up with Dr. Gallardo. We will continue current treatment Likely discharge in a day or 2 Subjective 07/12 The patient was seen and examined in telemetry unit He is a status post bronchoscopy Has been feeling much better following bronchoscopic evaluation Denies any hemoptysis since last night Denies any chest pain and/or palpitation or any shortness of breath 07/13 Patient was seen and examined in telemetry unit She has had hemoptysis again this morning Otherwise she has been feeling a lot better since admission Her hemoglobin went down to 6.8 Remains shortness of breath minimally at rest and worse with exertion 07/14 The patient was seen and examined in telemetry unit She has been feeling a lot better with less cough, no hemoptysis and no shortness of breath at rest Denies any chest pain and/or palpitation Has been ambulating reasonably well Review of Systems Review of Systems: All systems reviewed and unremarkable except as noted below Constitutional: + malaise and + weight gain (wt fluctuates) Respiratory: + cough and + dyspnea on exertion Gastrointestinal: no nausea, no vomiting, no constipation, no blood in stools and no melena Musculoskeletal: + joint pain Neurologic: + generalized weakness Endocrine: blood sugars well controlled, usually in low-mid 100's Physical Exam Physical Exam: Lying in bed comfortably Constitutional: well developed, well nourished and + obese; no acute distress and not ill appearing Eyes: PERRL, conjunctivae normal, anicteric sclerae ENMT: external ear and nose normal, oropharynx normal Neck: trachea midline, no thyromegaly Respiratory: normal respiratory effort and + cough; no respiratory distress Auscultation: + diminished lung sounds (At the bases) Cardiovascular: Rate/Rhythm: regular rate Heart Sounds: + murmur (mechanical valve sounds in mitral position with II/ systolic murmur); no gallop and no cardiac rub Vessels: normal peripheral pulses and dorsalis pedis pulses present; no JVD Extremities: normal capillary refill and + edema (trace pretibial); no calf tenderness Gastrointestinal (Abdomen): Inspection/Auscultation: abdomen normal to inspection and normal bowel sounds Percussion/Palpation: abdomen soft Musculoskeletal: Head/Neck/Chest: neck supple Extremities: strength 5/5 throughout; no cyanosis and no clubbing Skin: no rashes, warm and dry Neurologic: moves all extremities; no focal motor deficits Psychiatric: Orientation: alert and oriented x 3 Affect: euthymic affect Lymphatic: no cervical or axillary lymphadenopathy no cervical lymphaden opathy Results & Data Vital Signs (Past 12 Hours) Vital Signs Temp Pulse Resp BP BP Pulse Ox 07/14/19 11:15 36.6 C 88 18 100/57 L 91 07/14/19 06:44 36.7 C 68 22 113/72 94 07/14/19 03:33 94 07/14/19 03:03 36.8 C 66 20 114/57 L 07/13/19 23:52 36.7 C 63 20 112/63 91 Laboratory Results Short CBC 07/14/19 Range/Units 03:49 WBC 9.36 (4.8-10.8) K/uL Hgb 8.7 L (12.0-16.0) g/dL Hct 27.1 L (37-47) % Plt Count 268 (130-400) K/uL BMP 07/14/19 03:49 Sodium 139 Potassium 4.2 Chloride 109 H Carbon Dioxide 26 BUN 23 H Creatinine 0.82 Glucose 95 Calcium 8.3 L Medications Administered Current Inpatient Medications Acetaminophen (Tylenol) 650 mg PO Q4H PRN PRN Reason: Pain or Fever Stop: 08/08/19 12:44 Albuterol (Ventolin Hfa) 2 puffs INH Q6H PRN PRN Reason: Shortness Of Breath Or Wheezin Allopurinol (Zyloprim) 300 mg PO HS [facility] Stop: 08/08/19 20:59 Last Admin: 07/13/19 21:47 Dose: 300 mg Documented by: Benzonatate (Tessalon Perle) 100 mg PO TID PRN PRN Reason: Cough Stop: 08/11/19 14:06 Calcium Carbonate (Os-Patrice 500) 1,250 mg PO BID [facility] Stop: 08/11/19 20:59 Last Admin: 07/14/19 08:35 Dose: 1,250 mg Documented by: Carvedilol (Coreg) 12.5 mg PO BID [facility] Stop: 08/08/19 20:59 Last Admin: 07/14/19 08:35 Dose: 12.5 mg Documented by: Cyanocobalamin (Vitamin B-12) 1,000 mcg PO HS [facility] Stop: 08/11/19 20:59 Last Admin: 07/13/19 21:50 Dose: 1,000 mcg Documented by: Dextrose (Dextrose 50%) 25 - 50 ml IV UD PRN; Protocol PRN Reason: Hypoglycemia Protocol Stop: 08/08/19 14:44 Ferrous Sulfate (Feosol) 325 mg PO TIDM [facility] Stop: 08/11/19 16:59 Last Admin: 07/14/19 08:36 Dose: 325 mg Documented by: Furosemide (Lasix) 40 mg PO QAM [facility] Stop: 08/11/19 14:14 Last Admin: 07/14/19 08:36 Dose: 40 mg Documented by: Glucagon (Glucagen) 1 mg IM UD PRN; Protocol PRN Reason: Hypoglycemia Protocol Stop: 08/08/19 14:44 Glucose (Glucose 40%) 15 - 30 gm PO UD PRN; Protocol PRN Reason: Hypoglycemia Protocol Stop: 08/08/19 14:44 Glucose (Dex4 Glucose) 4 - 8 tabs PO UD PRN; Protocol PRN Reason: Hypoglycemia Protocol Stop: 08/08/19 14:44 Heparin Sodium/Dextrose (Heparin Sodium/Dextrose) 25,000 units in 500 mls @ 26 mls/hr IV .[id number] [facility]; Protocol Stop: 08/13/19 10:14 Last Admin: 07/14/19 11:24 Dose: 1,300 units/hr, 26 mls/hr Documented by: Insulin Aspart (Novolog Flexpen) 0 units SC ACHS [facility] Stop: 08/08/19 16:29 Last Admin: 07/14/19 08:38 Dose: 2 units Documented by: Insulin Glargine (Lantus Solostar Pen) 0 - 15 units SC BID [facility]; Protocol Stop: 08/08/19 20:59 Last Admin: 07/14/19 08:37 Dose: Not Given Documented by: Levothyroxine Sodium (Synthroid) 175 mcg PO Th@0630 [facility] Stop: 08/12/19 06:29 Last Admin: 07/13/19 06:08 Dose: 175 mcg Documented by: Levothyroxine Sodium (Synthroid) 200 mcg PO SuMoTuWeFrSa@0630 [facility] Stop: 08/08/19 13:29 Last Admin: 07/14/19 05:36 Dose: 200 mcg Documented by: Lisinopril (Zestril) 40 mg PO DAILY [facility] Stop: 08/09/19 08:59 Last Admin: 07/14/19 08:36 Dose: 40 mg Documented by: Magnesium Oxide (Mag-Ox) 400 mg PO TID [facility] Stop: 08/08/19 13:59 Last Admin: 07/14/19 08:36 Dose: 400 mg Documented by: Miscellaneous (Carbohydrates For Hypoglycemia) 15 - 30 gm PO UD PRN PRN Reason: Hypoglycemia Treatment Stop: 08/08/19 14:44 Miscellaneous (Order Awaiting Action) 1 ea N/A QS [facility] Stop: 08/11/19 15:59 Last Admin: 07/14/19 08:39 Dose: Not Given Documented by: Montelukast Sodium (Singulair) 10 mg PO QAM [facility] Stop: 08/09/19 08:59 Last Admin: 07/14/19 08:36 Dose: 10 mg Documented by: Oxymetazoline HCl (Afrin 0.05%) 2 sprays CALVIN PREOP [facility] Last Admin: 07/14/19 07:39 Dose: Not Given Documented by: Potassium Chloride (Klor-Con M10) 10 meq PO QAM [facility] Stop: 08/12/19 08:59 Last Admin: 07/14/19 08:35 Dose: 10 meq Documented by: Vitamin D (Vitamin D3) 5,000 units PO Hernandes@0900 [facility] Stop: 08/15/19 08:59 Warfarin Sodium (Coumadin) 10 mg PO SuMoTuWeFrSa@1600 [facility] Stop: 08/11/19 15:59 Last Admin: 07/12/19 17:16 Dose: 10 mg Documented by: (1) Anemia Anemia type: unspecified type Qualified Code(s): D64.9 - Anemia, unspecified
[2019-07-14] MEDS: WARFARIN SOD 10 MG TAB PO SCH (15:55)
[2019-07-14 18:04] LABS: Partial Thromboplastin Ratio 1.7
[2019-07-14 18:05] LABS: Partial Thromboplastin Time 46.2 Seconds (21.0-31.0)
[2019-07-14] MEDS: CYANOCOBALAMIN 500 MCG TABLET (VITAMIN B-12) PO SCH (20:40)
[2019-07-14] MEDS: allopurinoL 300 MG TAB PO SCH (20:40)
[2019-07-15] MEDS: HEPARIN SODIUM/DEXTROSE 25,000 UNITS/500 ML BAG IV SCH ×2 (03:50→22:17)
[2019-07-15] MEDS: OXYMETAZOLINE 0.05% 30 ML BTL NAE SCH (05:51)
[2019-07-15] MEDS: LEVOTHYROXINE SODIUM 200 MCG TABLET PO SCH (05:51)
[2019-07-15] MEDS ORDERED: SODIUM CHLORIDE 0.65% NA SOLN 45 ML (OCEAN) ONE (05:53)
[2019-07-15] MEDS: FERROUS SULFATE 325 MG TAB PO SCH ×3 (08:10→16:42)
[2019-07-15] MEDS: MAGNESIUM OXIDE 400 MG TAB PO SCH ×3 (08:11→20:44)
[2019-07-15] MEDS: carvediloL 12.5 MG TAB PO SCH ×2 (08:11→20:43)
[2019-07-15] MEDS: lisinopriL 40 MG TAB PO SCH (08:11)
[2019-07-15] MEDS: FUROSEMIDE 40 MG TAB PO SCH (08:11)
[2019-07-15] MEDS: MONTELUKAST SODIUM 10 MG TABLET PO SCH (08:11)
[2019-07-15] MEDS: CALCIUM CARBONATE 1250MG TAB PO SCH ×2 (08:11→20:43)
[2019-07-15] MEDS: INSULIN GLARGINE SOLOSTAR 100 UNITS/ML 3 ML PEN SC SCH ×2 (08:11→21:39)
[2019-07-15] MEDS: POTASSIUM CHLORIDE 10 MEQ TABCR PO SCH (08:11)
[2019-07-15] MEDS: INSULIN ASPART 100 UNITS/ML 3 ML PEN SC SCH ×4 (08:13→21:39)
[2019-07-15 08:36] LABS: Hematocrit (blood only) 31.1 % (37-47); Hemoglobin 9.8 g/dL (12.0-16.0); Mean Corpuscular Hemoglobin 27.1 pg (25-34); Mean Corpuscular Hgb Conc 31.5 g/dL (32-36); Mean Corpuscular Volume 86.1 fL (80-100); Mean Platelet Volume 9.8 fL (7.4-10.4); Platelet Count 282 K/uL (130-400); RDW Standard Deviation 49.4 fL (36.4-46.3); Red Blood Count 3.61 M/uL (4.2-5.4); White Blood Count 9.84 K/uL (4.8-10.8)
[2019-07-15 08:57] LABS: INR 1.4 (0.9-1.1); Prothrombin Time 14.1 Seconds (9.0-12.0)
--- NOTE | 2019-07-15 11:47 | Hospitalist Progress Note ---
Date of Service July 15, 2019 Assessment & Plan (1) Hypoxia: Presented on admission with worsening SOB with O2 saturation as low as 87% on RA. Secondary to extensive bilateral airspace opacities :CT chest showed extensive bilateral airspace opacities within the lungs. CXR showed no significant change in bilateral central predominant pulmonary infiltrates, right greater than left. ProBNP and procalcitonin, Influenza PCR negative ECHO done showed no wall motion abnormality. EF 55 to 60% Received 2 units of PRBC on 07/12 She has been feeling not better following blood transfusion Nocturnal pulse oximetry shows desaturation events Clinically a lot better today Will need to do steps O2 saturation before discharge (2) Abnormal chest xray: As above Chest x-ray suggests pulmonary edema +/- bilat infiltrates. No sign of fluid overload Elevated ESR and C-reactive Immunology studies including RF, ANJUM, anti-proteinase, ANCA, GBM, anti- myeloperoxidase are pending To rule out any hematological condition causing this inflammatory lung disease Appreciate pulmonary input and recommendation Status post bronchoscopy today 07/12-showed alveolar hemorrhage but no acute endobronchial hemorrhage (3) Hemoptysis: On Coumadin with INR on admission above 6 No Vit K given due to her history of mechanical valve Pulmonary consult INR went down to 1.5 today and she has had bronchoscopy Did show possible alveolar hemorrhage with normal bronchial tree as well as the endoscope allowed No more hemoptysis since last Continues to have minimal hemoptysis Discussed with real estate administrator and will hold off any anticoagulation at this time No more hemoptysis and she has been feeling a lot better Heparin without bolus and Coumadin will be started today No benefit of using steroid for alveolar hemorrhage No more hemoptysis for the last 2 days and the lung sounds are much better (4) Anemia: Acute blood loss anemia secondary to alveolar hemorrhage and hemoptysis Hgb on 07/02 was 10 Hemoglobin dropped to 6.8 today and repeat check showed 7.4 Likely has chronic anemia and is complicated by episode of alveolar hemorrhage Iron studies is suggestive of iron, vitamin B12 and folate level and TSH within normal range Has been started on oral iron Hemoglobin dropped to 6.8 and she will receive 2 units of blood transfusion today Hemoglobin 8.7 this morning Hemoglobin went up to 9.8 on 07/15 (5) Atrial fibrillation: Rate control Continue carvedilol and warfarin. Coumadin on hold due hemoptysis Starting on heparin drip Will hold heparin drip in am for Bronch Check PT/INR We will hold off anticoagulation for a day or 2 INR is 1.4 today and will continue heparin for now (6) History of mitral valve replacement with mechanical valve: S/P MVR 18 years ago with mechanical valve. Heparin and Coumadin have been restarted Risk of clotting is high without anticoagulation She is aware about it but she does not want to go for any further surgery on the heart Will start heparin without bolus and Coumadin (7) Diabetes mellitus type 2, controlled: Hba1c 5.4 Metformin on hold during hospital stay Continue Lantus and insulin sliding scale Monitor BS (8) Hypothyroidism: Continue current dose of levothyroxine. TSH normal (9) Gout: No recent flares. Continue allopurinol. (10) Vitamin B12 deficiency: B12 elevated On B12 supplement (11) DVT prophylaxis: Coumadin on hold due to INR On Heparin drip (12) Discharge planning issues: Primary care follow-up with Dr. To. Cardiology follow-up with Dr. Gallardo. We will continue current treatment Likely discharge in a day or 2 Subjective 07/12 The patient was seen and examined in telemetry unit He is a status post bronchoscopy Has been feeling much better following bronchoscopic evaluation Denies any hemoptysis since last night Denies any chest pain and/or palpitation or any shortness of breath 07/13 Patient was seen and examined in telemetry unit She has had hemoptysis again this morning Otherwise she has been feeling a lot better since admission Her hemoglobin went down to 6.8 Remains shortness of breath minimally at rest and worse with exertion 07/14 The patient was seen and examined in telemetry unit She has been feeling a lot better with less cough, no hemoptysis and no shortness of breath at rest Denies any chest pain and/or palpitation Has been ambulating reasonably well 07/15 Patient was seen and examined in telemetry unit She has been feeling a lot better today She has minimal cough without any more hemoptysis She has been ambulating with minimal difficulty of shortness of breath Review of Systems Review of Systems: All systems reviewed and unremarkable except as noted below Constitutional: + malaise and + weight gain (wt fluctuates) Respiratory: + cough Cardiovascular: no chest pain Musculoskeletal: + joint pain Endocrine: blood sugars well controlled, usually in low-mid 100's Physical Exam Physical Exam: Lying in bed without any symptoms Constitutional: well developed, well nourished and + obese; no acute distress and not ill appearing Eyes: PERRL, conjunctivae normal, anicteric sclerae ENMT: external ear and nose normal, oropharynx normal Neck: trachea midline, no thyromegaly Respiratory: normal respiratory effort and + cough; no respiratory distress Auscultation: lungs clear to auscultation bilaterally Cardiovascular: Rate/Rhythm: regular rate Heart Sounds: + murmur (mechanical valve sounds in mitral position with II/ systolic murmur); no gallop and no cardiac rub Vessels: normal peripheral pulses and dorsalis pedis pulses present; no JVD Extremities: normal capillary refill and + edema (trace pretibial); no calf tenderness Gastrointestinal (Abdomen): Inspection/Auscultation: abdomen normal to inspection and normal bowel sounds Percussion/Palpation: abdomen soft Musculoskeletal: Head/Neck/Chest: neck supple Extremities: strength 5/5 throughout; no cyanosis and no clubbing Skin: no rashes, warm and dry Neurologic: moves all extremities; no focal motor deficits Psychiatric: Orientation: alert and oriented x 3 Affect: euthymic affect Lymphatic: no cervical or axillary lymphadenopathy no cervical lymphadenopathy Results & Data Vital Signs (Past 12 Hours) Vital Signs Temp Pulse Pulse Resp BP Pulse Ox Pulse Ox 07/15/19 10:57 36.7 C 68 19 90/57 L 93 07/15/19 07:29 36.7 C 68 19 102/64 90 07/15/19 03:40 72 90 07/15/19 03:35 36.9 C 69 16 99/64 L 89 L 07/15/19 00:20 60 89 L 07/15/19 00:12 36.7 C 61 16 107/61 93 Laboratory Results Short CBC 07/15/19 Range/Units 08:24 WBC 9.84 (4.8-10.8) K/uL Hgb 9.8 L (12.0-16.0) g/dL Hct 31.1 L (37-47) % Plt Count 282 (130-400) K/uL Medications Administered Current Inpatient Medications Acetaminophen (Tylenol) 650 mg PO Q4H PRN PRN Reason: Pain or Fever Stop: 08/08/19 12:44 Albuterol (Ventolin Hfa) 2 puffs INH Q6H PRN PRN Reason: Shortness Of Breath Or Wheezin Allopurinol (Zyloprim) 300 mg PO HS [facility] Stop: 08/08/19 20:59 Last Admin: 07/14/19 20:40 Dose: 300 mg Documented by: Benzonatate (Tessalon Perle) 100 mg PO TID PRN PRN Reason: Cough Stop: 08/11/19 14:06 Calcium Carbonate (Os-Patrice 500) 1,250 mg PO BID [facility] Stop: 08/11/19 20:59 Last Admin: 07/15/19 08:11 Dose: 1,250 mg Documented by: Carvedilol (Coreg) 12.5 mg PO BID [facility] Stop: 08/08/19 20:59 Last Admin: 07/15/19 08:11 Dose: 12.5 mg Documented by: Cyanocobalamin (Vitamin B-12) 1,000 mcg PO HS [facility] Stop: 08/11/19 20:59 Last Admin: 07/14/19 20:40 Dose: 1,000 mcg Documented by: Dextrose (Dextrose 50%) 25 - 50 ml IV UD PRN; Protocol PRN Reason: Hypoglycemia Protocol Stop: 08/08/19 14:44 Ferrous Sulfate (Feosol) 325 mg PO TIDM [facility] Stop: 08/11/19 16:59 Last Admin: 07/15/19 08:10 Dose: 325 mg Documented by: Furosemide (Lasix) 40 mg PO QAM [facility] Stop: 08/11/19 14:14 Last Admin: 07/15/19 08:11 Dose: 40 mg Documented by: Glucagon (Glucagen) 1 mg IM UD PRN; Protocol PRN Reason: Hypoglycemia Protocol Stop: 08/08/19 14:44 Glucose (Glucose 40%) 15 - 30 gm PO UD PRN; Protocol PRN Reason: Hypoglycemia Protocol Stop: 08/08/19 14:44 Glucose (Dex4 Glucose) 4 - 8 tabs PO UD PRN; Protocol PRN Reason: Hypoglycemia Protocol Stop: 08/08/19 14:44 Heparin Sodium/Dextrose (Heparin Sodium/Dextrose) 25,000 units in 500 mls @ 26 mls/hr IV .[id number] [facility]; Protocol Stop: 08/13/19 10:14 Last Admin: 07/15/19 03:50 Dose: 1,300 units/hr, 26 mls/hr Documented by: Insulin Aspart (Novolog Flexpen) 0 units SC ACHS [facility] Stop: 08/08/19 16:29 Last Admin: 07/15/19 08:13 Dose: Not Given Documented by: Insulin Glargine (Lantus Solostar Pen) 0 - 15 units SC BID [facility]; Protocol Stop: 08/08/19 20:59 Last Admin: 07/15/19 08:11 Dose: Not Given Documented by: Levothyroxine Sodium (Synthroid) 175 mcg PO Th@0630 [facility] Stop: 08/12/19 06:29 Last Admin: 07/13/19 06:08 Dose: 175 mcg Documented by: Levothyroxine Sodium (Synthroid) 200 mcg PO SuMoTuWeFrSa@0630 [facility] Stop: 08/08/19 13:29 Last Admin: 07/15/19 05:51 Dose: 200 mcg Documented by: Lisinopril (Zestril) 40 mg PO DAILY [facility] Stop: 08/09/19 08:59 Last Admin: 07/15/19 08:11 Dose: 40 mg Documented by: Magnesium Oxide (Mag-Ox) 400 mg PO TID [facility] Stop: 08/08/19 13:59 Last Admin: 07/15/19 08:11 Dose: 400 mg Documented by: Miscellaneous (Carbohydrates For Hypoglycemia) 15 - 30 gm PO UD PRN PRN Reason: Hypoglycemia Treatment Stop: 08/08/19 14:44 Miscellaneous (Order Awaiting Action) 1 ea N/A QS [facility] Stop: 08/11/19 15:59 Last Admin: 07/15/19 08:10 Dose: Not Given Documented by: Montelukast Sodium (Singulair) 10 mg PO QAM [facility] Stop: 08/09/19 08:59 Last Admin: 07/15/19 08:11 Dose: 10 mg Documented by: Potassium Chloride (Klor-Con M10) 10 meq PO QAM [facility] Stop: 08/12/19 08:59 Last Admin: 07/15/19 08:11 Dose: 10 meq Documented by: Vitamin D (Vitamin D3) 5,000 units PO Hernandes@0900 [facility] Stop: 08/15/19 08:59 Warfarin Sodium (Coumadin) 10 mg PO SuMoTuWeFrSa@1600 [facility] Stop: 08/11/19 15:59 Last Admin: 07/14/19 15:55 Dose: 10 mg Documented by: (1) Anemia Anemia type: unspecified type Qualified Code(s): D64.9 - Anemia, unspecified
[2019-07-15 14:11] LABS: CMV DNA Qnt Real Time PCR <200 IU/mL (<200); CMV DNA Quant PCR <2.30 log IU/mL (<2.30)
--- NOTE | 2019-07-15 14:14 | Cardiology Progress Note ---
Date of Service July 15, 2019 Assessment & Plan (1) Hemoptysis: (2) Anemia: (3) Diabetes mellitus type 2, controlled: (4) Atrial fibrillation: (5) History of mitral valve replacement with mechanical valve: (6) Pacemaker: (7) Pneumonitis: Hemoglobin today 07/15/2019 stable at 9.8, improved from its blood maria d of 6.8. Patient feeling much improved. Bronchoscopy findings consistent with alveolar hemorrhage, likely in the setting of supratherapeutic anticoagulation with INR having been at 6.5 on 07/09/2019. Heparin has been resumed and she is to receive 10 mg today. Repeat INR and CBC tomorrow. Goal INR 2.5-3. Patient plans to follow-up with her primary city mail carrier, Dr. Gallardo in [place], whom she has seen for over 20 years. Subjective Chief complaint follow-up shortness of breath, cough, hemoptysis Subjective: Patient sitting in the bedside chair. She states that she feels very well. Heparin is infusing. She has noted no hemoptysis for 2 days. Telemetry reveals ventricular paced rhythm in the range of 60 bpm. Review of previous EKG performed 07/02/2019 suggests underlying atrial fibrillation with demand ventricular pacing. Review of Systems Review of Systems: All systems reviewed & are unremarkable except as noted in HPI & below Physical Exam Physical Exam: Temp Pulse Resp BP Pulse Ox 36.7 C 68 19 90/57 L 93 07/15/19 10:57 07/15/19 10:57 07/15/19 10:57 07/15/19 10:57 07/15/19 10:57 Constitutional: WD/WN, vitals as above Respiratory: normal respiratory effort, lungs clear to auscultation Cardiovascular: Rate/Rhythm: regular rhythm [place] prosthetic heart sounds noted, no edema Gastrointestinal (Abdomen): normal bowel sounds, soft, nontender, no hepatosplenomegaly Neurologic: PERRL, EOMI, accommodation nl, no face palsy, no dysarthria Results & Data Vital Signs (Past 12 Hours) Vital Signs Temp Pulse Pulse Resp BP Pulse Ox Pulse Ox 07/15/19 10:57 36.7 C 68 19 90/57 L 93 07/15/19 07:29 36.7 C 68 19 102/64 90 07/15/19 03:40 72 90 07/15/19 03:35 36.9 C 69 16 99/64 L 89 L Laboratory Results INR today 07/15/2019 1.4 up from 1.3 yesterday PTT 54 seconds (1) Anemia Anemia type: unspecified type Qualified Code(s): D64.9 - Anemia, unspecified
[2019-07-15] MEDS: WARFARIN SOD 10 MG TAB PO SCH (16:42)
[2019-07-15] MEDS: CYANOCOBALAMIN 500 MCG TABLET (VITAMIN B-12) PO SCH (20:43)
[2019-07-15] MEDS: allopurinoL 300 MG TAB PO SCH (20:44)
[2019-07-16 05:42] LABS: INR 1.7 (0.9-1.1); Prothrombin Time 16.7 Seconds (9.0-12.0)
[2019-07-16 05:53] LABS: Partial Thromboplastin Ratio 2.3
[2019-07-16] MEDS: LEVOTHYROXINE SODIUM 200 MCG TABLET PO SCH (05:58)
[2019-07-16 06:01] LABS: BUN Creatinine Ratio 26.7 (10-20); Calcium 8.7 mg/dl (8.5-10.1); Creatinine Clr Calc Pharmacy 83.7 ml/min; Est GFR (African American) 88.8; Est GFR (Non-African American) 76.6; Potassium 4.3 mmol/L (3.5-5.1)
[2019-07-16 06:21] LABS: Partial Thromboplastin Time 61.6 Seconds (21.0-31.0)
[2019-07-16] MEDS: INSULIN ASPART 100 UNITS/ML 3 ML PEN SC SCH ×4 (08:32→21:17)
[2019-07-16] MEDS: INSULIN GLARGINE SOLOSTAR 100 UNITS/ML 3 ML PEN SC SCH ×2 (08:33→21:14)
[2019-07-16] MEDS ORDERED: CHOLECALCIFEROL 1,000 UNITS TAB PO SCH (09:00)
[2019-07-16] MEDS: carvediloL 12.5 MG TAB PO SCH ×2 (10:20→19:29)
[2019-07-16] MEDS: FERROUS SULFATE 325 MG TAB PO SCH ×3 (10:20→16:55)
[2019-07-16] MEDS: CALCIUM CARBONATE 1250MG TAB PO SCH ×2 (10:20→19:29)
[2019-07-16] MEDS: FUROSEMIDE 40 MG TAB PO SCH (10:21)
[2019-07-16] MEDS: POTASSIUM CHLORIDE 10 MEQ TABCR PO SCH (10:21)
[2019-07-16] MEDS: MAGNESIUM OXIDE 400 MG TAB PO SCH ×3 (10:21→19:29)
[2019-07-16] MEDS: MONTELUKAST SODIUM 10 MG TABLET PO SCH (10:21)
[2019-07-16] MEDS: lisinopriL 40 MG TAB PO SCH (10:28)
--- NOTE | 2019-07-16 11:36 | Hospitalist Progress Note ---
Date of Service July 16, 2019 Assessment & Plan (1) Hypoxia: Presented on admission with worsening SOB with O2 saturation as low as 87% on RA. Secondary to extensive bilateral airspace opacities :CT chest showed extensive bilateral airspace opacities within the lungs. CXR showed no significant change in bilateral central predominant pulmonary infiltrates, right greater than left. ProBNP and procalcitonin, Influenza PCR negative ECHO done showed no wall motion abnormality. EF 55 to 60% Received 2 units of PRBC on 07/12 She has been feeling not better following blood transfusion Nocturnal pulse oximetry shows desaturation events Denies any symptoms today With left to do steps O2 saturation before discharge tomorrow (2) Abnormal chest xray: As above Chest x-ray suggests pulmonary edema +/- bilat infiltrates. No sign of fluid overload Elevated ESR and C-reactive Immunology studies including RF, ANJUM, anti-proteinase, ANCA, GBM, anti- myeloperoxidase are pending To rule out any hematological condition causing this inflammatory lung disease Appreciate pulmonary input and recommendation Status post bronchoscopy today 07/12-showed alveolar hemorrhage but no acute endobronchial hemorrhage We will get repeat chest x-ray tomorrow morning (3) Hemoptysis: On Coumadin with INR on admission above 6 No Vit K given due to her history of mechanical valve Pulmonary consult INR went down to 1.5 today and she has had bronchoscopy Did show possible alveolar hemorrhage with normal bronchial tree as well as the endoscope allowed No more hemoptysis since last Continues to have minimal hemoptysis Discussed with validation analyst and will hold off any anticoagulation at this time No more hemoptysis and she has been feeling a lot better Heparin without bolus and Coumadin will be started today No benefit of using steroid for alveolar hemorrhage No more hemoptysis for the last 2 days and the lung sounds are much better No more hemoptysis and hemoglobin remains stable (4) Anemia: Acute blood loss anemia secondary to alveolar hemorrhage and hemoptysis Hgb on 07/02 was 10 Hemoglobin dropped to 6.8 today and repeat check showed 7.4 Likely has chronic anemia and is complicated by episode of alveolar hemorrhage Iron studies is suggestive of iron, vitamin B12 and folate level and TSH within normal range Has been started on oral iron Hemoglobin dropped to 6.8 and she will receive 2 units of blood transfusion today Hemoglobin 8.7 this morning Hemoglobin went up to 9.8 on 07/15 (5) Atrial fibrillation: Rate control Continue carvedilol and warfarin. Coumadin on hold due hemoptysis Starting on heparin drip Will hold heparin drip in am for Bronch Check PT/INR We will hold off anticoagulation for a day or 2 INR is 1.4 today and will continue heparin for now INR is 1.7 today we will continue heparin and Coumadin (6) History of mitral valve replacement with mechanical valve: S/P MVR 18 years ago with mechanical valve. Heparin and Coumadin have been restarted Risk of clotting is high without anticoagulation She is aware about it but she does not want to go for any further surgery on the heart Will start heparin without bolus and Coumadin (7) Diabetes mellitus type 2, controlled: Hba1c 5.4 Metformin on hold during hospital stay Continue Lantus and insulin sliding scale Monitor BS (8) Hypothyroidism: Continue current dose of levothyroxine. TSH normal (9) Gout: No recent flares. Continue allopurinol. (10) Vitamin B12 deficiency: B12 elevated On B12 supplement (11) DVT prophylaxis: Coumadin on hold due to INR On Heparin drip and oral Coumadin (12) Discharge planning issues: Primary care follow-up with Dr. To. Cardiology follow-up with Dr. Gallardo. We will continue current treatment Likely discharge tomorrow afternoon Subjective 07/12 The patient was seen and examined in telemetry unit He is a status post bronchoscopy Has been feeling much better following bronchoscopic evaluation Denies any hemoptysis since last night Denies any chest pain and/or palpitation or any shortness of breath 07/13 Patient was seen and examined in telemetry unit She has had hemoptysis again this morning Otherwise she has been feeling a lot better since admission Her hemoglobin went down to 6.8 Remains shortness of breath minimally at rest and worse with exertion 07/14 The patient was seen and examined in telemetry unit She has been feeling a lot better with less cough, no hemoptysis and no shortness of breath at rest Denies any chest pain and/or palpitation Has been ambulating reasonably well 07/15 Patient was seen and examined in telemetry unit She has been feeling a lot better today She has minimal cough without any more hemoptysis She has been ambulating with minimal difficulty of shortness of breath 07/16 Patient was seen and examined in the telemetry unit She has been looking a lot better today denies any cough and hemoptysis No shortness of breath at rest Likely to be discharged tomorrow Review of Systems Review of Systems: All systems reviewed and unremarkable except as noted below Constitutional: + weight gain (wt fluctuates) Respiratory: + cough Neurologic: + generalized weakness Endocrine: blood sugars well controlled, usually in low-mid 100's Physical Exam Physical Exam: Sitting at the age of the bed without any symptoms Constitutional: WD/WN, vitals as above well developed, well nourished and + obese; no acute distress and not ill appearing Eyes: PERRL, conjunctivae normal, anicteric sclerae ENMT: external ear and nose normal, oropharynx normal Neck: trachea midline, no thyromegaly Respiratory: normal respiratory effort, lungs clear to auscultation normal respiratory effort and + cough; no respiratory distress Auscultation: lungs clear to auscultation bilaterally Cardiovascular: Rate/Rhythm: regular rate Heart Sounds: + murmur (mechanical valve sounds in mitral position with II/ systolic murmur) Vessels: normal peripheral pulses and dorsalis pedis pulses present Extremities: normal capillary refill and + edema (trace pretibial); no calf ten derness Gastrointestinal (Abdomen): normal bowel sounds, soft, nontender, no hepatosplenomegaly ((exam limited due to body habitus)) Inspection/Auscultation: abdomen normal to inspection and normal bowel sounds Percussion/Palpation: abdomen soft Musculoskeletal: Head/Neck/Chest: neck supple Extremities: strength 5/5 throughout; no cyanosis and no clubbing Skin: no rashes, warm and dry Neurologic: moves all extremities; no focal motor deficits Psychiatric: Orientation: alert and oriented x 3 Affect: euthymic affect Lymphatic: no cervical or axillary lymphadenopathy no cervical lymphadenopathy Results & Data Vital Signs (Past 12 Hours) Vital Signs Temp Pulse Resp BP BP Pulse Ox 07/16/19 10:58 36.3 C L 71 19 98/64 L 93 07/16/19 07:46 36.6 C 63 18 105/67 95 07/16/19 02:48 36.7 C 77 16 99/63 L 77 L 07/16/19 00:15 36.8 C 66 16 108/58 L 95 Laboratory Results [facility] 07/16/19 05:08 Sodium 140 Potassium 4.3 Chloride 107 Carbon Dioxide 28 BUN 22 H Creatinine 0.84 Glucose 99 Calcium 8.7 Medications Administered Current Inpatient Medications Acetaminophen (Tylenol) 650 mg PO Q4H PRN PRN Reason: Pain or Fever Stop: 08/08/19 12:44 Albuterol (Ventolin Hfa) 2 puffs INH Q6H PRN PRN Reason: Shortness Of Breath Or Wheezin Allopurinol (Zyloprim) 300 mg PO HS [facility] Stop: 08/08/19 20:59 Last Admin: 07/15/19 20:44 Dose: 300 mg Documented by: Benzonatate (Tessalon Perle) 100 mg PO TID PRN PRN Reason: Cough Stop: 08/11/19 14:06 Calcium Carbonate (Os-Patrice 500) 1,250 mg PO BID [facility] Stop: 08/11/19 20:59 Last Admin: 07/16/19 10:20 Dose: 1,250 mg Documented by: Carvedilol (Coreg) 12.5 mg PO BID [facility] Stop: 08/08/19 20:59 Last Admin: 07/16/19 10:20 Dose: 12.5 mg Documented by: Cyanocobalamin (Vitamin B-12) 1,000 mcg PO HS [facility] Stop: 08/11/19 20:59 Last Admin: 07/15/19 20:43 Dose: 1,000 mcg Documented by: Dextrose (Dextrose 50%) 25 - 50 ml IV UD PRN; Protocol PRN Reason: Hypoglycemia Protocol Stop: 08/08/19 14:44 Ferrous Sulfate (Feosol) 325 mg PO TIDM [facility] Stop: 08/11/19 16:59 Last Admin: 07/16/19 10:20 Dose: 325 mg Documented by: Furosemide (Lasix) 40 mg PO QAM [facility] Stop: 08/11/19 14:14 Last Admin: 07/16/19 10:21 Dose: 40 mg Documented by: Glucagon (Glucagen) 1 mg IM UD PRN; Protocol PRN Reason: Hypoglycemia Protocol Stop: 08/08/19 14:44 Glucose (Glucose 40%) 15 - 30 gm PO UD PRN; Protocol PRN Reason: Hypoglycemia Protocol Stop: 08/08/19 14:44 Glucose (Dex4 Glucose) 4 - 8 tabs PO UD PRN; Protocol PRN Reason: Hypoglycemia Protocol Stop: 08/08/19 14:44 Heparin Sodium/Dextrose (Heparin Sodium/Dextrose) 25,000 units in 500 mls @ 26 mls/hr IV .[id number] [facility]; Protocol Stop: 08/13/19 10:14 Last Admin: 07/15/19 22:17 Dose: 1,300 units/hr, 26 mls/hr Documented by: Insulin Aspart (Novolog Flexpen) 0 units SC ACHS [facility] Stop: 08/08/19 16:29 Last Admin: 07/16/19 08:32 Dose: Not Given Documented by: Insulin Glargine (Lantus Solostar Pen) 0 - 15 units SC BID [facility]; Protocol Stop: 08/08/19 20:59 Last Admin: 07/16/19 08:33 Dose: Not Given Documented by: Levothyroxine Sodium (Synthroid) 175 mcg PO Th@0630 [facility] Stop: 08/12/19 06:29 Last Admin: 07/13/19 06:08 Dose: 175 mcg Documented by: Levothyroxine Sodium (Synthroid) 200 mcg PO SuMoTuWeFrSa@0630 [facility] Stop: 08/08/19 13:29 Last Admin: 07/16/19 05:58 Dose: 200 mcg Documented by: Lisinopril (Zestril) 40 mg PO DAILY [facility] Stop: 08/09/19 08:59 Last Admin: 07/16/19 10:28 Dose: Not Given Documented by: Magnesium Oxide (Mag-Ox) 400 mg PO TID [facility] Stop: 08/08/19 13:59 Last Admin: 07/16/19 10:21 Dose: 400 mg Documented by: Miscellaneous (Carbohydrates For Hypoglycemia) 15 - 30 gm PO UD PRN PRN Reason: Hypoglycemia Treatment Stop: 08/08/19 14:44 Miscellaneous (Order Awaiting Action) 1 ea N/A QS [facility] Stop: 08/11/19 15:59 Last Admin: 07/16/19 08:13 Dose: Not Given Documented by: Montelukast Sodium (Singulair) 10 mg PO QAM [facility] Stop: 08/09/19 08:59 Last Admin: 07/16/19 10:21 Dose: 10 mg Documented by: Potassium Chloride (Klor-Con M10) 10 meq PO QAM [facility] Stop: 08/12/19 08:59 Last Admin: 07/16/19 10:21 Dose: 10 meq Documented by: Vitamin D (Vitamin D3) 5,000 units PO Hernandes@0900 [facility] Stop: 08/15/19 08:59 Last Admin: 07/16/19 10:19 Dose: 5,000 units Documented by: Warfarin Sodium (Coumadin) 10 mg PO MiraJorge@1600 [facility] Stop: 08/11/19 15:59 Last Admin: 07/15/19 16:42 Dose: 10 mg Documented by: (1) Anemia Anemia type: unspecified type Qualified Code(s): D64.9 - Anemia, unspecified
--- NOTE | 2019-07-16 12:54 | Cardiology Progress Note ---
Date of Service July 16, 2019 Assessment & Plan (1) Hemoptysis: (2) Anemia: (3) Diabetes mellitus type 2, controlled: (4) Atrial fibrillation: (5) History of mitral valve replacement with mechanical valve: (6) Pacemaker: (7) Pneumonitis: Hbg stable. INR 1.7, PTT 61. Continue heparin bridge. Coumadin 10 mg today. Goal INR 2.5-3. Subjective Chief complaint follow-up shortness of breath, cough, hemoptysis Subjective: Patient sitting in the bedside chair. She states that she feels very well. Heparin is infusing. She has noted no hemoptysis for 2 days. Telemetry reveals ventricular paced rhythm in the range of 60 bpm. Review of previous EKG performed 07/02/2019 suggests underlying atrial fibrillation with demand ventricular pacing. Results & Data Vital Signs (Past 12 Hours) Vital Signs Temp Pulse Resp BP BP Pulse Ox 07/16/19 10:58 36.3 C L 71 19 98/64 L 93 07/16/19 07:46 36.6 C 63 18 105/67 95 07/16/19 02:48 36.7 C 77 16 99/63 L 77 L (1) Anemia Anemia type: unspecified type Qualified Code(s): D64.9 - Anemia, unspecified
[2019-07-16] MEDS: WARFARIN SOD 10 MG TAB PO SCH (16:55)
[2019-07-16] MEDS: HEPARIN SODIUM/DEXTROSE 25,000 UNITS/500 ML BAG IV SCH (18:03)
[2019-07-16] MEDS: allopurinoL 300 MG TAB PO SCH (19:29)
[2019-07-16] MEDS: CYANOCOBALAMIN 500 MCG TABLET (VITAMIN B-12) PO SCH (19:29)
[2019-07-16] MEDS: ACETAMINOPHEN 325 MG TAB PO PRN (19:30)
[2019-07-17 00:46] LABS: HSV Type 1 DNA Not Detected (Not Detected); HSV Type 2 DNA Not Detected (Not Detected)
[2019-07-17] MEDS: LEVOTHYROXINE SODIUM 200 MCG TABLET PO SCH (05:53)
[2019-07-17 07:15] LABS: Basophils # (auto) 0.11 K/uL (0-0.2); Basophils % (auto) 1.4 %; Eosinophils # (auto) 0.88 K/uL (0-0.5); Eosinophils % (auto) 11.2 %; Hematocrit (blood only) 30.8 % (37-47); Hemoglobin 9.7 g/dL (12.0-16.0); Immature Granulocytes # (auto) 0.07 K/uL (0.00-0.02); Immature Granulocytes % (auto) 0.9 %; Lymphocytes # (auto) 1.56 K/uL (1.2-3.4); Lymphocytes % (auto) 19.9 %; Mean Corpuscular Hemoglobin 27.1 pg (25-34); Mean Corpuscular Hgb Conc 31.5 g/dL (32-36); Mean Platelet Volume 9.8 fL (7.4-10.4); Monocytes # (auto) 0.71 K/uL (0.11-0.59); Monocytes % (auto) 9.1 %; Neutrophils # (auto) 4.51 K/uL (1.4-6.5); Neutrophils % (auto) 57.5 %; Platelet Count 270 K/uL (130-400); RDW Coefficient of Variation 15.7 % (11.5-14.5); RDW Standard Deviation 49.6 fL (36.4-46.3); Red Blood Count 3.58 M/uL (4.2-5.4); White Blood Count 7.84 K/uL (4.8-10.8)
[2019-07-17 07:41] LABS: INR 2.1 (0.9-1.1); Partial Thromboplastin Ratio 2.2; Prothrombin Time 20.7 Seconds (9.0-12.0)
[2019-07-17] MEDS: carvediloL 12.5 MG TAB PO SCH (07:45)
[2019-07-17] MEDS: ACETAMINOPHEN 325 MG TAB PO PRN (07:45)
[2019-07-17 07:47] LABS: Partial Thromboplastin Time 59.8 Seconds (21.0-31.0)
[2019-07-17] MEDS: CALCIUM CARBONATE 1250MG TAB PO SCH (07:47)
[2019-07-17] MEDS: FERROUS SULFATE 325 MG TAB PO SCH ×3 (07:47→16:22)
[2019-07-17] MEDS: MAGNESIUM OXIDE 400 MG TAB PO SCH ×2 (07:47→13:08)
[2019-07-17] MEDS: POTASSIUM CHLORIDE 10 MEQ TABCR PO SCH (07:48)
[2019-07-17] MEDS: FUROSEMIDE 40 MG TAB PO SCH (07:48)
[2019-07-17] MEDS: MONTELUKAST SODIUM 10 MG TABLET PO SCH (07:48)
[2019-07-17] MEDS: INSULIN GLARGINE SOLOSTAR 100 UNITS/ML 3 ML PEN SC SCH (07:52)
[2019-07-17] MEDS: lisinopriL 40 MG TAB PO SCH (07:53)
[2019-07-17] MEDS: INSULIN ASPART 100 UNITS/ML 3 ML PEN SC SCH ×2 (07:53→12:10)
[2019-07-17 08:15] LABS: BUN Creatinine Ratio 25.5 (10-20); Calcium 9.2 mg/dl (8.5-10.1); Creatinine Clr Calc Pharmacy 80.3 ml/min; Est GFR (African American) 85.1; Est GFR (Non-African American) 73.4; Potassium 4.1 mmol/L (3.5-5.1)
--- NOTE | 2019-07-17 11:41 | XRay Report ---
XR chest 2V routine HISTORY: Shortness of breath. Congestive heart failure. COMPARISON: Chest 07/10/2019. FINDINGS: Interval improvement in the bilateral perihilar airspace opacities. The heart remains enlar ged. There are poststernotomy changes. No pneumothorax. No pleural effusions. Right-sided single lead pacemaker. IMPRESSION: Interval improvement in the bilateral perihilar airspace opacities suggesting resolving pulmonary annalisa ma. Electronically signed by: Chito Nguyen M.D. 07/17/2019 11:40 AM
--- NOTE | 2019-07-17 14:03 | Hospitalist Progress Note ---
Date of Service July 17, 2019 Assessment & Plan (1) Hypoxia: Presented on admission with worsening SOB with O2 saturation as low as 87% on RA. Secondary to extensive bilateral airspace opacities :CT chest showed extensive bilateral airspace opacities within the lungs. CXR showed no significant change in bilateral central predominant pulmonary infiltrates, right greater than left. ProBNP and procalcitonin, Influenza PCR negative ECHO done showed no wall motion abnormality. EF 55 to 60% Received 2 units of PRBC on 07/12 She has been feeling not better following blood transfusion Nocturnal pulse oximetry shows desaturation events Denies any symptoms today Did very good with to do steps O2 saturation test-she does not require any oxygen She will be discharged home this afternoon (2) Abnormal chest xray: As above Chest x-ray suggests pulmonary edema +/- bilat infiltrates. No sign of fluid overload Elevated ESR and C-reactive Immunology studies including RF, ANJUM, anti-proteinase, ANCA, GBM, anti- myeloperoxidase are pending To rule out any hematological condition causing this inflammatory lung disease Appreciate pulmonary input and recommendation Status post bronchoscopy today 07/12-showed alveolar hemorrhage but no acute end obronchial hemorrhage Repeat chest x-ray this morning shows almost clearance of pulmonary edema/alveolar hemorrhage (3) Hemoptysis: On Coumadin with INR on admission above 6 No Vit K given due to her history of mechanical valve Pulmonary consult INR went down to 1.5 today and she has had bronchoscopy Did show possible alveolar hemorrhage with normal bronchial tree as well as the endoscope allowed No more hemoptysis since last Continues to have minimal hemoptysis Discussed with business services manager and will hold off any anticoagulation at this time No more hemoptysis and she has been feeling a lot better Heparin without bolus and Coumadin will be started today No benefit of using steroid for alveolar hemorrhage No more hemoptysis for the last 2 days and the lung sounds are much better No more hemoptysis and hemoglobin remains stable No more hemoptysis and/or cough (4) Anemia: Acute blood loss anemia secondary to alveolar hemorrhage and hemoptysis Hgb on 07/02 was 10 Hemoglobin dropped to 6.8 today and repeat check showed 7.4 Likely has chronic anemia and is complicated by episode of alveolar hemorrhage Iron studies is suggestive of iron, vitamin B12 and folate level and TSH within normal range Has been started on oral iron Hemoglobin dropped to 6.8 and she will receive 2 units of blood transfusion today Hemoglobin 8.7 this morning Hemoglobin went up to 9.8 on 07/15, 9.7 on 07/18 (5) Atrial fibrillation: Rate control Continue carvedilol and warfarin. Coumadin on hold due hemoptysis Starting on heparin drip Will hold heparin drip in am for Bronch Check PT/INR We will hold off anticoagulation for a day or 2 INR is 1.4 today and will continue heparin for now INR is 1.7 today we will continue heparin and Coumadin INR is 2.1 today Advised to keep INR between 2.5-3.5 (6) History of mitral valve replacement with mechanical valve: S/P MVR 18 years ago with mechanical valve. Heparin and Coumadin have been restarted Risk of clotting is high without anticoagulation She is aware about it but she does not want to go for any further surgery on the heart Will start heparin without bolus and Coumadin (7) Diabetes mellitus type 2, controlled: Hba1c 5.4 Metformin on hold during hospital stay Continue Lantus and insulin sliding scale Monitor BS (8) Hypothyroidism: Continue current dose of levothyroxine. TSH normal (9) Gout: No recent flares. Continue allopurinol. (10) Vitamin B12 deficiency: B12 elevated On B12 supplement (11) DVT prophylaxis: Coumadin on hold due to INR On Heparin drip and oral Coumadin (12) Discharge planning issues: Primary care follow-up with Dr. To. Cardiology follow-up with Dr. Gallardo. We will continue current treatment Will discharge home this afternoon Subjective 07/12 The patient was seen and examined in telemetry unit He is a status post bronchoscopy Has been feeling much better following bronchoscopic evaluation Denies any hemoptysis since last night Denies any chest pain and/or palpitation or any shortness of breath 07/13 Patient was seen and examined in telemetry unit She has had hemoptysis again this morning Otherwise she has been feeling a lot better since admission Her hemoglobin went down to 6.8 Remains shortness of breath minimally at rest and worse with exertion 07/14 The patient was seen and examined in telemetry unit She has been feeling a lot better with less cough, no hemoptysis and no shortness of breath at rest Denies any chest pain and/or palpitation Has been ambulating reasonably well 07/15 Patient was seen and examined in telemetry unit She has been feeling a lot better today She has minimal cough without any more hemoptysis She has been ambulating with minimal difficulty of shortness of breath 07/16 Patient was seen and examined in the telemetry unit She has been looking a lot better today denies any cough and hemoptysis No shortness of breath at rest Likely to be discharged tomorrow 07/18 Patient was seen and examined in telemetry unit She has been doing much better and she denies any more cough, hemoptysis, shortness of breath or palpitation She passed the 2 steps test He will be discharged this afternoon Review of Systems Review of Systems: All systems reviewed and are unremarkable except as noted Respiratory: no cough, no dyspnea, no dyspnea on exertion and no hemoptysis Cardiovascular: no chest pain Physical Exam Physical Exam: Sitting on a chair without any symptoms Constitutional: WD/WN, vitals as above well developed, well nourished and + obese; no acute distress and not ill appearing Eyes: PERRL, conjunctivae normal, anicteric sclerae ENMT: external ear and nose normal, oropharynx normal Neck: trachea midline, no thyromegaly Respiratory: normal respiratory effort; no respiratory distress Auscultation: lungs clear to auscultation bilaterally Cardiovascular: Rate/Rhythm: regular rate Heart Sounds: + murmur (mechanical valve sounds in mitral position with II/ systolic murmur) Vessels: normal peripheral pulses and dorsalis pedis pulses present Extremities: normal capillary refill and + edema (trace pretibial); no calf tenderness Gastrointestinal (Abdomen): Inspection/Auscultation: abdomen normal to inspection and normal bowel sounds Percussion/Palpation: abdomen soft Musculoskeletal: Head/Neck/Chest: neck supple Extremities: strength 5/5 throughout; no cyanosis and no clubbing Skin: no rashes, warm and dry Neurologic: moves all extremities; no focal motor deficits Psychiatric: Orientation: alert and oriented x 3 Affect: euthymic affect Lymphatic: no cervical or axillary lymphadenopathy no cervical lymphadenopathy Results & Data Vital Signs (Past 12 Hours) Vital Signs Temp Pulse Pulse Pulse Resp Resp Resp 07/17/19 11:38 36.6 C 64 17 07/17/19 08:43 85 66 18 15 07/17/19 07:01 36.9 C 65 16 07/17/19 03:37 36.4 C L 77 16 BP BP Pulse Ox Pulse Ox Pulse Ox 07/17/19 11:38 92/58 L 96 07/17/19 08:43 94 96 07/17/19 07:01 116/74 95 07/17/19 03:37 100/69 99 Laboratory Results Short CBC 07/17/19 Range/Units 07:02 WBC 7.84 (4.8-10.8) K/uL Hgb 9.7 L (12.0-16.0) g/dL Hct 30.8 L (37-47) % Plt Count 270 (130-400) K/uL BMP 07/17/19 07:02 Sodium 138 Potassium 4.1 Chloride 104 Carbon Dioxide 25 BUN 22 H Creatinine 0.87 Glucose 102 H Calcium 9.2 Medications Administered Current Inpatient Medications Acetaminophen (Tylenol) 650 mg PO Q4H PRN PRN Reason: Pain or Fever Stop: 08/08/19 12:44 Last Admin: 07/17/19 07:45 Dose: 650 mg Documented by: Albuterol (Ventolin Hfa) 2 puffs INH Q6H PRN PRN Reason: Shortness Of Breath Or Wheezin Allopurinol (Zyloprim) 300 mg PO HS [facility] Stop: 08/08/19 20:59 Last Admin: 07/16/19 19:29 Dose: 300 mg Documented by: Benzonatate (Tessalon Perle) 100 mg PO TID PRN PRN Reason: Cough Stop: 08/11/19 14:06 Calcium Carbonate (Os-Patrice 500) 1,250 mg PO BID [facility] Stop: 08/11/19 20:59 Last Admin: 07/17/19 07:47 Dose: 1,250 mg Documented by: Carvedilol (Coreg) 12.5 mg PO BID [facility] Stop: 08/08/19 20:59 Last Admin: 07/17/19 07:45 Dose: 12.5 mg Documented by: Cyanocobalamin (Vitamin B-12) 1,000 mcg PO HS [facility] Stop: 08/11/19 20:59 Last Admin: 07/16/19 19:29 Dose: 1,000 mcg Documented by: Dextrose (Dextrose 50%) 25 - 50 ml IV UD PRN; Protocol PRN Reason: Hypoglycemia Protocol Stop: 08/08/19 14:44 Ferrous Sulfate (Feosol) 325 mg PO TIDM [facility] Stop: 08/11/19 16:59 Last Admin: 07/17/19 13:08 Dose: 325 mg Documented by: Furosemide (Lasix) 40 mg PO QAM [facility] Stop: 08/11/19 14:14 Last Admin: 07/17/19 07:48 Dose: 40 mg Documented by: Glucagon (Glucagen) 1 mg IM UD PRN; Protocol PRN Reason: Hypoglycemia Protocol Stop: 08/08/19 14:44 Glucose (Glucose 40%) 15 - 30 gm PO UD PRN; Protocol PRN Reason: Hypoglycemia Protocol Stop: 08/08/19 14:44 Glucose (Dex4 Glucose) 4 - 8 tabs PO UD PRN; Protocol PRN Reason: Hypoglycemia Protocol Stop: 08/08/19 14:44 Insulin Aspart (Novolog Flexpen) 0 units SC ACHS [facility] Stop: 08/08/19 16:29 Last Admin: 07/17/19 12:10 Dose: Not Given Documented by: Insulin Glargine (Lantus Solostar Pen) 0 - 15 units SC BID [facility]; Protocol Stop: 08/08/19 20:59 Last Admin: 07/17/19 07:52 Dose: Not Given Documented by: Levothyroxine Sodium (Synthroid) 175 mcg PO Th@0630 [facility] Stop: 08/12/19 06:29 Last Admin: 07/13/19 06:08 Dose: 175 mcg Documented by: Levothyroxine Sodium (Synthroid) 200 mcg PO SuMoTuWeFrSa@0630 [facility] Stop: 08/08/19 13:29 Last Admin: 07/17/19 05:53 Dose: 200 mcg Documented by: Lisinopril (Zestril) 40 mg PO DAILY [facility] Stop: 08/09/19 08:59 Last Admin: 07/17/19 07:53 Dose: 40 mg Documented by: Magnesium Oxide (Mag-Ox) 400 mg PO TID [facility] Stop: 08/08/19 13:59 Last Admin: 07/17/19 13:08 Dose: 400 mg Documented by: Miscellaneous (Carbohydrates For Hypoglycemia) 15 - 30 gm PO UD PRN PRN Reason: Hypoglycemia Treatment Stop: 08/08/19 14:44 Miscellaneous (Order Awaiting Action) 1 ea N/A QS [facility] Stop: 08/11/19 15:59 Last Admin: 07/17/19 07:53 Dose: Not Given Documented by: Montelukast Sodium (Singulair) 10 mg PO QAM [facility] Stop: 08/09/19 08:59 Last Admin: 07/17/19 07:48 Dose: 10 mg Documented by: Potassium Chloride (Klor-Con M10) 10 meq PO QAM [facility] Stop: 08/12/19 08:59 Last Admin: 07/17/19 07:48 Dose: 10 meq Documented by: Vitamin D (Vitamin D3) 5,000 units PO Hernandes@0900 [facility] Stop: 08/15/19 08:59 Last Admin: 07/16/19 10:19 Dose: 5,000 units Documented by: Warfarin Sodium (Coumadin) 10 mg PO SuMoTuWeFrSa@1600 [facility] Stop: 08/11/19 15:59 Last Admin: 07/16/19 16:55 Dose: 10 mg Documented by: (1) Anemia Anemia type: unspecified type Qualified Code(s): D64.9 - Anemia, unspecified
[2019-07-17] MEDS: WARFARIN SOD 10 MG TAB PO SCH (16:22)
--- NOTE | 2019-07-18 18:30 | Discharge Summary ---
Date of Service July 18, 2019 Admission HPI Per Admitting Provider 58 YO female followed by Dr. To in [place] for primary care and Dr. Gallardo in [place] for Cardiology. History of congenital AV block since childhood and mitral valve disease. Mitral valve replacement with a mechanical valve and pacemaker performed at [facility] at the age of 40. Other medical problems include diabetes mellitus type 2, hypothyroidism, gout. She was in her usual state of health until about 3 weeks ago when she developed chills, malaise, wheezing, and a cough. Cough was productive of small blood clots. She takes warfarin for mechanical MVR + AF; INR's have recently been therapeutic / supratherapeutic. Seen in ED at [facility] around 06/24. [place] to have pneumonia and was prescribed a course of doxycycline. Came to the ED at [facility] 07/02/19 because of persistent hemoptysis and dyspnea. INR was 4.0. D-dimer was negative. Chest x-ray showed cardiomegaly, mild CHF, perihilar airspace opacities. Antibiotic therapy was changed from doxycycline to levofloxacin. She has not had any recent weight gain or edema. Pt not aware of being diagnosed with CHF in past. Last echo was about 1 year ago. Usually takes furosemide 40 mg daily. Instructed to increase furosemide dose to 80 mg daily for 4 days because of apparent CHF on chest x-ray. She diuresed and lost several pounds, but there was no significant improvement of her SOB. Returned to ED today with progressive malaise, cough, hemoptysis, dyspnea. Possible low grade temp at home. No chest pain. O2 sats in ED were as low as 87%. [place] less dyspneic after administration of O2. 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 Exposed to cleaning agents, but nothing that she identifies as caustic. 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 No travel history. No sick contacts. Admission Exam Per Admitting Provider Constitutional: WD/WN, vitals as above no acute distress Eyes: PERRL, conjunctivae normal, anicteric sclerae ENMT: external ear and nose normal, oropharynx normal Neck: trachea midline, no thyromegaly Respiratory: normal respiratory effort, lungs clear to auscultation Cardiovascular: Rate/Rhythm: regular rate Heart Sounds: + murmur (mechanical valve sounds in mitral position with II/ systolic murmur); no gallop and no cardiac rub Vessels: normal peripheral pulses and dorsalis pedis pulses present; no JVD Extremities: normal capillary refill and + edema (trace pretibial); no calf tenderness Gastrointestinal (Abdomen): normal bowel sounds, soft, nontender, no hepatosplenomegaly ((exam limited due to body habitus)) Musculoskeletal: Head/Neck/Chest: neck supple Extremities: strength 5/5 throughout; no cyanosis and no clubbing Skin: no rashes, warm and dry mild pretibial venous stasis changes Neurologic: PERRL, EOMI no facial palsy no dysarthria or aphasia patellar DTR's 10/26 bilat Psychiatric: Orientation: alert and oriented x 3 Affect: euthymic affect Lymphatic: no cervical lymphadenopathy Principal Diagnosis 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, hemoptysis-resolved, acute blood loss anemia required blood transfusion, status post mechanical mitral valve replacement Discharge Exam Constitutional WD/WN, vitals as above well developed, well nourished and + obese; no acute distress and not ill appearing Eyes PERRL, conjunctivae normal, anicteric sclerae ENMT external ear and nose normal, oropharynx normal Neck trachea midline, no thyromegaly Respiratory normal respiratory effort, lungs clear to auscultation normal respiratory effort; no respiratory distress Auscultation: lungs clear to auscultation bilaterally Cardiovascular Rate/Rhythm: regular rate Heart Sounds: + murmur (mechanical valve sounds in mitral position with II/ systolic murmur) Vessels: normal peripheral pulses and dorsalis pedis pulses present Extremities: normal capillary refill and + edema (trace pretibial); no calf tenderness Gastrointestinal (Abdomen) normal bowel sounds, soft, nontender, no hepatosplenomegaly ((exam limited due to body habitus)) Inspection/Auscultation: abdomen normal to inspection and normal bowel sounds Percussion/Palpation: abdomen soft Musculoskeletal Head/Neck/Chest: neck supple Extremities: strength 5/5 throughout; no cyanosis and no clubbing Skin no rashes, warm and dry Neurologic moves all extremities; no focal motor deficits Psychiatric Orientation: alert and oriented x 3 Affect: euthymic affect Lymphatic no cervical or axillary lymphadenopathy no cervical lymphadenopathy Discharge Data Allergies Allergy/AdvReac Type Severity Reaction Status Date / Time azithromycin Allergy Intermediate Rash Unverified 07/09/19 09:11 [From Zithromax Z-Jhoan] Sulfa (Sulfonamide Allergy Intermediate Rash Unverified 07/09/19 09:11 Antibiotics) Consultations 07/09/19 10:59 ED Decision to Admit Stat 07/09/19 13:52 Consult Cardiology Routine 07/09/19 21:01 HIM [Consult Health Information Management] Routine 07/10/19 07:00 Consult Pulmonology Routine Procedures Performed Operation Date: 07/12/19 08:00 Actual Procedures p Bronchoscopy Radiology(Bilateral) - Jeffrey Mckee MD Ordered Studies 07/09/19 14:57 CT chest wo con Urgent Hospital Course (1) Hypoxia: Presented on admission with worsening SOB with O2 saturation as low as 87% on RA. Secondary to extensive bilateral airspace opacities :CT chest showed extensive bilateral airspace opacities within the lungs. CXR showed no significant change in bilateral central predominant pulmonary infiltrates, right greater than left. ProBNP and procalcitonin, Influenza PCR negative ECHO done showed no wall motion abnormality. EF 55 to 60% Received 2 units of PRBC on 07/12 She has been feeling not better following blood transfusion Nocturnal pulse oximetry shows desaturation events Denies any symptoms today Did very good with to do steps O2 saturation test-she does not require any oxygen She will be discharged home this afternoon (2) Abnormal chest xray: As above Chest x-ray suggests pulmonary edema +/- bilat infiltrates. No sign of fluid overload Elevated ESR and C-reactive Immunology studies including RF, ANJUM, anti-proteinase, ANCA, GBM, anti- myeloperoxidase are pending To rule out any hematological condition causing this inflammatory lung disease Appreciate pulmonary input and recommendation Status post bronchoscopy today 07/12-showed alveolar hemorrhage but no acute endobronchial hemorrhage Repeat chest x-ray this morning shows almost clearance of pulmonary edema/alveolar hemorrhage (3) Hemoptysis: On Coumadin with INR on admission above 6 No Vit K given due to her history of mechanical valve Pulmonary consult INR went down to 1.5 today and she has had bronchoscopy Did show possible alveolar hemorrhage with normal bronchial tree as well as the endoscope allowed No more hemoptysis since last Continues to have minimal hemoptysis Discussed with director rehabilitation program and will hold off any anticoagulation at this time No more hemoptysis and she has been feeling a lot better Heparin without bolus and Coumadin will be started today No benefit of using steroid for alveolar hemorrhage No more hemoptysis for the last 2 days and the lung sounds are much better No more hemoptysis and hemoglobin remains stable No more hemoptysis and/or cough (4) Anemia: Acute blood loss anemia secondary to alveolar hemorrhage and hemoptysis Hgb on 07/02 was 10 Hemoglobin dropped to 6.8 today and repeat check showed 7.4 Likely has chronic anemia and is complicated by episode of alveolar hemorrhage Iron studies is suggestive of iron, vitamin B12 and folate level and TSH within normal range Has been started on oral iron Hemoglobin dropped to 6.8 and she will receive 2 units of blood transfusion today Hemoglobin 8.7 this morning Hemoglobin went up to 9.8 on 07/15, 9.7 on 07/18 (5) Atrial fibrillation: Rate control Continue carvedilol and warfarin. Coumadin on hold due hemoptysis Starting on heparin drip Will hold heparin drip in am for Bronch Check PT/INR We will hold off anticoagulation for a day or 2 INR is 1.4 today and will continue heparin for now INR is 1.7 today we will continue heparin and Coumadin INR is 2.1 today Advised to keep INR between 2.5-3.5 (6) History of mitral valve replacement with mechanical valve: S/P MVR 18 years ago with mechanical valve. Heparin and Coumadin have been restarted Risk of clotting is high without anticoagulation She is aware about it but she does not want to go for any further surgery on the heart Will start heparin without bolus and Coumadin (7) Diabetes mellitus type 2, controlled: Hba1c 5.4 Metformin on hold during hospital stay Continue Lantus and insulin sliding scale Monitor BS (8) Hypothyroidism: Continue current dose of levothyroxine. TSH normal (9) Gout: No recent flares. Continue allopurinol. (10) Vitamin B12 deficiency: B12 elevated On B12 supplement (11) DVT prophylaxis: Coumadin on hold due to INR On Heparin drip and oral Coumadin (12) Discharge planning issues: Primary care follow-up with Dr. To. Cardiology follow-up with Dr. Gallardo. 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 Check INR and keep it between 2.5-3.5 and adjust Coumadin accordingly. Please keep appointment with your director rehabilitation program) Diet: Carb Consistent or DM2 and Heart Healthy Addtl Attending Provider Instructions: Please take precaution to avoid falls Pending Studies at Discharge: No Stand-Alone Forms: My [facility] Medications and DC Order Prescriptions: New ferrous sulfate 325 mg (65 mg iron) Tablet,Delayed Release (Dr/Ec) 325 mg PO BID 30 Days Qty: 60 RF: 0 Continued furosemide 40 mg Tablet 40 mg PO QAM RF: 0 metformin 500 mg Tablet 500 mg PO BIDM RF: 0 levothyroxine 175 mcg Tablet 175 mcg PO TH RF: 0 carvedilol 12.5 mg Tablet 12.5 mg PO BID RF: 0 warfarin 10 mg Tablet 10 mg PO SUMOTUWEFRSA RF: 0 warfarin 10 mg Tablet 10 mg PO TH RF: 0 cyanocobalamin (vitamin B-12) [Vitamin B-12] 1,000 mcg Tablet 1,000 mcg PO HS RF: 0 glucosamine sulfate [Glucosamine] 500 mg Tablet 1,500 mg PO DAILY RF: 0 potassium chloride 10 mEq Tablet Extended Release 10 meq PO QAM RF: 0 calcium carbonate [Calcium 500] 500 mg calcium (1,250 mg) Tablet 500 mg PO BID RF: 0 benzonatate 100 mg Capsule 100 mg PO TID PRN (Reason: Cough) RF: 0 warfarin 2 mg Tablet 2 mg PO TH RF: 0 montelukast 10 mg Tablet 10 mg PO QAM RF: 0 allopurinol 300 mg Tablet 300 mg PO HS RF: 0 levothyroxine 200 mcg Tablet 200 mcg PO SUMOTUWEFRSA RF: 0 albuterol sulfate [ProAir HFA] 90 mcg/actuation Hfa Aerosol Inhaler 2 puff INHALATION Q6H PRN (Reason: Shortness Of Breath Or Wheezing) RF: 0 lisinopril 40 mg Tablet 40 mg PO DAILY RF: 0 cholecalciferol (vitamin D3) [Vitamin D3] 5,000 unit Tablet 5,000 unit PO ARNETT RF: 0 diclofenac sodium 1.5 % Drops 40 drp TOPICAL QID RF: 0 magnesium oxide 400 mg magnesium Tablet 400 mg PO TID RF: 0 Discontinued doxycycline monohydrate 100 mg Tablet 100 mg PO BID RF: 0 Discharge Orders: Discharge Order (Routine); Ordered 07/17/19 Ordered By: Johanny Reese Admission Data Admit Date/Time: 07/09/19 11:19 Attending Provider: Johanny Reese Admit Provider: Homero Zarate Primary Care Provider: Brown To Other Providers: Darwin Fairbanks ; Homero Zarate ; Jeffrey Mckee ; Javad Hobson Other Interventions: Discharge Summary Assessment (RN) Last Done: 07/17/19 14:44 DC Date/Time DO NOT enter until pt leaves facility: 07/17/19 17:30
[2019-07-20 08:15] LABS: ANCA Screen C-ANCA POS (Negative); Anti Nuclear Antibody Screen POSITIVE (NEGATIVE); Myeloperoxidase Ab >800.0 AI (<1.0); Proteinase-3 AB <1.0 AI (<1.0); Rheumatoid Factor < 14 IU/ML (<14)
[2019-07-20 14:31] LABS: C-ANCA(Reflex Only Do not Ord) >1:640 Titer (<1:20)
== END 2019-07-17 17:30 | disposition home or self-care (01) | DRG 204 ==
LOC: ED 08:21 → SUATTDRO 11:19 → 2S 11:19